=== PATIENT | female | born 1950 | race Caucasian/White ===

== ENCOUNTER 2017-07-30 08:00 | Outpatient (CLI) | payer MEDICARE, OTHER ==
[2017-07-30 19:24] LABS: BASOPHILS # (AUTO) 0.1 10^3/uL (0.0-0.1); BASOPHILS % (AUTO) 0.7 %; EOSINOPHILS # (AUTO) 0.6 10^3/uL (0.0-0.7); EOSINOPHILS % (AUTO) 7.5 %; HGB - HEMOGLOBIN 14.5 g/dL (12.0-16.0); LYMPHOCYTES # (AUTO) 0.9 10^3/uL (1.5-3.5); MEAN CORPUSCULAR HEMOGLOBIN 28.7 pg (27.0-31.0); MEAN CORPUSCULAR HGB CONC 32.4 g/dL (32.0-36.0); MEAN CORPUSCULAR VOLUME 88.8 fL (81.0-99.0); MEAN PLATELET VOLUME 10.4 fL (7.9-10.8); MONOCYTES # (AUTO) 0.6 10^3/uL (0.0-1.0); MONOCYTES % (AUTO) 7.8 %; NEUTROPHILS # (AUTO) 5.7 10^3/uL (1.5-6.6); PLT - PLATELET COUNT 275 10^3/uL (130-450); RED BLOOD COUNT 5.06 10^6/uL (4.20-5.40); RED CELL DISTRIBUTION WIDTH 12.8 % (12.0-15.0); WHITE BLOOD COUNT 7.9 x10^3/uL (4.8-10.8)
[2017-07-31 13:52] LABS: HEPATITIS C ANTIBODY NON-REACTIVE (NON-REACTIVE)
== END 2017-07-30 08:01 | disposition home or self-care (01) ==
LOC: LAB.WCP 08:00
PROVIDERS: ATTEND Family Medicine
DX: F43.21 Adjustment disorder with depressed mood (principal); F32.9 Major depressive disorder, single episode, unspecified; R53.82 Chronic fatigue, unspecified; Z11.59 Encounter for screening for other viral diseases
CPT/HCPCS: 36415; 84443; 85025; 86803

== ENCOUNTER 2017-08-20 08:00 | Outpatient (CLI) | payer MEDICARE, OTHER ==
[2017-08-20 18:57] LABS: BASOPHILS # (AUTO) 0.1 10^3/uL (0.0-0.1); BASOPHILS % (AUTO) 0.8 %; EOSINOPHILS # (AUTO) 0.8 10^3/uL (0.0-0.7); LYMPHOCYTES % (AUTO) 11.2 %; MEAN CORPUSCULAR HEMOGLOBIN 28.7 pg (27.0-31.0); MEAN CORPUSCULAR HGB CONC 32.8 g/dL (32.0-36.0); MEAN CORPUSCULAR VOLUME 87.3 fL (81.0-99.0); MEAN PLATELET VOLUME 10.7 fL (7.9-10.8); MONOCYTES # (AUTO) 0.7 10^3/uL (0.0-1.0); MONOCYTES % (AUTO) 7.9 %; NEUTROPHILS # (AUTO) 6.4 10^3/uL (1.5-6.6); NEUTROPHILS % (AUTO) 71.1 %; PLT - PLATELET COUNT 305 10^3/uL (130-450); RED BLOOD COUNT 5.25 10^6/uL (4.20-5.40); RED CELL DISTRIBUTION WIDTH 13.3 % (12.0-15.0)
[2017-08-20 19:49] LABS: CALCIUM 9.5 mg/dL (8.5-10.3); CREATININE 0.7 mg/dL (0.4-1.0)
== END 2017-08-20 08:01 | disposition home or self-care (01) ==
LOC: LAB.WCP 08:00
PROVIDERS: ATTEND Family Medicine
DX: E87.1 Hypo-osmolality and hyponatremia (principal); G56.00 Carpal tunnel syndrome, unspecified upper limb; R53.82 Chronic fatigue, unspecified
CPT/HCPCS: 36415; 80048; 85025

== ENCOUNTER 2017-11-08 17:24 | Outpatient (CLI) | payer MEDICARE, OTHER | END 2017-11-08 17:25 | disposition short-term general hospital (02) | LOC: EMS 17:24 | PROVIDERS: ATTEND Surgery | DX: R06.00 Dyspnea, unspecified (principal) | CPT/HCPCS: A0170; A0425; A0427; A0433 ==

== ENCOUNTER 2017-11-08 17:37 | Emergency (ER) | payer MEDICARE, OTHER ==
[2017-11-08] MEDS ORDERED: ALBUTEROL NEB 2.5 MG/3 ML INH STA ×2 (17:39→18:33)
[2017-11-08] MEDS ORDERED: DEXAMETHASONE 10 MG/ML VIAL IVP STA (17:39)
--- NOTE | 2017-11-08 17:42 | ED Physician Documentation ---
PD HPI DYSPNEA - Stated complaint Stated Complaint: RESP DISTRESS - History obtained from History obtained from: Patient, EMS - History of Present Illness Timing - onset: Other (67-year-old woman with history of COPD with home O2 and has been intubated before for exacerbations of COPD presents with a two-week illness with worsening productive cough and shortness of breath became much worse today despite using nebs at home. There is no fever. She denies any chest pain but does have some upper back pain. She received partial DuoNeb in route without much improvement.) Review of Systems Ten Systems: 10 systems reviewed and negative Constitutional: denies: Fever, Chills Throat: denies: Dental pain / toothache, Sore throat Cardiac: denies: Chest pain / pressure, Palpitations Respiratory: reports: Dyspnea, Cough. denies: Hemoptysis, Wheezing PD PAST MEDICAL HISTORY - Past Medical History Cardiovascular: None Respiratory: COPD, Other Neuro: None Endocrine/Autoimmune: HyPOthyroidism GI: None DIE ATTACHER: None : None HEENT: None Psych: Claustrophobia Musculoskeletal: Osteoarthritis Derm: None - Past Surgical History Past Surgical History: Yes General: Appendectomy Ortho: Shoulder arthroplasty /DIE ATTACHER: Hysterectomy HEENT: Cataracts, Tonsil/Adenoidectomy - Present Medications Home Medications: Ambulatory Orders Medication Instructions Recorded Confirmed Albuterol [Ventolin Hfa] 2 puffs INH Q4H PRN 03/10/13 08/21/15 Multivitamin [Multivitamins] 1 tab PO DAILY 03/10/13 08/22/15 [place]-3 Fatty Acids/Fish Oil 1 each PO DAILY 03/10/13 08/22/15 [[place] 3 Fish Oil Softgel] Aspirin Chewable [[place] 81 mg PO DAILY 04/29/13 08/21/15 Aspirin] Albuterol Sulfate 2.5 mg IH .BID-QID PRN 08/22/15 08/22/15 Budesonide [Pulmicort Flexhaler] 1 puffs IH BID 08/22/15 08/22/15 Olodaterol HCl [[place] Respimat] 2 puffs IH DAILY 08/22/15 08/22/15 Theophylline Anhydrous [Theochron] 200 mg PO Q12H 08/22/15 08/22/15 Tiotropium [place] [Spiriva 2 puffs IH DAILY 01/25/16 01/25/16 Respimat] Levalbuterol [Xopenex] 11/08/17 11/08/17 - Allergies Allergies/Adverse Reactions: Allergies Allergy/AdvReac Type Severity Reaction Status Date / Time barley AdvReac Respiratory Verified 08/26/15 07:17 corn AdvReac Respiratory Verified 08/26/15 07:19 oats AdvReac Respiratory Verified 08/26/15 07:19 rice AdvReac Respiratory Verified 08/26/15 07:19 wheat AdvReac Respiratory Verified 08/26/15 07:19 - Social History Does the pt smoke?: No Smoking Status: Former smoker Does the pt drink ETOH?: No Does the pt have substance abuse?: No - Immunizations Immunizations are current?: Yes - POLST Patient has POLST: No POLST Status: Full Code PD ED PE NORMAL - Vitals Vital signs reviewed: Yes - General General: Alert and oriented X 3, Other (She is in moderate respiratory distress , speaking in very short sentences) - HEENT HEENT: PERRL, EOMI, Ears normal - Neck Neck: Supple, no meningeal sign, No bony TTP - Cardiac Cardiac: RRR, No murmur - Respiratory Respiratory: Other (Speaking in short sentences and tachypneic, she is tight throughout with rhonchi throughout) - Abdomen Abdomen: Soft, Non tender - Back Back: No CVA TTP, No spinal TTP - Derm Derm: Normal color, Warm and dry - Extremities Extremities: No edema, No calf tenderness / cord - Neuro Neuro: Alert and oriented X 3, Normal speech - Psych Psych: Normal mood, Normal affect Results - Vitals Vitals: Vital Signs - 24 hr 11/08/17 11/08/17 11/08/17 17:39 17:50 18:48 Temperature 36.4 C L Heart Rate 123 H 120 H 122 H Respiratory 32 H 22 22 Rate Blood Pressure 151/81 H O2 Saturation 100 11/08/17 11/08/17 18:49 19:01 Temperature Heart Rate 123 H 128 H Respiratory 20 20 Rate Blood Pressure 168/83 H 114/74 O2 Saturation 97 96 Oxygen O2 Source Room air - EKG (time done) 1743 Rate: Rate (enter#) (114) Rhythm: Sinus tachycardia [place]: Normal Intervals: Normal MO QRS: Normal Ischemia: Normal ST segments Computer interpretation: Agree with computer - Labs Labs: Laboratory Tests 11/08/17 11/08/17 11/08/17 17:43 17:43 17:43 WBC 17.1 H RBC 5.37 Hgb 15.0 Hct 45.3 MCV 84.3 MCH 27.9 MCHC 33.1 RDW 14.0 Plt Count 341 MPV 8.0 Neut # 11.7 H Lymph # 1.5 [place] # 1.1 H Eos # 2.6 H Baso # 0.1 Absolute Nucleated RBC 0.01 Band Neuts % (Manual) Not Reportable Abnorm Lymph % (Manual) Not Reportable Nucleated RBC % 0.1 Neutrophils # (Manual) Not Reportable Lymphocytes # (Manual) Not Reportable Monocytes # (Manual) Not Reportable Eosinophils # (Manual) Not Reportable Basophils # (Manual) Not Reportable Differential Comment MANUAL=AUTO DIFF Platelet Estimate NORMAL (130-450,000) Platelet Morphology NORMAL APPEARANCE RBC Morph Micro Appear NORMAL APPEARANCE PT 12.4 INR 1.1 Bld Gas Analysis Time Sample Site ABG pH ABG pCO2 ABG pO2 ABG HCO3 ABG Total CO2 ABG O2 Saturation ABG Oximetry Spot Check ABG Base Excess Dae Test VBG pH VBG pCO2 VBG pO2 VBG HCO3 VBG Total CO2 VBG O2 Saturation VBG Base Excess Respiration Rate O2 Delivery Device Vent Mode FiO2 Tidal Volume PEEP Pressure Support Vent Sodium 135 Potassium 4.3 Chloride 97 L Carbon Dioxide 32 Anion Gap 6.0 BUN 17 Creatinine 0.6 Estimated GFR (MDRD) 100 Glucose 136 H Lactic Acid Calcium 9.4 Total Bilirubin 0.4 AST 21 ALT 18 Alkaline Phosphatase 62 Troponin I Total Protein 8.1 Albumin 3.8 Globulin 4.3 H Albumin/Globulin Ratio 0.9 L Lipase 10 L Influenza A (Rapid) Influenza B (Rapid) 11/08/17 11/08/17 11/08/17 17:43 17:43 17:43 WBC RBC Hgb Hct MCV MCH MCHC RDW Plt Count MPV Neut # Lymph # [place] # Eos # Baso # Absolute Nucleated RBC Band Neuts % (Manual) Abnorm Lymph % (Manual) Nucleated RBC % Neutrophils # (Manual) Lymphocytes # (Manual) Monocytes # (Manual) Eosinophils # (Manual) Basophils # (Manual) Differential Comment Platelet Estimate Platelet Morphology RBC Morph Micro Appear PT INR Bld Gas Analysis Time Sample Site ABG pH ABG pCO2 ABG pO2 ABG HCO3 ABG Total CO2 ABG O2 Saturation ABG Oximetry Spot Check ABG Base Excess Dae Test VBG pH 7.296 L VBG pCO2 62.4 H VBG pO2 35.2 VBG HCO3 29.7 H VBG Total CO2 31.7 H VBG O2 Saturation 68.9 VBG Base Excess 1.3 Respiration Rate O2 Delivery Device Vent Mode FiO2 Tidal Volume PEEP Pressure Support Vent Sodium Potassium Chloride Carbon Dioxide Anion Gap BUN Creatinine Estimated GFR (MDRD) Glucose Lactic Acid 1.6 Calcium Total Bilirubin AST ALT Alkaline Phosphatase Troponin I < 0.04 Total Protein Albumin Globulin Albumin/Globulin Ratio Lipase Influenza A (Rapid) Influenza B (Rapid) 11/08/17 11/08/17 18:55 19:20 WBC RBC Hgb Hct MCV MCH MCHC RDW Plt Count MPV Neut # Lymph # [place] # Eos # Baso # Absolute Nucleated RBC Band Neuts % (Manual) Abnorm Lymph % (Manual) Nucleated RBC % Neutrophils # (Manual) Lymphocytes # (Manual) Monocytes # (Manual) Eosinophils # (Manual) Basophils # (Manual) Differential Comment Platelet Estimate Platelet Morphology RBC Morph Micro Appear PT INR Bld Gas Analysis Time 192 Sample Site RIGHT RADIAL ABG pH 7.39 ABG pCO2 43 ABG pO2 128 H ABG HCO3 25.8 ABG Total CO2 27.1 ABG O2 Saturation 98 ABG Oximetry Spot Check 96 ABG Base Excess 0.7 Dae Test POSITIVE VBG pH VBG pCO2 VBG pO2 VBG HCO3 VBG Total CO2 VBG O2 Saturation VBG Base Excess Respiration Rate 20 O2 Delivery Device VENTILATOR Vent Mode SIMV FiO2 50.00 Tidal Volume 400 PEEP 5 Pressure Support Vent 10 Sodium Potassium Chloride Carbon Dioxide Anion Gap BUN Creatinine Estimated GFR (MDRD) Glucose Lactic Acid Calcium Total Bilirubin AST ALT Alkaline Phosphatase Troponin I Total Protein Albumin Globulin Albumin/Globulin Ratio Lipase Influenza A (Rapid) Negative Influenza B (Rapid) Negative Procedures - Intubation Provider: Emergency physician Medications: Etomidate (20mg IVP), Succinylcholine (200mg IVP) Blade: [place] (3) Tube: Size-enter number (7.5), Cuffed Route: Oral Confirmation: Direct visualization, Bilateral breath sounds, No abdominal breath sound, Pulse ox, Chest xray Complications: No compications PD MEDICAL DECISION MAKING - ED course ED course: 67-year-old woman with history of severe COPD and patient's for same presents with respiratory distress and evidence of pneumonia on x-ray. She was quickly tiring out after initial presentation here and felt like she needed intubation and I agreed. She confirmed that her daughter can make decisions for her and requested transfer to [facility] after intubation as opposed to staying here. She was put on a fentanyl drip and had a couple boluses of Ativan. She received Levaquin and vancomycin for the large left-sided pneumonia. I spoke with Dr. SAENZ, warehousing technician at [facility] who accepted her in transfer at 1920, cobras completed. Family in agreement. Of note because of wind airlift was unable to fly and she will need to be transferred by ground - Critical Care Time(min): 45 Time Includes: Direct patient care, Review records, Reassess patient, Document care, Coordinate care, Medical consult, Family consult for tx jun Data interpretation: Labs, Pulse ox Procedures included in critical care time: Peripheral IV Procedures excluded from critical care time: EKG Departure - Departure Disposition: 02 Transfer Acute Care Hosp Clinical Impression: Severe chronic obstructive pulmonary disease Respiratory failure Qualifiers: Chronicity: acute Respiratory failure complication: hypoxia and hypercapnia Qualified Code(s): J96.01 - Acute respiratory failure with hypoxia Pneumonia Qualifiers: Pneumonia type: due to unspecified organism Laterality: left Lung location: unspecified part of lung Qualified Code(s): J18.9 - Pneumonia, unspecified organism Condition: Critical
[2017-11-08 17:55] LABS: VBG BASE EXCESS 1.3 mmol/L (-2 - +2); VBG PCO2 62.4 mmHg (41-51); VBG PH 7.296 (7.31-7.41); VBG PO2 35.2 mmHg (25-47); VBG TOTAL CO2 31.7 mmol/L (24-29)
[2017-11-08 17:56] LABS: BASOPHILS # (AUTO) 0.1 10^3/uL (0.0-0.1); BASOPHILS % (AUTO) 0.6 %; EOSINOPHILS # (AUTO) 2.6 10^3/uL (0.0-0.7); EOSINOPHILS % (AUTO) 15.5 %; LYMPHOCYTES # (AUTO) 1.5 10^3/uL (1.5-3.5); LYMPHOCYTES % (AUTO) 8.7 %; MEAN CORPUSCULAR HEMOGLOBIN 27.9 pg (27.0-31.0); MEAN CORPUSCULAR HGB CONC 33.1 g/dL (32.0-36.0); MEAN CORPUSCULAR VOLUME 84.3 fL (81.0-99.0); MONOCYTES # (AUTO) 1.1 10^3/uL (0.0-1.0); MONOCYTES % (AUTO) 6.6 %; NEUTROPHILS # (AUTO) 11.7 10^3/uL (1.5-6.6); NEUTROPHILS % (AUTO) 68.6 %; PLT - PLATELET COUNT 341 10^3/uL (130-450); RED BLOOD COUNT 5.37 10^6/uL (4.20-5.40); WHITE BLOOD COUNT 17.1 x10^3/uL (4.8-10.8)
[2017-11-08 17:58] LABS: INR 1.1 (0.8-1.2); PT - PROTHROMBIN TIME 12.4 secs (9.9-12.6)
[2017-11-08 18:03] LABS: ALBUMIN 3.8 g/dL (3.2-5.5); ALBUMIN/GLOBULIN RATIO 0.9 (1.0-2.2); BILIRUBIN,TOTAL 0.4 mg/dL (0.2-1.0); CALCIUM 9.4 mg/dL (8.5-10.3); CREATININE 0.6 mg/dL (0.4-1.0); TOTAL PROTEIN 8.1 g/dL (6.7-8.2)
[2017-11-08] MEDS ORDERED: LORazepam 2 MG/ML VIAL IVP STA ×3 (18:07→20:36)
[2017-11-08] MEDS ORDERED: SUCCINYLCHOLINE 200 MG/10 ML VIAL IVP STA (18:07)
[2017-11-08] MEDS ORDERED: ETOMIDATE 40 MG/20 ML VIAL IVP STA (18:07)
[2017-11-08] MEDS ORDERED: VANCOMYCIN INJ 1.5 GM in SODIUM CHLORIDE 0.9% 500 ML IV STA (18:14)
[2017-11-08] MEDS ORDERED: levoFLOXacin 750 MG/150 ML 750 MG/150 ML BAG IV ONE (18:14)
--- NOTE | 2017-11-08 18:16 | XRAY Report ---
EXAM: CHEST RADIOGRAPHY EXAM DATE: 11/08/2017 05:58 PM. CLINICAL HISTORY: Dyspnea. COMPARISON: 08/01/2017. TECHNIQUE: 1 view. FINDINGS: Lungs/Pleura: Hyperexpanded with coarse lung markings. Increased hazy infiltration throughout the lef t lung, notably in the mid to lower lung zones. Small left effusion. No right effusion, consolidation , or pneumothorax. Mediastinum: Within exam limitations, the cardiomediastinal contour is normal. Upper lobe vessels not distended. Other: Osteopenia. IMPRESSION: Increased infiltrates predominantly in the left mid and lower lung zones. [facility] Referring Provider Line: [phone] SITE ID: [id number]
[2017-11-08] MEDS ORDERED: SODIUM CHLORIDE 0.9% 250 ML IV ONE (18:20)
[2017-11-08] MEDS ORDERED: fentaNYL 100 MCG/2 ML VIAL IVP STA (18:37)
[2017-11-08] MEDS ORDERED: fentaNYL 2,500 MCG in SODIUM CHLORIDE 0.9% 200 ML IV SCH (19:00)
[2017-11-08 19:14] LABS: DIFFERENTIAL COMMENT MANUAL=AUTO DIFF; PLATELET ESTIMATE, MANUAL NORMAL (130-450,000) (NORMAL); PLATELET MORPHOLOGY NORMAL APPEARANCE (NORMAL); RBC MORPHOLOGY (MULTIPLE) NORMAL APPEARANCE (NORMAL)
--- NOTE | 2017-11-08 19:24 | XRAY Preliminary Report ---
Exam: XR CHEST 1 VIEW X-RAY IMPRESSION: 1. Tip of endotracheal tube 5 cm above the shawn. 2. Decreasing acute on chronic lung disease involving the left lung. Right to left mediastinal shift indicates an atelectatic component as regards to the left lung findings. 3. Left hilar fullness raising the possibility of a left hilar mass. [facility] SITE ID: [id number]
[2017-11-08 19:26] LABS: ABG BASE EXCESS 0.7 mmol/L (-2.0-3.0); ABG HCO3 25.8 mmol/L (22.0-26.0); ABG OXYGEN SATURATION 98 % (94-98); ABG PCO2 43 mmHg (34-45); ABG PH 7.39 (7.35-7.45); ABG PO2 128 mmHg (80-100); ABG TCO2 27.1 MMOL/L (21.0-29.0); ALLEN TEST POSITIVE
--- NOTE | 2017-11-08 19:33 | XRAY Report ---
EXAM: CHEST RADIOGRAPHY EXAM DATE: 11/08/2017 06:37 PM. CLINICAL HISTORY: Intubated. Respiratory distress. COMPARISON: Earlier today at 1749. Chest CT 07/02/2014. TECHNIQUE: 1 view. FINDINGS: Lungs/Pleura: Overexpanded right lung, emphysematous changes. Relative volume lossin the left lung as compared to the right. Mild decrease in the patchy reticulonodular infiltrates seen involving the inferior half of the left lung. Persistent small left pleural effusion. No pneumothorax. Mediastinum: Heart is normal caliber. Stable mild [id number] mediastinal shift. Left hilar enlarge ment. Other: Interval intubation with the tip of the endotracheal tube 5 cm above the shawn. IMPRESSION: 1. Tip of the endotracheal tube 5 cm above the shawn. 2. Decreasing acute on chronic lung disease involving the left lung. [id number] mediastinal shift indicates an atelectatic component as regards to the left lung findings. 3. Left hilar fullness raising the possibility of a left hilar mass. [facility] Referring Provider Line: [phone] SITE ID: [id number]
[2017-11-08] MEDS ORDERED: VANCOMYCIN 1 GM VIAL ONE (20:26)
[2017-11-08] MEDS ORDERED: ONDANSETRON 4 MG/2 ML VIAL IVP STA (20:36)
[2017-11-08 20:59] VITALS: BP 89/69
== END 2017-11-08 21:01 | disposition short-term general hospital (02) ==
LOC: ED 17:37
DX: J96.01 Acute respiratory failure with hypoxia (principal); J18.9 Pneumonia, unspecified organism; J44.0 Chronic obstructive pulmonary disease with (acute) lower respiratory infection; Z79.51 Long term (current) use of inhaled steroids; Z79.82 Long term (current) use of aspirin; Z87.891 Personal history of nicotine dependence
CPT/HCPCS: 31500; 36415; 51702; 71045; 80053; 82803; 83605; 83690; 84484; 85025; 85610; 87040; 87275; 87276; 93005; 94640; 94770; 96365; 96367; 96375; 96376; 99291; J0330; J2060; J3010; J3370; 36600; 43752; 99285

== ENCOUNTER 2017-12-09 21:44 | Outpatient (CLI) | payer MEDICARE, OTHER | END 2017-12-09 21:45 | disposition critical access hospital (66) | LOC: EMS 21:44 | PROVIDERS: ATTEND Surgery | DX: R06.00 Dyspnea, unspecified (principal) | CPT/HCPCS: A0425; A0433 ==

== ENCOUNTER 2017-12-09 21:55 | Inpatient (IN) | payer MEDICARE, OTHER ==
[2017-12-09] MEDS ORDERED: ALBUTEROL NEB 2.5 MG/3 ML INH ONE ×2 (22:13→22:45)
[2017-12-09] MEDS ORDERED: CALCIUM GLUCONATE 1000 MG/10 ML VIAL ONE (22:14)
[2017-12-09 22:16] LABS: EOSINOPHILS % (AUTO) 19.7 %; HGB - HEMOGLOBIN 13.9 g/dL (12.0-16.0); LYMPHOCYTES % (AUTO) 14.8 %; MEAN CORPUSCULAR HEMOGLOBIN 26.9 pg (27.0-31.0); MEAN CORPUSCULAR HGB CONC 31.2 g/dL (32.0-36.0); MEAN CORPUSCULAR VOLUME 86.1 fL (81.0-99.0); MEAN PLATELET VOLUME 7.6 fL (7.9-10.8); MONOCYTES % (AUTO) 4.6 %; NEUTROPHILS % (AUTO) 59.9 %; PLT - PLATELET COUNT 387 10^3/uL (130-450); RED BLOOD COUNT 5.15 10^6/uL (4.20-5.40); RED CELL DISTRIBUTION WIDTH 15.2 % (12.0-15.0); WHITE BLOOD COUNT 13.4 x10^3/uL (4.8-10.8)
[2017-12-09] MEDS ORDERED: MORPHINE 2 MG/ML SYRINGE IVP PRN (22:20)
[2017-12-09] MEDS ORDERED: MIDAZOLAM 2 MG/2 ML VIAL IVP PRN (22:20)
[2017-12-09] MEDS ORDERED: PROCHLORPERAZINE 10 MG/2 ML VIAL IVP PRN (22:20)
[2017-12-09] MEDS ORDERED: TERBUTALINE 1 MG/ML VIAL SUBQ ONE (22:21)
--- NOTE | 2017-12-09 22:22 | ED Physician Documentation ---
PD HPI DYSPNEA - Stated complaint Stated Complaint: RESPITORY DISTRESS - Chief complaint Chief Complaint: Resp - History obtained from History obtained from: EMS - History of Present Illness Timing - onset: Today Timing - details: Gradual onset, Still present Improved by: O2, Inhaler/neb Associated symptoms: Cough, Wheezing Similar symptoms before: Work up / diagnostics, Treatment Recently seen: Not recently seen - Additional information Additional information: Patient is a 67 year old female with a history of copd and pulmonary htn who was brought in by ems for respiratory failure. According to ems the patient's daughter called because the patient was hypxoic and was getting progressively worse. When ems arrived patient was found to be hypooxic around 80%. Patient was treated with nebulizer treatments. As patient walked downstairs she became even more hypoxic and asked to be intubated. (patient has been intubated in the past). Patient was successfully intubated and brought to the emergency department. Review of Systems Unable to obtain: Intubated PD PAST MEDICAL HISTORY - Past Medical History Cardiovascular: None Respiratory: COPD, Other Endocrine/Autoimmune: HyPOthyroidism GI: None TRAINS DISPATCHER SUPERVISOR: None : None HEENT: None Psych: Claustrophobia Musculoskeletal: Osteoarthritis Derm: None - Past Surgical History Past Surgical History: Yes General: Appendectomy Ortho: Shoulder arthroplasty /TRAINS DISPATCHER SUPERVISOR: Hysterectomy HEENT: Cataracts, Tonsil/Adenoidectomy - Present Medications Home Medications: Ambulatory Orders Medication Instructions Recorded Confirmed Albuterol [Ventolin Hfa] 2 puffs INH Q4H PRN 03/10/13 08/21/15 Multivitamin [Multivitamins] 1 tab PO DAILY 03/10/13 08/22/15 [place]-3 Fatty Acids/Fish Oil 1 each PO DAILY 03/10/13 08/22/15 [[place] 3 Fish Oil Softgel] Aspirin Chewable [[place] 81 mg PO DAILY 04/29/13 08/21/15 Aspirin] Albuterol Sulfate 2.5 mg IH .BID-QID PRN 08/22/15 08/22/15 Budesonide [Pulmicort Flexhaler] 1 puffs IH BID 08/22/15 08/22/15 Olodaterol HCl [[place]di Respimat] 2 puffs IH DAILY 08/22/15 08/22/15 Theophylline Anhydrous [Theochron] 200 mg PO Q12H 08/22/15 08/22/15 Tiotropium [place] [Spiriva 2 puffs IH DAILY 08/22/15 08/22/15 Respimat] Levalbuterol [Xopenex] 11/08/17 11/08/17 - Allergies Allergies/Adverse Reactions: Allergies Allergy/AdvReac Type Severity Reaction Status Date / Time barley AdvReac Respiratory Verified 08/26/15 07:17 corn AdvReac Respiratory Verified 08/26/15 07:19 oats AdvReac Respiratory Verified 08/26/15 07:19 rice AdvReac Respiratory Verified 08/26/15 07:19 wheat AdvReac Respiratory Verified 08/26/15 07:19 - Social History Does the pt smoke?: No Smoking Status: Never smoker Does the pt drink ETOH?: No Does the pt have substance abuse?: No - Immunizations Immunizations are current?: Yes - POLST Patient has POLST: No POLST Status: Full Code PD ED PE NORMAL - Vitals Vital signs reviewed: Yes - HEENT HEENT: Atraumatic - Abdomen Abdomen: Non distended - Derm Derm: Normal color PD ED PE EXPANDED - General General: Unresponsive, Other (intubated) - HEENT HEENT: Other (intubated) - Neck Neck: JVD present - Cardiac Cardiac: Tachy - Respiratory Respiratory: Wheezing, Other (intubated, breath sounds bilaterally) - Extremities Extremities: No: Pedal edema bilateral - Neuro Neuro: Other (intubated but starting to wake up) Results - Vitals Vitals: Vital Signs - 24 hr 12/09/17 21:55 Temperature 36.7 C Heart Rate 144 H Respiratory 21 Rate O2 Saturation 96 Oxygen O2 Source Mechanical ventilator - EKG (time done) 2204 Rate: Rate (enter#) (121) Rhythm: Sinus tachycardia [place]: LAD QRS: LVH Ischemia: Q waves Compare to prior EKG: Unchanged from prior EKG - Labs Labs: Laboratory Tests 12/09/17 12/09/17 12/09/17 22:00 22:00 22:00 WBC 13.4 H RBC 5.15 Hgb 13.9 Hct 44.3 MCV 86.1 MCH 26.9 L MCHC 31.2 L RDW 15.2 H Plt Count 387 MPV 7.6 L Neut # Not Reportable Lymph # Not Reportable [place] # Not Reportable Eos # Not Reportable Baso # Not Reportable Absolute Nucleated RBC Not Reportable Total Counted 100 Band Neuts % (Manual) 0 Abnorm Lymph % (Manual) 0 Nucleated RBC % Not Reportable Neutrophils # (Manual) 9.0 H Lymphocytes # (Manual) 2.1 Monocytes # (Manual) 0.3 Eosinophils # (Manual) 2.0 H Basophils # (Manual) 0.0 Differential Comment MANUAL DIFFERENTIAL Manual Slide Review Indicated WBC Morphology NORMAL APPEARANCE Platelet Estimate NORMAL (130-450,000) Platelet Morphology NORMAL APPEARANCE RBC Morph Micro Appear NORMAL APPEARANCE Lactic Acid 1.9 Phosphorus Magnesium Troponin I < 0.04 B-Natriuretic Peptide 12/09/17 12/09/17 22:00 22:00 WBC RBC Hgb Hct MCV MCH MCHC RDW Plt Count MPV Neut # Lymph # [place] # Eos # Baso # Absolute Nucleated RBC Total Counted Band Neuts % (Manual) Abnorm Lymph % (Manual) Nucleated RBC % Neutrophils # (Manual) Lymphocytes # (Manual) Monocytes # (Manual) Eosinophils # (Manual) Basophils # (Manual) Differential Comment Manual Slide Review WBC Morphology Platelet Estimate Platelet Morphology RBC Morph Micro Appear Lactic Acid Phosphorus 4.8 H Magnesium 1.9 Troponin I B-Natriuretic Peptide 147 H - Rads (name of study) chest x-ray Radiology: Final report received (pulmonary congestion vs fibrosis and scarring ) PD MEDICAL DECISION MAKING - ED course Complexity details: reviewed old records, reviewed results, re-evaluated patient , considered differential, d/w family, d/w senior staff consultant ED course: Patient was seen and examined at bedside immediately. patient was already intubated sedation was ordered. ekg was performed which showed sinus tach and was relatively unchanged when compared to previous. Patient was treated with continuous albuterol nebs, solumedrol, terbutaline, and magnesium. chest x-ray was performed and previous imaging and notes were reviewed. High School Foreign Language Tutor was at bedside and agreed to admission. Patient was admitted to the critical care unit. - Critical Care Time(min): 30 Time Includes: Direct patient care, Review records, Reassess patient Data interpretation: Labs, Pulse ox, ABG, CXR, Prior EKG, Cardiac output Departure - Departure Disposition: [facility] DC/Xfer Clinical Impression: Severe chronic obstructive pulmonary disease, Respiratory failure Condition: Critical
[2017-12-09 22:23] LABS: ABNORMAL LYMPHS % (MANUAL) 0 %; BAND NEUTROPHILS % (MANUAL) 0 %
[2017-12-09] MEDS ORDERED: MAGNESIUM SULFATE 2 GRAM 2 GM/50 ML BAG IV ONE (22:26)
[2017-12-09] MEDS ORDERED: methylPREDNISolone SUCCINATE 125 MG/2 ML VIAL IVP STA (22:27)
[2017-12-09] MEDS ORDERED: CALCIUM GLUCONATE 1000 MG/10 ML VIAL IVP STA (22:27)
[2017-12-09] MEDS ORDERED: SODIUM CHLORIDE 0.9% 1,000 ML IV ONE ×3 (22:33→23:15)
[2017-12-09 22:37] LABS: LYMPHOCYTES # (MANUAL) 2.1 10^3/uL (1.5-3.5); LYMPHOCYTES % (MANUAL) 16 %; MONOCYTES # (MANUAL) 0.3 10^3/uL (0.0-1.0); NEUTROPHILS % (MANUAL) 67 %; PLATELET ESTIMATE, MANUAL NORMAL (130-450,000) (NORMAL); PLATELET MORPHOLOGY NORMAL APPEARANCE (NORMAL); RBC MORPHOLOGY (MULTIPLE) NORMAL APPEARANCE (NORMAL)
--- NOTE | 2017-12-09 22:37 | XRAY Report ---
EXAM: CHEST RADIOGRAPHY EXAM DATE: 12/09/2017 10:14 PM. CLINICAL HISTORY: Intubation. COMPARISON: 11/08/2017. TECHNIQUE: 1 view. FINDINGS: Lungs/Pleura: Hyperexpanded with coarse lung markings and extensive fibrotic changes, left more than right. No consolidation, definite effusion, or pneumothorax. Mediastinum: Overall heart size within normal limits and unchanged. Left hilar fullness. Upper lobe v essels not distended. Other: Endotracheal tube tip at level of aortic arch about 4.9 cm above shawn. IMPRESSION: 1. ETT tip 4.9 cm above shawn. 2. Severe chronic lung disease similar to previous exam. [facility] Referring Provider Line: [phone] SITE ID: [id number]
[2017-12-09 22:38] LABS: DIFFERENTIAL COMMENT MANUAL DIFFERENTIAL
[2017-12-09 22:42] LABS: ABG BASE EXCESS -1.4 mmol/L (-2.0-3.0); ABG HCO3 25.3 mmol/L (22.0-26.0); ABG OXYGEN SATURATION 98 % (94-98); ABG PCO2 51 mmHg (34-45); ABG PH 7.32 (7.35-7.45); ABG PO2 136 mmHg (80-100); ABG TCO2 26.9 MMOL/L (21.0-29.0)
[2017-12-09 22:43] LABS: ALLEN TEST POSITIVE
[2017-12-09 22:52] LABS: BILIRUBIN,URINE NEGATIVE (NEGATIVE); GLUCOSE, URINE (UA) NEGATIVE (NEGATIVE); KETONES,URINE (UA) NEGATIVE (NEGATIVE); LEUKOCYTE ESTERASE, URINE NEGATIVE (NEGATIVE); NITRITE,URINE NEGATIVE (NEGATIVE); OCCULT BLOOD,URINE NEGATIVE (NEGATIVE); PH,URINE 5.5 PH (5.0-7.5); PROTEIN,URINE 30 mg/dL (NEGATIVE); UROBILINOGEN,URINE 0.2 (NORMAL) E.U./dL (NORMAL)
--- NOTE | 2017-12-09 22:57 | HISTORY & PHYSICAL EXAMINATION ---
Chief Complaint - Chief Complaint Chief Complaint: Shortness of breath History of Present Illness - Admitted From Admitted From:: Emergency department - History Obtained From Records Reviewed: Yes History obtained from: Patient's daughter is the patient was intubated Exam Limitations: Patient is intubated and sedated - History of Present Illness HPI Comment/Other: Patient is a 67-year-old female with a past medical history significant for end- stage COPD on 4 L of home oxygen, pulmonary fibrosis, pulmonary hypertension, cor pulmonale, claustrophobia and anxiety who presented to the emergency department with chief complaint of shortness of breath. The patient was recently admitted to [facility] in [place] on on 11/08/2017 for acute respiratory failure with hypoxia and hypercapnia. At that time the patient was found to have pneumonia and a COPD exacerbation. The patient required intubation for 2-3 days and had a prolonged hospitalization over 1 week. According to the patient's daughter the patient returned home with steroids and was continued on her breathing treatments. The patient's daughter states the patient was initially improving and appeared to be getting better. She states the patient was still limited with her exertion. But she states that she was able to walk 5-10 feet without terrible difficulties. The patient however has declined significantly over the last week to 10 days. The patient' s daughter states that the patient had increasing shortness of air over the last 4-5 days. She states that over the last 4 days her mother has been basically bedbound. She states that just sitting up in bed makes her very short of breath and drops her oxygen saturation. She states that her oxygen saturation drops to the low 80s with just sitting up in bed. The patient has also been having a cough. The patient's daughter states that the patient's cough has been getting worse over the last couple of days and she has had increasing hemoptysis. The patient's daughter states that the hemoptysis is been there since her hospitalization at [place]. She states that while the patient was at [place] she self extubated and caused some trauma in her airways and has been having hemoptysis since. The patient has not had any fevers or chills, she denied any chest pain according to the patient's daughter. The patient's daughter states that the patient has not had any changes in her appetite, recent unintentional weight loss, abdominal pain, nausea, vomiting, diarrhea, constipation, or any focal neurologic deficits. The patient's oxygen saturations were as low as 71% today when she sat up in bed and that was on 4-1/2 L of oxygen. She had significant difficulties recovering and was having severe shortness of breath and that is the point at which the patient's daughter decided to call 911. According to the patient's daughter the patient has not been having any headaches, blurred vision, runny nose, sore throat, nasal congestion, orthopnea, PND, increased lower extremity swelling, joint aches, muscle aches, joint swelling, back pain, neck stiffness, night sweats or weight loss. When paramedics arrived at the patient's home the patient was found to be in respiratory distress. She was hypoxic and using accessory muscles of breathing. The paramedics attempted to take her down a flight of stairs and the patient was so severely short of breath that she asked to be intubated. The paramedics found that the patient was declining rapidly and decided to intubate her on scene. The patient was brought to the emergency department on a ventilator. On presentation to the emergency department the patient was afebrile she was tachycardic with a heart rate in the 140s and slightly tachypneic. She was otherwise saturating well on the ventilator at 100% FiO2. The patient underwent routine lab work which showed a leukocytosis of 13.4 and a potassium of 5.3 but was otherwise unremarkable. The patient's troponin was less than 0.04 and BNP was just 147. Patient's urine showed no signs of infection. The patient did undergo a blood gas after she had been on the ventilator for some time. The patient's blood gas did show slight acidosis with hypercapnia and hypoxia. The patient also underwent a chest x-ray which revealed severe chronic lung disease similar to her prior chest x-rays with no obvious new consolidation. However given the severity of the patient's presentation and her recent hospitalization with pneumonia and elevated white blood cell count it was decided that the patient would be treated for pneumonia. The patient was admitted to the intensive care unit for acute respiratory failure with hypoxia and hypercapnia. History - Past Medical History Cardiovascular: reports: Congestive heart failure (Right-sided heart failure with pulmonary hypertension) Respiratory: reports: COPD, Other (Pulmonary fibrosis, pulmonary hypertension) GI: reports: None SUPPLY SERVICE WORKER: reports: None : reports: None HEENT: reports: None Psych: reports: Claustrophobia Musculoskeletal: reports: Osteoarthritis Derm: reports: None MRSA Hx?: No - Past Surgical History General: reports: Appendectomy Ortho: reports: Shoulder arthroplasty /SUPPLY SERVICE WORKER: reports: Hysterectomy HEENT: reports: Cataracts, Tonsil/Adenoidectomy - Family & Social History Family History: Mother: (Mom at 78 with history of IL and was a smoker. Dad at 82 with chronic bronchitis), CAD, IL (Brother of an IL at the age of 60), Father: , COPD/Emphysema, Brother: , IL Living arrangement: At home Living Situation: With family Social History Notes: The patient lives in [place] with her family. She lives with her daughter, granddaughter and disabled . The home is the patient's home. Recently since her hospitalization the patient has been confined to a walker and the bed. She is very limited. Prior to that according to the daughter the patient was still fairly active and able to perform her activities of daily living independently. The patient has been twice and . She has 1 biological child but did raise 6 children through marriage. The patient does not drink alcohol or use any illicit drugs. She was previously a 1 pack per day smoker for 40 years but has quit more than 3 years ago now. - POLST Patient has POLST: No POLST Status: Full Code Meds/Allgy - Home Medications Home Medications: Ambulatory Orders Medication Instructions Recorded Confirmed Albuterol [Ventolin Hfa] 2 puffs INH Q4H PRN 03/10/13 08/21/15 Multivitamin [Multivitamins] 1 tab PO DAILY 03/10/13 08/22/15 [place]-3 Fatty Acids/Fish Oil 1 each PO DAILY 03/10/13 08/22/15 [[place]ard 3 Fish Oil Softgel] Aspirin Chewable [[place] 81 mg PO DAILY 04/29/13 08/21/15 Aspirin] Albuterol Sulfate 2.5 mg IH .BID-QID PRN 08/22/15 08/22/15 Budesonide [Pulmicort Flexhaler] 1 puffs IH BID 08/22/15 08/22/15 Olodaterol HCl [[place]riverdi Respimat] 2 puffs IH DAILY 08/22/15 08/22/15 Theophylline Anhydrous [Theochron] 200 mg PO Q12H 08/22/15 08/22/15 Tiotropium [place] [Spiriva 2 puffs IH DAILY 08/22/15 08/22/15 Respimat] Levalbuterol [Xopenex] 11/08/17 11/08/17 - Allergies Allergies/Adverse Reactions: Allergies Allergy/AdvReac Type Severity Reaction Status Date / Time barley AdvReac Respiratory Verified 08/26/15 07:17 corn AdvReac Respiratory Verified 08/26/15 07:19 oats AdvReac Respiratory Verified 08/26/15 07:19 propofol AdvReac Unknown Verified 12/10/17 00:12 rice AdvReac Respiratory Verified 08/26/15 07:19 wheat AdvReac Respiratory Verified 08/26/15 07:19 Review of Systems - Other Findings Other Findings: A comprehensive review of systems was performed the pertinent positives and negatives are stated above in the HPI and the remainder of the review of systems is negative. Exam - Vital Signs Reviewed Vital Signs: Yes Vital Signs: Vital Signs x48h Pulse Resp BP Pulse Ox 12/09/17 22:50 121 H 15 119/63 98 12/09/17 22:39 114 H 17 121/70 99 12/09/17 22:25 122 H 13 120/92 H 99 - Physical Exam General Appearance: positive: Moderate distress (Patient intubated and sedated) , Other (Patient on a ventilator) Eyes Bilateral: positive: Normal inspection, PERRL, EOMI, No lid inflammation, Conjunctivae nml, No scleral icterus ENT: positive: ENT inspection nml, Pharynx nml, No signs of dehydration. negative: Purulent nasal drainage, Pharyngeal erythema, Oral lesions Neck: positive: Nml inspection, Thyroid nml, No JVD, Trachea midline. negative : Lymphadenopathy (R), Lymphadenopathy (L), Stiff neck, Carotid bruit, Tracheal deviation Respiratory: positive: Wheezes (Patient has scattered wheezes with tight lungs) , Rales (Expiratory crackles), Rhonchi (Coarse lung sounds), Other (Patient has decreased breath sounds bilaterally) Cardiovascular: positive: No murmur, No gallop, Tachycardia Peripheral Pulses: positive: 2+ Abdomen: positive: Non-tender, No organomegaly, Nml bowel sounds, No distention. negative: Guarding, Rebound, Hepatomegaly Back: positive: Nml inspection. negative: CVA tenderness (R), CVA tenderness (L ) Skin: positive: Color nml, No rash, Warm. negative: Diaphoresis, Pallor, Skin rash Extremities: positive: Non-tender, Full ROM, Nml appearance, No pedal edema Neurologic/Psychiatric: positive: Motor nml (She appears to be moving both upper and lower extremities appropriately), Other (Patient is intubated and sedated.) Conclusion/Plan - Problem List (1) Acute on chronic respiratory failure with hypoxia and hypercapnia Conclusion/Plan: Patient was recently hospitalized at [facility] in [place] for 1 week requiring intubation for acute respiratory failure secondary to pneumonia and COPD exacerbation. The patient initially was recovering well but had a significant decline over the last week and a half. The patient became increasingly hypoxic, increasingly short of air, with worsening cough and increasing dyspnea with exertion. Today the patient was in severe respiratory distress and required intubation on arrival of EMS. 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 She has very minimal reserve and even any mild respiratory illness will put her into respiratory failure. Patient's respiratory failure is likely combination of COPD exacerbation and likely pneumonia. Although the patient's chest x-ray is not showing any obvious infiltrate she does have a leukocytosis, tachycardia on presentation and likely does have pneumonia. Plan: Patient will be continued on ventilator and we will wean down vent settings and do CPAP trial once patient is ready Once patient is extubated we will get a palliative care consult as the patient appears to have end-stage COPD and has told her daughter in the past that she has no desire to get a lung transplant. Patient will be treated for COPD exacerbation with IV steroids, duo nebs and ventilator Patient will also be treated for healthcare associated pneumonia with broad- spectrum antibiotics We will continue to monitor patient closely in the intensive care unit If patient is not improving or we are unable to get the patient off the ventilator the patient will be transferred to a larger center with pulmonology and an maintenance construction helper. The patient's request is that if we decide to transfer that she be transferred [facility]. (2) HCAP (healthcare-associated pneumonia) Conclusion/Plan: The patient presented with acute on chronic respiratory failure and required intubation. Although the patient's chest x-ray does not show obvious infiltrate. The patient does present with leukocytosis, tachycardia, hypoxia, hypercapnia and severe respiratory failure. The patient was also recently hospitalized with pneumonia. The patient will be treated for healthcare associated pneumonia and we will reassess with daily chest x-ray, sputum cultures and assessment of her respiratory status. Plan: Patient will be treated with IV vancomycin and Zosyn for healthcare associated pneumonia given her recent hospitalization If patient's repeat chest x-rays, sputum culture are negative and her respiratory status improves we will consider stopping antibiotics Wean off ventilator (3) COPD exacerbation Conclusion/Plan: The patient has end-stage COPD and is on 4 L of oxygen at home. The patient appears to have severe emphysema and pulmonary fibrosis on her chest x-ray. She was recently hospitalized and intubated for a COPD exacerbation in the setting of pneumonia. She appears to be presenting with similar presentation today. She has been intubated and does have very tight lungs on examination. Plan: Patient will be treated with IV Solu-Medrol, duo nebs initially around the clock and then as needed She will be given IV antibiotics for healthcare associated pneumonia Patient will be continued on the ventilator and we will wean down vent settings Patient will need a palliative care consult once she is extubated and stable. (4) Pulmonary hypertension Conclusion/Plan: Patient has pulmonary hypertension and right-sided heart failure according to her previous echocardiogram from 2013. The patient's PA pressure at that time was 48 mmHg I suspect that it is much worse at this time. The patient's pulmonary hypertension and right-sided heart failure is likely secondary to her severe COPD and emphysema Plan: We will get an echocardiogram Treat as above for COPD and pneumonia Palliative care consult (5) DVT prophylaxis Conclusion/Plan: Patient will be placed on Lovenox for DVT prophylaxis while she is hospitalized. - Lab Results Lab results reviewed: Yes Fish Bones: 12/09/17 22:00 12/09/17 22:46 Other Lab Results: Laboratory Results WBC 13.4 x10^3/uL (4.8-10.8) H 12/09/17 22:00 RBC 5.15 10^6/uL (4.20-5.40) 12/09/17 22:00 Hgb 13.9 g/dL (12.0-16.0) 12/09/17 22:00 Hct 44.3 % (37.0-47.0) 12/09/17 22:00 MCV 86.1 fL (81.0-99.0) 12/09/17 22:00 MCH 26.9 pg (27.0-31.0) L 12/09/17 22:00 MCHC 31.2 g/dL (32.0-36.0) L 12/09/17 22:00 RDW 15.2 % (12.0-15.0) H 12/09/17 22:00 Plt Count 387 10^3/uL (130-450) 12/09/17 22:00 MPV 7.6 fL (7.9-10.8) L 12/09/17 22:00 Neut # Not Reportable 12/09/17 22:00 Lymph # Not Reportable 12/09/17 22:00 [place] # Not Reportable 12/09/17 22:00 Eos # Not Reportable 12/09/17 22:00 Baso # Not Reportable 12/09/17 22:00 Absolute Nucleated RBC Not Reportable 12/09/17 22:00 Total Counted 100 12/09/17 22:00 Band Neuts % (Manual) 0 % (0-10) 12/09/17 22:00 Abnorm Lymph % (Manual) 0 % 12/09/17 22:00 Nucleated RBC % Not Reportable 12/09/17 22:00 Neutrophils # (Manual) 9.0 10^3/uL (1.5-6.6) H 12/09/17 22:00 Lymphocytes # (Manual) 2.1 10^3/uL (1.5-3.5) 12/09/17 22:00 Monocytes # (Manual) 0.3 10^3/uL (0.0-1.0) 12/09/17 22:00 Eosinophils # (Manual) 2.0 10^3/uL (0-0.7) H 12/09/17 22:00 Basophils # (Manual) 0.0 10^3/uL (0-0.1) 12/09/17 22:00 Differential Comment MANUAL DIFFERENTIAL 12/09/17 22:00 Manual Slide Review Indicated 12/09/17 22:00 WBC Morphology NORMAL APPEARANCE (NORMAL) 12/09/17 22:00 Platelet Estimate NORMAL (130-450,000) (NORMAL) 12/09/17 22:00 Platelet Morphology NORMAL APPEARANCE (NORMAL) 12/09/17 22:00 RBC Morph Micro Appear NORMAL APPEARANCE (NORMAL) 12/09/17 22:00 Bld Gas Analysis Time 2240 12/09/17 22:31 Sample Site LEFT RADIAL 12/09/17 22:31 ABG pH 7.32 (7.35-7.45) L 12/09/17 22:31 ABG pCO2 51 mmHg (34-45) H 12/09/17 22:31 ABG pO2 136 mmHg (80-100) H 12/09/17 22:31 ABG HCO3 25.3 mmol/L (22.0-26.0) 12/09/17 22:31 ABG Total CO2 26.9 MMOL/L (21.0-29.0) 12/09/17 22:31 ABG O2 Saturation 98 % (94-98) 12/09/17 22:31 ABG Oximetry Spot Check 100 % 12/09/17 22:31 ABG Base Excess -1.4 mmol/L (-2.0-3.0) 12/09/17 22:31 Dae Test POSITIVE 12/09/17 22:31 Respiration Rate 8 b/min 12/09/17 22:31 O2 Delivery Device VENTILATOR 12/09/17 22:31 Vent Mode SIMV 12/09/17 22:31 FiO2 100.00 12/09/17 22:31 Tidal Volume 400 mL 12/09/17 22:31 PEEP 18 cmH2O 12/09/17 22:31 Pressure Support Vent 10 cmH2O 12/09/17 22:31 Sodium 139 mmol/L (135-145) 12/09/17 22:46 Potassium 5.3 mmol/L (3.5-5.0) H 12/09/17 22:46 Chloride 100 mmol/L (101-111) L 12/09/17 22:46 Carbon Dioxide 29 mmol/L (21-32) 12/09/17 22:46 Anion Gap 10.0 (6-13) 12/09/17 22:46 BUN 21 mg/dL (6-20) H 12/09/17 22:46 Creatinine 0.7 mg/dL (0.4-1.0) 12/09/17 22:46 Estimated GFR (MDRD) 84 (>89) L 12/09/17 22:46 Glucose 151 mg/dL (70-100) H 12/09/17 22:46 Lactic Acid 1.9 mmol/L (0.5-2.2) 12/09/17 22:00 Calcium 8.7 mg/dL (8.5-10.3) 12/09/17 22:46 Phosphorus 4.8 mg/dL (2.5-4.6) H 12/09/17 22:00 Magnesium 1.9 mg/dL (1.7-2.8) 12/09/17 22:00 Total Bilirubin 1.0 mg/dL (0.2-1.0) 12/09/17 22:46 AST 25 IU/L (10-42) 12/09/17 22:46 ALT 15 IU/L (10-60) 12/09/17 22:46 Alkaline Phosphatase 57 IU/L (42-121) 12/09/17 22:46 Troponin I < 0.04 ng/mL (<0.49) 12/09/17 22:00 B-Natriuretic Peptide 147 pg/mL (5-100) H 12/09/17 22:00 Total Protein 5.6 g/dL (6.7-8.2) L 12/09/17 22:46 Albumin 2.8 g/dL (3.2-5.5) L 12/09/17 22:46 Globulin 2.8 g/dL (2.1-4.2) 12/09/17 22:46 Albumin/Globulin Ratio 1.0 (1.0-2.2) 12/09/17 22:46 Lipase 15 U/L (22-51) L 12/09/17 22:46 Urine Color YELLOW 12/09/17 22:24 Urine Clarity CLEAR (CLEAR) 12/09/17 22:24 Urine pH 5.5 PH (5.0-7.5) 12/09/17 22:24 Ur Specific [place] >=1.030 (1.002-1.030) H 12/09/17 22:24 Urine Protein 30 mg/dL (NEGATIVE) H 12/09/17 22:24 Urine Glucose (UA) NEGATIVE mg/dL (NEGATIVE) 12/09/17 22:24 Urine Ketones NEGATIVE mg/dL (NEGATIVE) 12/09/17 22:24 Urine Occult Blood NEGATIVE (NEGATIVE) 12/09/17 22:24 Urine Nitrite NEGATIVE (NEGATIVE) 12/09/17 22:24 Urine Bilirubin NEGATIVE (NEGATIVE) 12/09/17 22:24 Urine Urobilinogen 0.2 (NORMAL) E.U./dL (NORMAL) 12/09/17 22:24 Ur Leukocyte Esterase NEGATIVE (NEGATIVE) 12/09/17 22:24 Urine RBC None Seen /HPF (0-5) 12/09/17 22:24 Urine WBC 0-3 /HPF (0-5) 12/09/17 22:24 Ur Squamous Epith Cells RARE Squamous (<= Few) 12/09/17 22:24 Amorphous Sediment Moderate /LPF 12/09/17 22:24 Urine Bacteria Rare /HPF (None Seen) 12/09/17 22:24 Urine Casts 11-25 Hyaline Casts /LPF 12/09/17 22:24 Urine Mucus Moderate Strands 12/09/17 22:24 Urine Culture Comments NOT INDICATED 12/09/17 22:24 - Diagnostic Imaging Results Diagnostic Imaging Results: positive: Final report reviewed Diagnostic Imaging Results Comments: Chest x-ray Impression: 1. ETT tip 4.9 cm above shawn 2. Severe chronic lung disease similar to previous exam. - EKG Results EKG Interpreted Independently: Yes EKG Findings: Peak T waves unchanged from previous. Sinus tachycardia with no ST elevations. - Other Other Results/Comments: Patient will be placed on IV PPI for GI prophylaxis. Core Measures - Anticipated LOS I expect patient to be DC'd or transferred within 96 hours.: Yes - DVT/VTE - Prophylaxis VTE/DVT Prophylaxis med ordered at admit?: Yes
[2017-12-09] MEDS ORDERED: VANCOMYCIN PER PHARMACY 0.1 GM in SODIUM CHLORIDE 0.9% 250 ML IV SCH (23:00)
[2017-12-09] MEDS ORDERED: fentaNYL 2,500 MCG in SODIUM CHLORIDE 0.9% 200 ML IV SCH (23:00)
[2017-12-09 23:08] LABS: AMORPHOUS SEDIMENT,UR Moderate /LPF; BACTERIA,URINE Rare /HPF (None Seen); CLARITY,URINE CLEAR (CLEAR); RBC,URINE None Seen /HPF (0-5); SQUAMOUS EPITHELIAL CELL,UR RARE Squamous (<= Few)
[2017-12-09 23:09] LABS: CASTS, URINE 11-25 Hyaline Casts /LPF; MUCUS,URINE Moderate Strands
[2017-12-09 23:24] LABS: ALBUMIN 2.8 g/dL (3.2-5.5); CALCIUM 8.7 mg/dL (8.5-10.3); CREATININE 0.7 mg/dL (0.4-1.0); TOTAL PROTEIN 5.6 g/dL (6.7-8.2)
[2017-12-09 23:24] LABS: PHOSPHORUS 4.8 mg/dL (2.5-4.6)
[2017-12-09 23:29] LABS: MAGNESIUM 1.9 mg/dL (1.7-2.8)
[2017-12-09] MEDS ORDERED: fentaNYL 100 MCG/2 ML VIAL IVP SCH (23:45)
[2017-12-09] MEDS ORDERED: PROPOFOL 1000 MG/100 ML 100 ML IV SCH (23:45)
[2017-12-10] MEDS ORDERED: PIPERACILLIN/TAZOBACTAM 4.5 GM in SODIUM CHLORIDE 0.9% MINIBAG 100 ML IV SCH ×3 (00:30)
[2017-12-10] MEDS: SODIUM CHLORIDE FLUSH 0.9% 10 ML SYRINGE IVP SCH ×3 (00:57→16:47)
[2017-12-10] MEDS: SODIUM CHLORIDE FLUSH 0.9% 10 ML SYRINGE IVP PRN ×8 (00:57→21:04)
[2017-12-10] MEDS ORDERED: VANCOMYCIN INJ 0.75 GM in SODIUM CHLORIDE 0.9% 250 ML IV SCH (01:00)
[2017-12-10] MEDS: fentaNYL 2,500 MCG in SODIUM CHLORIDE 0.9% 200 ML IV SCH ×3 (01:10→17:18)
[2017-12-10] MEDS ORDERED: SODIUM CHLORIDE 0.9% 1,000 ML IV ONE (02:05)
[2017-12-10] MEDS: PIPERACILLIN/TAZOBACTAM 4.5 GM in SODIUM CHLORIDE 0.9% MINIBAG 100 ML IV SCH ×3 (03:54→20:12)
[2017-12-10] MEDS: IPRATROPIUM/ALBUTEROL 3 ML NEB INH SCH ×4 (04:04→17:53)
[2017-12-10 05:17] LABS: ABG BASE EXCESS -6.5 mmol/L (-2.0-3.0); ABG HCO3 21.9 mmol/L (22.0-26.0); ABG OXYGEN SATURATION 99 % (94-98); ABG PCO2 56 mmHg (34-45); ABG PH 7.21 (7.35-7.45); ABG TCO2 23.6 MMOL/L (21.0-29.0); ALLEN TEST POSITIVE
[2017-12-10 05:22] LABS: ABG PO2 218 mmHg (80-100)
[2017-12-10 05:28] LABS: BASOPHILS % (AUTO) 0.1 %; EOSINOPHILS % (AUTO) 0.3 %; HGB - HEMOGLOBIN 12.9 g/dL (12.0-16.0); LYMPHOCYTES # (AUTO) 0.3 10^3/uL (1.5-3.5); LYMPHOCYTES % (AUTO) 2.9 %; MEAN CORPUSCULAR HGB CONC 31.6 g/dL (32.0-36.0); MEAN CORPUSCULAR VOLUME 85.5 fL (81.0-99.0); MEAN PLATELET VOLUME 7.3 fL (7.9-10.8); MONOCYTES # (AUTO) 0.2 10^3/uL (0.0-1.0); MONOCYTES % (AUTO) 1.6 %; NEUTROPHILS # (AUTO) 11.5 10^3/uL (1.5-6.6); NEUTROPHILS % (AUTO) 95.1 %; PLT - PLATELET COUNT 305 10^3/uL (130-450); RED BLOOD COUNT 4.76 10^6/uL (4.20-5.40); RED CELL DISTRIBUTION WIDTH 14.7 % (12.0-15.0); WHITE BLOOD COUNT 12.1 x10^3/uL (4.8-10.8)
[2017-12-10 05:40] LABS: ALBUMIN 2.9 g/dL (3.2-5.5); BILIRUBIN,TOTAL 0.4 mg/dL (0.2-1.0); CALCIUM 8.1 mg/dL (8.5-10.3); CREATININE 0.6 mg/dL (0.4-1.0); MAGNESIUM 2.3 mg/dL (1.7-2.8); PHOSPHORUS 4.1 mg/dL (2.5-4.6); TOTAL PROTEIN 5.9 g/dL (6.7-8.2)
[2017-12-10 06:00] LABS: DIFFERENTIAL COMMENT MANUAL=AUTO DIFF; PLATELET ESTIMATE, MANUAL NORMAL (130-450,000) (NORMAL); PLATELET MORPHOLOGY 1+ LARGE PLATELETS (NORMAL); RBC MORPHOLOGY (MULTIPLE) NORMAL APPEARANCE (NORMAL)
[2017-12-10] MEDS: methylPREDNISolone SUCCINATE 40 MG/ML VIAL IVP SCH ×3 (06:10→18:32)
[2017-12-10] MEDS: PANTOPRAZOLE 40 MG VIAL IVP SCH (06:10)
[2017-12-10] MEDS ORDERED: VANCOMYCIN INJ 1 GM in SODIUM CHLORIDE 0.9% 250 ML IV SCH (07:39)
[2017-12-10] MEDS: SACCHAROMYCES BOULARDII 250 MG CAPSULE PO SCH ×2 (08:57→16:44)
[2017-12-10] MEDS: ASPIRIN CHEW 81 MG TABLET PO SCH (08:57)
[2017-12-10] MEDS: CHLORHEXIDINE GLUCONATE 15 ML UDC PO SCH ×2 (09:03→21:04)
[2017-12-10] MEDS: ONDANSETRON 4 MG/2 ML VIAL IVP PRN (09:20)
[2017-12-10] MEDS ORDERED: SODIUM CHLORIDE 0.9% 500 ML IV PRN (09:36)
[2017-12-10 10:01] LABS: ABG PCO2 53 mmHg (34-45)
[2017-12-10 10:02] LABS: ABG BASE EXCESS -8.5 mmol/L (-2.0-3.0); ABG HCO3 19.9 mmol/L (22.0-26.0); ABG OXYGEN SATURATION 96 % (94-98); ABG PO2 90 mmHg (80-100); ABG TCO2 21.6 MMOL/L (21.0-29.0); ALLEN TEST NEGATIVE
[2017-12-10 10:05] LABS: ABG PH 7.19 (7.35-7.45)
[2017-12-10] MEDS: ENOXAPARIN 40 MG/0.4 ML SYRINGE SUBQ SCH (10:56)
[2017-12-10] MEDS ORDERED: SODIUM CHLORIDE 0.9% 500 ML IV ONE (11:54)
[2017-12-10] MEDS ORDERED: SODIUM CHLORIDE 0.9% 1,000 ML IV SCH (12:00)
--- NOTE | 2017-12-10 12:00 | PROVIDER PROGRESS NOTE ---
Subjective - Prog Note Date Prog Note Date: 12/10/17 Prog Note Time: 11:58 - Subjective Subjective: Emesis this morning with nausea. Lettuce leaf in the emesis. this made her anxious but once she was able to write on piece of paper and ask RN questions she is calmer. Daughter does not want propofol drip. She also believes albuterol made mom have muscle wasting as well. She is awake at times. Only on fentanyl for sedation. Current Medications - Current Medications Current Medications: Active Medications Albuterol/Ipratropium (Duoneb) 3 ml INH RTQ4H PRN PRN Reason: Wheezing Albuterol/Ipratropium (Duoneb) 3 ml INH RTQ6H [facility] Stop: 12/11/17 07:01 Last Admin: 12/10/17 10:15 Dose: 3 ml Aspirin ([place] Aspirin) 81 mg PO DAILY [facility] Last Admin: 12/10/17 08:57 Dose: Not Given Chlorhexidine Gluconate (Peridex) 15 ml PO BID [facility] Last Admin: 12/10/17 09:03 Dose: 15 ml Enoxaparin Sodium (Lovenox) 40 mg SUBQ DAILY [facility] Last Admin: 12/10/17 10:56 Dose: 40 mg Fentanyl 2,500 mcg/ Sodium (Chloride) 250 mls @ 33.66 mls/hr IV .Q7H26M PETROS; 4.5 MCG/KG/HR PRN Reason: Protocol Last Admin: 12/10/17 09:34 Dose: 4.5 mcg/kg/hr, 33.66 mls/hr Piperacillin Sod/Tazobactam (Sod 4.5 gm/ Sodium Chloride) 100 mls @ 25 mls/hr IV Q8H [facility] Last Admin: 12/10/17 11:57 Dose: 25 mls/hr Vancomycin HCl 1 gm/ Sodium (Chloride) 250 mls @ 166.667 mls/hr IV Q12H [facility] Sodium Chloride (Normal Saline 0.9%) 500 mls @ 10 mls/hr IV .Q48H PRN PRN Reason: Peripheral Line Protocol Last Admin: 12/10/17 10:27 Dose: 10 mls/hr Sodium Chloride (Normal Saline 0.9%) 500 mls @ 999 mls/hr IV ONCE ONE Stop: 12/10/17 12:24 Sodium Bicarbonate 100 meq/ (Dextrose) 1,100 mls @ 100 mls/hr IV .Q11H [facility] Sodium Chloride (Normal Saline 0.9%) 1,000 mls @ 100 mls/hr IV .Q10H [facility] Methylprednisolone (Solu-Medrol (40mg Vial)) 40 mg IVP Q6HR [facility] Last Admin: 12/10/17 11:57 Dose: 40 mg Morphine Sulfate (Morphine) 2 mg IVP Q2H PRN PRN Reason: Pain 8 to 10 Morphine Sulfate (Morphine) 2 mg IVP Q1H PRN PRN Reason: Discomfort Ondansetron HCl (Zofran Inj) 4 mg IVP Q6HR PRN PRN Reason: Nausea / Vomiting Last Admin: 12/10/17 09:20 Dose: 4 mg Pantoprazole Sodium (Protonix) 40 mg IVP QDAC [facility] Last Admin: 12/10/17 06:10 Dose: 40 mg Prochlorperazine Edisylate (Compazine Inj) 10 mg IVP Q6HR PRN PRN Reason: Nausea / Vomiting Saccharomyces Boulardii (Florastor) 250 mg PO BIDWM [facility] Last Admin: 12/10/17 08:57 Dose: Not Given Sodium Chloride (Normal Saline Flush 0.9%) 10 ml IVP 0100,0900,1700 [facility] Last Admin: 12/10/17 09:15 Dose: 20 ml Sodium Chloride (Normal Saline Flush 0.9%) 10 ml IVP PRN PRN PRN Reason: NEEDED PER PROVIDER ORDERS Last Admin: 12/10/17 09:29 Dose: 10 ml Albuterol [Ventolin Hfa] 2 puffs INH Q4H PRN 03/10/13 Multivitamin [Multivitamins] 1 tab PO DAILY 03/10/13 [place]-3 Fatty Acids/Fish Oil [[place] 3 Fish Oil Softgel] 1 each PO DAILY Aspirin Chewable [[place] Aspirin] 81 mg PO DAILY 04/29/13 Albuterol Sulfate 2.5 mg IH .BID-QID PRN 08/22/15 Budesonide [Pulmicort Flexhaler] 2 puffs IH BID 08/22/15 Olodaterol HCl [Striverdi Respimat] 2 puffs IH DAILY 08/22/15 Tiotropium [place] [Spiriva Respimat] 2 puffs IH DAILY 08/22/15 Levalbuterol [Xopenex] 1.25 mg INH QID PRN 11/08/17 Theophylline Anhydrous [Rm-24] 400 mg PO QPM 12/10/17 Zolpidem [Ambien] 10 mg PO HS PRN 12/10/17 Objective - Vital Signs/Intake & Output Reviewed Vital Signs: Yes Vital Signs: Vital Signs Temp Pulse Pulse Resp BP BP Pulse Ox 12/10/17 11:40 104 H 12/10/17 11:00 90 20 86/59 L 95 12/10/17 10:18 92 12/10/17 10:00 90 16 90/60 93 12/10/17 09:00 98 11 L 110/55 L 94 12/10/17 08:17 95 12/10/17 08:00 36.6 C 95 12 105/59 L 97 Intake & Output: Intake & Output 12/07/17 12/08/17 12/09/17 12/10/17 23:59 23:59 23:59 23:59 Intake Total 2071.767 2801.767 Output Total 498 Balance 2071.767 2303.767 - Objective General Appearance: positive: No acute distress, Other (intubated white female looks older than stated age.) Eyes Bilateral: positive: PERRL Neck: positive: No JVD. negative: Stiff neck, Carotid bruit Respiratory: positive: Chest non-tender. negative: Wheezes, Rales, Rhonchi Cardiovascular: positive: Regular rate & rhythm, Systolic murmur. negative: Gallop/S4, Friction rub Abdomen: positive: Non-tender, No organomegaly, Nml bowel sounds, No distention Skin: positive: Warm, Dry Extremities: positive: Full ROM, No pedal edema Neurologic/Psychiatric: positive: CN's nml (2-12), Motor nml Comments/Other: Her ABG's show worsening metabolic acidosis, but oxygen requirement less. - Lab Results Fish Bones: 12/10/17 05:18 12/10/17 05:18 Other Labs: Lab Results x24hrs 12/10/17 12/10/17 12/10/17 Range/Units 11:28 09:53 05:18 WBC (4.8-10.8) x10^3/uL RBC (4.20-5.40) 10^6/uL Hgb (12.0-16.0) g/dL Hct (37.0-47.0) % MCV (81.0-99.0) fL MCH (27.0-31.0) pg MCHC (32.0-36.0) g/dL RDW (12.0-15.0) % Plt Count (130-450) 10^3/uL MPV (7.9-10.8) fL Neut # (1.5-6.6) 10^3/uL Lymph # (1.5-3.5) 10^3/uL [place] # (0.0-1.0) 10^3/uL Eos # (0.0-0.7) 10^3/uL Baso # (0.0-0.1) 10^3/uL Absolute Nucleated RBC x10^3/uL Band Neuts % (Manual) Abnorm Lymph % (Manual) Nucleated RBC % /100WBC Neutrophils # (Manual) Lymphocytes # (Manual) Monocytes # (Manual) Eosinophils # (Manual) Basophils # (Manual) Differential Comment Platelet Estimate (NORMAL) Platelet Morphology (NORMAL) RBC Morph Micro Appear (NORMAL) Bld Gas Analysis Time 0958 Sample Site RIGHT RADIAL ABG pH 7.19 L* (7.35-7.45) ABG pCO2 53 H (34-45) mmHg ABG pO2 90 (80-100) mmHg ABG HCO3 19.9 L (22.0-26.0) mmol/L ABG Total CO2 21.6 (21.0-29.0) MMOL/L ABG O2 Saturation 96 (94-98) % ABG Oximetry Spot Check % ABG Base Excess -8.5 L (-2.0-3.0) mmol/L Dae Test NEGATIVE Respiration Rate 16 b/min O2 Delivery Device VENTILATOR Vent Mode SIMV FiO2 50.00 Tidal Volume 400 mL PEEP 5 cmH2O Pressure Support Vent 10 cmH2O Sodium 141 (135-145) mmol/L Potassium 5.0 (3.5-5.0) mmol/L Chloride 108 (101-111) mmol/L Carbon Dioxide 26 (21-32) mmol/L Anion Gap 7.0 (6-13) BUN 20 (6-20) mg/dL Creatinine 0.6 (0.4-1.0) mg/dL Estimated GFR (MDRD) 100 (>89) Glucose 172 H (70-100) mg/dL Lactic Acid 2.8 H (0.5-2.2) mmol/L Calcium 8.1 L (8.5-10.3) mg/dL Phosphorus 4.1 (2.5-4.6) mg/dL Magnesium 2.3 (1.7-2.8) mg/dL Total Bilirubin 0.4 (0.2-1.0) mg/dL AST 24 (10-42) IU/L ALT 19 (10-60) IU/L Alkaline Phosphatase 53 (42-121) IU/L Troponin I (<0.49) ng/mL Total Protein 5.9 L (6.7-8.2) g/dL Albumin 2.9 L (3.2-5.5) g/dL Globulin 3.0 (2.1-4.2) g/dL Albumin/Globulin Ratio 1.0 (1.0-2.2) Lipase (22-51) U/L Urine Color Urine Clarity (CLEAR) Urine pH (5.0-7.5) PH Ur Specific [place] (1.002-1.030) Urine Protein (NEGATIVE) mg/dL Urine Glucose (UA) (NEGATIVE) mg/dL Urine Ketones (NEGATIVE) mg/dL Urine Occult Blood (NEGATIVE) Urine Nitrite (NEGATIVE) Urine Bilirubin (NEGATIVE) Urine Urobilinogen (NORMAL) E.U./dL Ur Leukocyte Esterase (NEGATIVE) Urine RBC (0-5) /HPF Urine WBC (0-5) /HPF Ur Squamous Epith Cells (<= Few) Amorphous Sediment /LPF Urine Bacteria (None Seen) /HPF Urine Casts /LPF Urine Mucus Urine Culture Comments 12/10/17 12/10/17 12/10/17 Range/Units 05:18 05:18 05:10 WBC 12.1 H (4.8-10.8) x10^3/uL RBC 4.76 (4.20-5.40) 10^6/uL Hgb 12.9 (12.0-16.0) g/dL Hct 40.7 (37.0-47.0) % MCV 85.5 (81.0-99.0) fL MCH 27.0 (27.0-31.0) pg MCHC 31.6 L (32.0-36.0) g/dL RDW 14.7 (12.0-15.0) % Plt Count 305 (130-450) 10^3/uL MPV 7.3 L (7.9-10.8) fL Neut # 11.5 H (1.5-6.6) 10^3/uL Lymph # 0.3 L (1.5-3.5) 10^3/uL [place] # 0.2 (0.0-1.0) 10^3/uL Eos # 0.0 (0.0-0.7) 10^3/uL Baso # 0.0 (0.0-0.1) 10^3/uL Absolute Nucleated RBC 0.00 x10^3/uL Band Neuts % (Manual) Not Reportable Abnorm Lymph % (Manual) Not Reportable Nucleated RBC % 0.0 /100WBC Neutrophils # (Manual) Not Reportable Lymphocytes # (Manual) Not Reportable Monocytes # (Manual) Not Reportable Eosinophils # (Manual) Not Reportable Basophils # (Manual) Not Reportable Differential Comment MANUAL=AUTO DIFF Platelet Estimate NORMAL (130-450,000) (NORMAL) Platelet Morphology 1+ LARGE PLATELETS (NORMAL) RBC Morph Micro Appear NORMAL APPEARANCE (NORMAL) Bld Gas Analysis Time 0515 Sample Site RIGHT RADIAL ABG pH 7.21 L (7.35-7.45) ABG pCO2 56 H (34-45) mmHg ABG pO2 218 H* (80-100) mmHg ABG HCO3 21.9 L (22.0-26.0) mmol/L ABG Total CO2 23.6 (21.0-29.0) MMOL/L ABG O2 Saturation 99 H (94-98) % ABG Oximetry Spot Check 99 % ABG Base Excess -6.5 L (-2.0-3.0) mmol/L Dae Test POSITIVE Respiration Rate 12 b/min O2 Delivery Device VENTILATOR Vent Mode SIMV FiO2 80.00 Tidal Volume 400 mL PEEP 5 cmH2O Pressure Support Vent 10 cmH2O Sodium (135-145) mmol/L Potassium (3.5-5.0) mmol/L Chloride (101-111) mmol/L Carbon Dioxide (21-32) mmol/L Anion Gap (6-13) BUN (6-20) mg/dL Creatinine (0.4-1.0) mg/dL Estimated GFR (MDRD) (>89) Glucose (70-100) mg/dL Lactic Acid (0.5-2.2) mmol/L Calcium (8.5-10.3) mg/dL Phosphorus (2.5-4.6) mg/dL Magnesium (1.7-2.8) mg/dL Total Bilirubin (0.2-1.0) mg/dL AST (10-42) IU/L ALT (10-60) IU/L Alkaline Phosphatase (42-121) IU/L Troponin I 0.11 (<0.49) ng/mL Total Protein (6.7-8.2) g/dL Albumin (3.2-5.5) g/dL Globulin (2.1-4.2) g/dL Albumin/Globulin Ratio (1.0-2.2) Lipase (22-51) U/L Urine Color Urine Clarity (CLEAR) Urine pH (5.0-7.5) PH Ur Specific [place] (1.002-1.030) Urine Protein (NEGATIVE) mg/dL Urine Glucose (UA) (NEGATIVE) mg/dL Urine Ketones (NEGATIVE) mg/dL Urine Occult Blood (NEGATIVE) Urine Nitrite (NEGATIVE) Urine Bilirubin (NEGATIVE) Urine Urobilinogen (NORMAL) E.U./dL Ur Leukocyte Esterase (NEGATIVE) Urine RBC (0-5) /HPF Urine WBC (0-5) /HPF Ur Squamous Epith Cells (<= Few) Amorphous Sediment /LPF Urine Bacteria (None Seen) /HPF Urine Casts /LPF Urine Mucus Urine Culture Comments 12/09/17 12/09/17 12/09/17 Range/Units 22:46 22:31 22:24 WBC (4.8-10.8) x10^3/uL RBC (4.20-5.40) 10^6/uL Hgb (12.0-16.0) g/dL Hct (37.0-47.0) % MCV (81.0-99.0) fL MCH (27.0-31.0) pg MCHC (32.0-36.0) g/dL RDW (12.0-15.0) % Plt Count (130-450) 10^3/uL MPV (7.9-10.8) fL Neut # (1.5-6.6) 10^3/uL Lymph # (1.5-3.5) 10^3/uL [place] # (0.0-1.0) 10^3/uL Eos # (0.0-0.7) 10^3/uL Baso # (0.0-0.1) 10^3/uL Absolute Nucleated RBC x10^3/uL Band Neuts % (Manual) Abnorm Lymph % (Manual) Nucleated RBC % /100WBC Neutrophils # (Manual) Lymphocytes # (Manual) Monocytes # (Manual) Eosinophils # (Manual) Basophils # (Manual) Differential Comment Platelet Estimate (NORMAL) Platelet Morphology (NORMAL) RBC Morph Micro Appear (NORMAL) Bld Gas Analysis Time 2240 Sample Site LEFT RADIAL ABG pH 7.32 L (7.35-7.45) ABG pCO2 51 H (34-45) mmHg ABG pO2 136 H (80-100) mmHg ABG HCO3 25.3 (22.0-26.0) mmol/L ABG Total CO2 26.9 (21.0-29.0) MMOL/L ABG O2 Saturation 98 (94-98) % ABG Oximetry Spot Check 100 % ABG Base Excess -1.4 (-2.0-3.0) mmol/L Dae Test POSITIVE Respiration Rate 8 b/min O2 Delivery Device VENTILATOR Vent Mode SIMV FiO2 100.00 Tidal Volume 400 mL PEEP 18 cmH2O Pressure Support Vent 10 cmH2O Sodium 139 (135-145) mmol/L Potassium 5.3 H (3.5-5.0) mmol/L Chloride 100 L (101-111) mmol/L Carbon Dioxide 29 (21-32) mmol/L Anion Gap 10.0 (6-13) BUN 21 H (6-20) mg/dL Creatinine 0.7 (0.4-1.0) mg/dL Estimated GFR (MDRD) 84 L (>89) Glucose 151 H (70-100) mg/dL Lactic Acid (0.5-2.2) mmol/L Calcium 8.7 (8.5-10.3) mg/dL Phosphorus (2.5-4.6) mg/dL Magnesium (1.7-2.8) mg/dL Total Bilirubin 1.0 (0.2-1.0) mg/dL AST 25 (10-42) IU/L ALT 15 (10-60) IU/L Alkaline Phosphatase 57 (42-121) IU/L Troponin I (<0.49) ng/mL Total Protein 5.6 L (6.7-8.2) g/dL Albumin 2.8 L (3.2-5.5) g/dL Globulin 2.8 (2.1-4.2) g/dL Albumin/Globulin Ratio 1.0 (1.0-2.2) Lipase 15 L (22-51) U/L Urine Color YELLOW Urine Clarity CLEAR (CLEAR) Urine pH 5.5 (5.0-7.5) PH Ur Specific [place] >=1.030 H (1.002-1.030) Urine Protein 30 H (NEGATIVE) mg/dL Urine Glucose (UA) NEGATIVE (NEGATIVE) mg/dL Urine Ketones NEGATIVE (NEGATIVE) mg/dL Urine Occult Blood NEGATIVE (NEGATIVE) Urine Nitrite NEGATIVE (NEGATIVE) Urine Bilirubin NEGATIVE (NEGATIVE) Urine Urobilinogen 0.2 (NORMAL) (NORMAL) E.U./dL Ur Leukocyte Esterase NEGATIVE (NEGATIVE) Urine RBC None Seen (0-5) /HPF Urine WBC 0-3 (0-5) /HPF Ur Squamous Epith Cells RARE Squamous (<= Few) Amorphous Sediment Moderate /LPF Urine Bacteria Rare (None Seen) /HPF Urine Casts 11-25 Hyaline Casts /LPF Urine Mucus Moderate Strands Urine Culture Comments NOT INDICATED Assessment/Plan - Problem List (1) Lactic acid acidosis Impression: she has a metabolic acidosis and her BP is low. On empiric abx for pneumonia. On vent to stabilze her hypoxia and hypercapnea. And worse lactic acid. Will give IVF bolus of NS, start more aggressive IV resuscitaiton with NS and bicarb drip of D5, Check troponin. If no response, add pressor in form of levophed. (2) Acute on chronic respiratory failure with hypoxia and hypercapnia Impression: Patient was recently hospitalized at [facility] in [place] for 1 week requiring intubation for acute respiratory failure secondary to pneumonia and COPD exacerbation. The patient initially was recovering well but had a significant decline over the last week and a half. The patient became increasingly hypoxic, increasingly short of air, with worsening cough and increasing dyspnea with exertion. the patient was in severe respiratory distress 5/14 and required intubation on arrival of EMS. 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 She has very minimal reserve and even any mild respiratory illness will put her into respiratory failure. Patient's respiratory failure is likely combination of COPD exacerbation and likely pneumonia. Although the patient's chest x-ray is not showing any obvious infiltrate she does have a leukocytosis, tachycardia on presentation and likely does have pneumonia. Plan: Continued on ventilator, today is Day #2, and we will wean down vent settings and do CPAP trial once patient is ready. I have increased rate and tidal volume is stable at 400, increased pressure support to 12. Once patient is extubated we will get a palliative care consult as the patient appears to have end-stage COPD and has told her daughter in the past that she has no desire to get a lung transplant. Palliative Care is out of town right now and will be seen when she gets back. Patient will be treated for COPD exacerbation with IV steroids, duo nebs and ventilator Patient will also be treated for healthcare associated pneumonia with broad- spectrum antibiotics, Day #2 We will continue to monitor patient closely in the intensive care unit If patient is not improving or we are unable to get the patient off the ventilator the patient will be transferred to a larger center with pulmonology and an biofuels plant superintendent. While oxygen is better, lactic acid is not. The patient's request is that if we decide to [place] [facility] [place]3) HCAP (healthcare-associated pneumonia) Conclusion/Plan: The patient presented with acute on chronic respiratory failure and required intubation. Although the patient's chest x-ray does not show obvious infiltrate. The patient does present with leukocytosis, tachycardia, hypoxia, hypercapnia and severe respiratory failure. The patient was also recently hospitalized with pneumonia. The patient will be treated for healthcare associated pneumonia and we will reassess with daily chest x-ray, sputum cultures and assessment of her respiratory status. Plan: Patient will be treated with IV vancomycin and Zosyn, today is Day #2, for healthcare associated pneumonia given her recent hospitalization. She has not had sputum collected for culture. Blood cultures not ordered in ER or admission. will order blood cultures now since lactic acid is rising and BP low. If patient's repeat chest x-rays, sputum culture are negative and her respiratory status improves we will consider stopping antibiotics Wean off ventilator (4) COPD exacerbation Conclusion/Plan: The patient has end-stage COPD and is on 4 L of oxygen at home. The patient appears to have severe emphysema and pulmonary fibrosis on her chest x-ray. She was recently hospitalized and intubated for a COPD exacerbation in the setting of pneumonia. She appears to be presenting with similar presentation today. She has been intubated and does have very tight lungs on examination. Plan: Continue to treat with IV Solu-Medrol, duo nebs initially around the clock and then as needed She will be given IV antibiotics for healthcare associated pneumonia,, Day #2. Patient will be continued on the ventilator and we will wean down vent settings Patient will need a palliative care consult once she is extubated and stable. (5) Pulmonary hypertension Conclusion/Plan: Patient has pulmonary hypertension and right-sided heart failure according to her previous echocardiogram from 2013. The patient's PA pressure at that time was 48 mmHg I suspect that it is much worse at this time. The patient's pulmonary hypertension and right-sided heart failure is likely secondary to her severe COPD and emphysema Plan: Echocardiogram today shows less pulm hypertension and preserved LVEF but this is preliminary. Not final report yet. Treat as above for COPD and pneumonia Palliative care consult (6) DVT prophylaxis Conclusion/Plan: Patient will be placed on Lovenox for DVT prophylaxis while she is hospitalized.
[2017-12-10] MEDS: SODIUM BICARBONATE 100 MEQ in DEXTROSE 5% 1,000 ML IV SCH (12:37)
[2017-12-10] MEDS: VANCOMYCIN INJ 1 GM in SODIUM CHLORIDE 0.9% 250 ML IV SCH (13:00)
[2017-12-10] MEDS: SODIUM CHLORIDE 0.9% 1,000 ML IV SCH ×2 (13:06→22:45)
[2017-12-10] MEDS ORDERED: SODIUM CHLORIDE INHALATION 3 ML NEB ONE (13:29)
[2017-12-10 17:06] LABS: ABG BASE EXCESS -0.9 mmol/L (-2.0-3.0); ABG OXYGEN SATURATION 96 % (94-98); ABG PCO2 59 mmHg (34-45); ABG PH 7.28 (7.35-7.45); ABG PO2 84 mmHg (80-100); ABG TCO2 28.8 MMOL/L (21.0-29.0)
[2017-12-10 17:07] LABS: ALLEN TEST POSITIVE
[2017-12-11] MEDS: SODIUM BICARBONATE 100 MEQ in DEXTROSE 5% 1,000 ML IV SCH (00:22)
[2017-12-11] MEDS: methylPREDNISolone SUCCINATE 40 MG/ML VIAL IVP SCH ×5 (00:23→23:17)
[2017-12-11] MEDS: VANCOMYCIN INJ 1 GM in SODIUM CHLORIDE 0.9% 250 ML IV SCH ×2 (00:41→13:16)
[2017-12-11] MEDS: SODIUM CHLORIDE FLUSH 0.9% 10 ML SYRINGE IVP SCH ×6 (00:41→23:19)
[2017-12-11] MEDS: fentaNYL 2,500 MCG in SODIUM CHLORIDE 0.9% 200 ML IV SCH (00:51)
[2017-12-11] MEDS: IPRATROPIUM/ALBUTEROL 3 ML NEB INH SCH ×2 (01:08→09:51)
--- NOTE | 2017-12-11 03:37 | PROVIDER PROGRESS NOTE ---
Refrigerator Repair Technician Note - Refrigerator Repair Technician Note Refrigerator Repair Technician Note: I was called to the patient's bedside at around 2:30 AM on 12/11/2017. The patient had pulled out her IV and was pulling at her ET tube. The patient had to be put in restraints and we verbally talked the patient down. The patient however continued to bite down on her ET tube and was insistent that we take it out. It appeared that the tube had already come out above her vocal cords as she was able to make vocal sounds. Despite this the patient's saturations appear to be stable and she seemed to be breathing okay on her own. At this point we decided to extubate the patient. The patient was extubated onto 4-1/2 L of oxygen. The patient's oxygen was increased to 7 L as she became slightly hypoxic. After increasing the oxygen the patient appeared to be stable. The patient's fentanyl drip was stopped. Also her bicarb drip was stopped. She will be continued on normal saline and we restarted her oral medications. She underwent a bedside swallow and passed. She appears comfortable.
[2017-12-11] MEDS: ZOLPIDEM 5 MG TABLET PO PRN ×2 (03:51→23:17)
[2017-12-11] MEDS: PIPERACILLIN/TAZOBACTAM 4.5 GM in SODIUM CHLORIDE 0.9% MINIBAG 100 ML IV SCH ×3 (04:24→19:54)
[2017-12-11 05:18] LABS: HGB - HEMOGLOBIN 11.6 g/dL (12.0-16.0); RED CELL DISTRIBUTION WIDTH 14.5 % (12.0-15.0)
[2017-12-11 05:25] LABS: ALBUMIN 2.8 g/dL (3.2-5.5); BILIRUBIN,TOTAL 0.4 mg/dL (0.2-1.0); CALCIUM 7.9 mg/dL (8.5-10.3); CREATININE 0.5 mg/dL (0.4-1.0); MAGNESIUM 2.2 mg/dL (1.7-2.8); PHOSPHORUS 2.1 mg/dL (2.5-4.6); TOTAL PROTEIN 5.8 g/dL (6.7-8.2)
[2017-12-11 05:26] LABS: BASOPHILS % (AUTO) 0.3 %; LYMPHOCYTES # (AUTO) 0.6 10^3/uL (1.5-3.5); LYMPHOCYTES % (AUTO) 4.5 %; MEAN CORPUSCULAR HEMOGLOBIN 27.2 pg (27.0-31.0); MEAN CORPUSCULAR HGB CONC 31.8 g/dL (32.0-36.0); MEAN CORPUSCULAR VOLUME 85.6 fL (81.0-99.0); MEAN PLATELET VOLUME 8.1 fL (7.9-10.8); MONOCYTES # (AUTO) 0.8 10^3/uL (0.0-1.0); MONOCYTES % (AUTO) 6.5 %; NEUTROPHILS # (AUTO) 11.2 10^3/uL (1.5-6.6); NEUTROPHILS % (AUTO) 88.7 %; PLT - PLATELET COUNT 333 10^3/uL (130-450); RED BLOOD COUNT 4.27 10^6/uL (4.20-5.40); WHITE BLOOD COUNT 12.6 x10^3/uL (4.8-10.8)
[2017-12-11 05:26] LABS: ALBUMIN/GLOBULIN RATIO 0.9 (1.0-2.2)
[2017-12-11] MEDS ORDERED: TERBUTALINE 1 MG/ML VIAL SUBQ ONE (06:06)
[2017-12-11] MEDS: PANTOPRAZOLE 40 MG VIAL IVP SCH (06:44)
[2017-12-11] MEDS: SODIUM CHLORIDE FLUSH 0.9% 10 ML SYRINGE IVP PRN ×2 (06:45→13:51)
[2017-12-11] MEDS ORDERED: SODIUM CHLORIDE INHALATION 3 ML NEB ONE (07:34)
[2017-12-11] MEDS: NEUTRA-PHOS 250 MG TABLET PO SCH ×2 (07:53→10:07)
[2017-12-11] MEDS: SACCHAROMYCES BOULARDII 250 MG CAPSULE PO SCH ×2 (07:53→18:13)
[2017-12-11] MEDS: ASPIRIN CHEW 81 MG TABLET PO SCH (07:54)
[2017-12-11] MEDS: SODIUM CHLORIDE 0.9% 1,000 ML IV SCH ×2 (08:45→22:17)
[2017-12-11] MEDS: ENOXAPARIN 40 MG/0.4 ML SYRINGE SUBQ SCH (09:05)
[2017-12-11 11:30] LABS: ABG BASE EXCESS -0.3 mmol/L (-2.0-3.0); ABG HCO3 27.3 mmol/L (22.0-26.0); ABG OXYGEN SATURATION 95 % (94-98); ABG PCO2 58 mmHg (34-45); ABG PH 7.29 (7.35-7.45); ABG PO2 75 mmHg (80-100); ALLEN TEST NEGATIVE
[2017-12-11] MEDS: LORazepam 2 MG/ML VIAL IVP PRN ×3 (11:57→19:55)
--- NOTE | 2017-12-11 12:44 | PROVIDER PROGRESS NOTE ---
Subjective - Prog Note Date Prog Note Date: 12/11/17 Prog Note Time: 12:29 - Subjective Subjective: she extubated herself last night. we struggled with agitation yesterday and daughter refused to let us use propofol or precedex. we had several episodes of escalating gesticulation on patients part, anger at daytime RN, and pulling at ET tube. She would then use facial expressions to demonstate anger with wide eyes, use of hands to push us away. she tried to use board to write with but became more and more frustrated. Then last night pulled out ET tube and used her teeth to bite down on it. She also became angry at Respiratory therapist and wanted them out of the room. She demanded another RT and this am states she has the right to refuse a treatment or a person in her room. She called the therapist a "bitch". I tried to carefully explain that she has every right to refuse treatment but in a small facility such as ours, there may be only one person who is working that particular position, and she can't expect to have only those people she wants in the room. For instance, if her current RN was the only one in ICU, she can't throw out this RN and expect a "new" RN when there are no ICU nurses elsewhere. She then demanded I leave the room because this was making her angry and she didn't want to deal with speaking to me. During this morning and into the early afternoon, she is increasing her rate of respiration. Repeat ABG's show a slowly rising pCO2 and slight drop in pH. I fear having to intubate her. She requested ativan and we have given it to her. The SALES DEVELOPMENT MANAGER has spent a great deal fo time with her at the bedside. Being supportive and slowly teasing out what the patient wants. I myself spent 15 minutes just standing there listening to one of the talks. The patient has relinquished power of decision making to her daughter. "it's what she wants" . But the RN reminded her that she is still in command. That she can still make decisions and she can tell us and her daughter what she wants. All morning long she has vacillated between wanting to to be intubated and to receive CPR or wanting to be comfortable and just give her morphine. She readily admits she is tired of all of this. This is her 4th time of intubation and being in an ICU with this end stage disease. At this moment in time, she wants us NOT to intubate. Just ativan, morphine, nebs. She refuses BiPAP because of claustrophia. Continues to refuse sedation in case of reintubation. Current Medications - Current Medications Current Medications: Active Medications Albuterol/Ipratropium (Duoneb) 3 ml INH RTQ4H PRN PRN Reason: Wheezing Aspirin ([place] Aspirin) 81 mg PO DAILY [facility] Last Admin: 12/11/17 07:54 Dose: 81 mg Enoxaparin Sodium (Lovenox) 40 mg SUBQ DAILY [facility] Last Admin: 12/11/17 09:05 Dose: 40 mg Piperacillin Sod/Tazobactam (Sod 4.5 gm/ Sodium Chloride) 100 mls @ 25 mls/hr IV Q8H [facility] Last Admin: 12/11/17 11:57 Dose: 25 mls/hr Vancomycin HCl 1 gm/ Sodium (Chloride) 250 mls @ 166.667 mls/hr IV Q12H [facility] Last Infusion: 12/11/17 02:46 Dose: Infused Sodium Chloride (Normal Saline 0.9%) 500 mls @ 10 mls/hr IV .Q48H PRN PRN Reason: Peripheral Line Protocol Last Infusion: 12/10/17 12:23 Dose: Infused Sodium Chloride (Normal Saline 0.9%) 1,000 mls @ 100 mls/hr IV .Q10H [facility] Last Admin: 12/11/17 08:45 Dose: 100 mls/hr Lorazepam (Ativan Inj (Vial)) 0.5 mg IVP Q2H PRN PRN Reason: Anxiety Last Admin: 12/11/17 11:57 Dose: 0.5 mg Methylprednisolone (Solu-Medrol (40mg Vial)) 40 mg IVP Q6HR [facility] Last Admin: 12/11/17 11:56 Dose: 40 mg Morphine Sulfate (Morphine) 2 mg IVP Q2H PRN PRN Reason: Pain 8 to 10 Ondansetron HCl (Zofran Inj) 4 mg IVP Q6HR PRN PRN Reason: Nausea / Vomiting Last Admin: 12/10/17 09:20 Dose: 4 mg Pantoprazole Sodium (Protonix) 40 mg IVP QDAC [facility] Last Admin: 12/11/17 06:44 Dose: 40 mg Theophylline 400mg (Cap) 1 each PO QPM [facility] Prochlorperazine Edisylate (Compazine Inj) 10 mg IVP Q6HR PRN PRN Reason: Nausea / Vomiting Saccharomyces Boulardii (Florastor) 250 mg PO BIDWM [facility] Last Admin: 12/11/17 07:53 Dose: 250 mg Sodium Chloride (Normal Saline Flush 0.9%) 10 ml IVP 0100,0900,1700 [facility] Last Admin: 12/11/17 12:03 Dose: 10 ml Sodium Chloride (Normal Saline Flush 0.9%) 10 ml IVP PRN PRN PRN Reason: NEEDED PER PROVIDER ORDERS Last Admin: 12/11/17 06:45 Dose: 10 ml Zolpidem Tartrate (Ambien) 10 mg PO HS PRN PRN Reason: Insomnia Last Admin: 12/11/17 03:51 Dose: 10 mg Albuterol [Ventolin Hfa] 2 puffs INH Q4H PRN 03/10/13 Multivitamin [Multivitamins] 1 tab PO DAILY 03/10/13 [place]-3 Fatty Acids/Fish Oil [[place] 3 Fish Oil Softgel] 1 each PO DAILY Aspirin Chewable [[place] Luisito Aspirin] 81 mg PO DAILY 04/29/13 Albuterol Sulfate 2.5 mg IH .BID-QID PRN 08/22/15 Budesonide [Pulmicort Flexhaler] 2 puffs IH BID 08/22/15 Olodaterol HCl [Striverdi Respimat] 2 puffs IH DAILY 08/22/15 Tiotropium [place] [Spiriva Respimat] 2 puffs IH DAILY 08/22/15 Levalbuterol [Xopenex] 1.25 mg INH QID PRN 11/08/17 Theophylline Anhydrous [Rm-24] 400 mg PO QPM 12/10/17 Zolpidem [Ambien] 10 mg PO HS PRN 12/10/17 Objective - Vital Signs/Intake & Output Reviewed Vital Signs: Yes Vital Signs: Vital Signs Temp Pulse Pulse Resp BP Pulse Ox 12/11/17 11:00 111 H 19 109/70 93 12/11/17 10:00 106 H 20 110/72 93 12/11/17 09:53 110 H 19 12/11/17 09:00 37.3 C 103 H 19 114/75 Intake & Output: Intake & Output 12/08/17 12/09/17 12/10/17 12/11/17 23:59 23:59 23:59 23:59 Intake Total 2071.767 6061.989 3054.445 Output Total 797 445 Balance 2071.767 5264.989 2609.445 - Objective General Appearance: positive: Moderate distress, Other (sleepy, breathing fast shallow breaths with high flow O2 on board.) Eyes Bilateral: positive: PERRL ENT: positive: Dry mucous membranes Neck: positive: No JVD. negative: Stiff neck, Carotid bruit Respiratory: positive: Chest non-tender, Wheezes, Rhonchi, Other (very quiet lungs and wheezing is low and prolonged with each breath. also has stridor in mid lungs not at neck or throat). negative: Rales Cardiovascular: positive: Regular rate & rhythm, Tachycardia, Systolic murmur, Other (right ventricular lift evident). negative: Gallop/S4, Friction rub Abdomen: positive: Non-tender, No organomegaly, Nml bowel sounds, No distention Extremities: positive: Full ROM, Pedal edema (developing not only in legs but in arms and sacrum from fluid resuscitation) Neurologic/Psychiatric: positive: Oriented x3, CN's nml (2-12), Motor nml - Lab Results Fish Bones: 12/11/17 04:39 12/11/17 04:40 Other Labs: Lab Results x24hrs 12/11/17 12/11/17 12/11/17 Range/Units 11:17 04:40 04:39 WBC 12.6 H (4.8-10.8) x10^3/uL RBC 4.27 (4.20-5.40) 10^6/uL Hgb 11.6 L (12.0-16.0) g/dL Hct 36.5 L (37.0-47.0) % MCV 85.6 (81.0-99.0) fL MCH 27.2 (27.0-31.0) pg MCHC 31.8 L (32.0-36.0) g/dL RDW 14.5 (12.0-15.0) % Plt Count 333 (130-450) 10^3/uL MPV 8.1 (7.9-10.8) fL Neut # 11.2 H (1.5-6.6) 10^3/uL Lymph # 0.6 L (1.5-3.5) 10^3/uL [place] # 0.8 (0.0-1.0) 10^3/uL Eos # 0.0 (0.0-0.7) 10^3/uL Baso # 0.0 (0.0-0.1) 10^3/uL Absolute Nucleated RBC 0.00 x10^3/uL Nucleated RBC % 0.0 /100WBC Bld Gas Analysis Time 1128 Sample Site LEFT RADIAL ABG pH 7.29 L (7.35-7.45) ABG pCO2 58 H (34-45) mmHg ABG pO2 75 L (80-100) mmHg ABG HCO3 27.3 H (22.0-26.0) mmol/L ABG Total CO2 29.0 (21.0-29.0) MMOL/L ABG O2 Saturation 95 (94-98) % ABG Base Excess -0.3 (-2.0-3.0) mmol/L Dae Test NEGATIVE Respiration Rate b/min O2 Delivery Device OXYMASK O2 Liters/Min 5.00 LPM Vent Mode FiO2 Tidal Volume mL PEEP cmH2O Pressure Support Vent cmH2O Sodium 140 (135-145) mmol/L Potassium 4.1 (3.5-5.0) mmol/L Chloride 105 (101-111) mmol/L Carbon Dioxide 26 (21-32) mmol/L Anion Gap 9.0 (6-13) BUN 18 (6-20) mg/dL Creatinine 0.5 (0.4-1.0) mg/dL Estimated GFR (MDRD) 123 (>89) Glucose 146 H (70-100) mg/dL Lactic Acid (0.5-2.2) mmol/L Calcium 7.9 L (8.5-10.3) mg/dL Phosphorus 2.1 L (2.5-4.6) mg/dL Magnesium 2.2 (1.7-2.8) mg/dL Total Bilirubin 0.4 (0.2-1.0) mg/dL AST 21 (10-42) IU/L ALT 16 (10-60) IU/L Alkaline Phosphatase 46 (42-121) IU/L Troponin I (<0.49) ng/mL Total Protein 5.8 L (6.7-8.2) g/dL Albumin 2.8 L (3.2-5.5) g/dL Globulin 3.0 (2.1-4.2) g/dL Albumin/Globulin Ratio 0.9 L (1.0-2.2) 12/10/17 12/10/17 12/10/17 Range/Units 17:12 17:12 16:58 WBC (4.8-10.8) x10^3/uL RBC (4.20-5.40) 10^6/uL Hgb (12.0-16.0) g/dL Hct (37.0-47.0) % MCV (81.0-99.0) fL MCH (27.0-31.0) pg MCHC (32.0-36.0) g/dL RDW (12.0-15.0) % Plt Count (130-450) 10^3/uL MPV (7.9-10.8) fL Neut # (1.5-6.6) 10^3/uL Lymph # (1.5-3.5) 10^3/uL [place] # (0.0-1.0) 10^3/uL Eos # (0.0-0.7) 10^3/uL Baso # (0.0-0.1) 10^3/uL Absolute Nucleated RBC x10^3/uL Nucleated RBC % /100WBC Bld Gas Analysis Time 1702 Sample Site RIGHT RADIAL ABG pH 7.28 L (7.35-7.45) ABG pCO2 59 H (34-45) mmHg ABG pO2 84 (80-100) mmHg ABG HCO3 27.0 H (22.0-26.0) mmol/L ABG Total CO2 28.8 (21.0-29.0) MMOL/L ABG O2 Saturation 96 (94-98) % ABG Base Excess -0.9 (-2.0-3.0) mmol/L Dae Test POSITIVE Respiration Rate 20 b/min O2 Delivery Device VENTILATOR O2 Liters/Min LPM Vent Mode SIMV FiO2 50.00 Tidal Volume 400 mL PEEP 5 cmH2O Pressure Support Vent 12 cmH2O Sodium (135-145) mmol/L Potassium (3.5-5.0) mmol/L Chloride (101-111) mmol/L Carbon Dioxide (21-32) mmol/L Anion Gap (6-13) BUN (6-20) mg/dL Creatinine (0.4-1.0) mg/dL Estimated GFR (MDRD) (>89) Glucose (70-100) mg/dL Lactic Acid 1.8 (0.5-2.2) mmol/L Calcium (8.5-10.3) mg/dL Phosphorus (2.5-4.6) mg/dL Magnesium (1.7-2.8) mg/dL Total Bilirubin (0.2-1.0) mg/dL AST (10-42) IU/L ALT (10-60) IU/L Alkaline Phosphatase (42-121) IU/L Troponin I 0.10 (<0.49) ng/mL Total Protein (6.7-8.2) g/dL Albumin (3.2-5.5) g/dL Globulin (2.1-4.2) g/dL Albumin/Globulin Ratio (1.0-2.2) / Range/Units 10:53 WBC (4.8-10.8) x10^3/uL RBC (4.20-5.40) 10^6/uL Hgb (12.0-16.0) g/dL Hct (37.0-47.0) % MCV (81.0-99.0) fL MCH (27.0-31.0) pg MCHC (32.0-36.0) g/dL RDW (12.0-15.0) % Plt Count (130-450) 10^3/uL MPV (7.9-10.8) fL Neut # (1.5-6.6) 10^3/uL Lymph # (1.5-3.5) 10^3/uL [place] # (0.0-1.0) 10^3/uL Eos # (0.0-0.7) 10^3/uL Baso # (0.0-0.1) 10^3/uL Absolute Nucleated RBC x10^3/uL Nucleated RBC % /100WBC Bld Gas Analysis Time Sample Site ABG pH (7.35-7.45) ABG pCO2 (34-45) mmHg ABG pO2 (80-100) mmHg ABG HCO3 (22.0-26.0) mmol/L ABG Total CO2 (21.0-29.0) MMOL/L ABG O2 Saturation (94-98) % ABG Base Excess (-2.0-3.0) mmol/L Dae Test Respiration Rate b/min O2 Delivery Device O2 Liters/Min LPM Vent Mode FiO2 Tidal Volume mL PEEP cmH2O Pressure Support Vent cmH2O Sodium (135-145) mmol/L Potassium (3.5-5.0) mmol/L Chloride (101-111) mmol/L Carbon Dioxide (21-32) mmol/L Anion Gap (6-13) BUN (6-20) mg/dL Creatinine (0.4-1.0) mg/dL Estimated GFR (MDRD) (>89) Glucose (70-100) mg/dL Lactic Acid (0.5-2.2) mmol/L Calcium (8.5-10.3) mg/dL Phosphorus (2.5-4.6) mg/dL Magnesium (1.7-2.8) mg/dL Total Bilirubin (0.2-1.0) mg/dL AST (10-42) IU/L ALT (10-60) IU/L Alkaline Phosphatase (42-121) IU/L Troponin I 0.10 (<0.49) ng/mL Total Protein (6.7-8.2) g/dL Albumin (3.2-5.5) g/dL Globulin (2.1-4.2) g/dL Albumin/Globulin Ratio (1.0-2.2) Assessment/Plan - Problem List (1) Lactic acid acidosis Impression: yesterday, she has rising lactic acid level in spite of adequate ventilation, abx. I aggressively gave fluids but did not put her on levophed. She responded with a lower lactic acid. already on abx. This am lactic acid not ordered. I will order for the afternoon. (2) Acute on chronic respiratory failure with hypoxia and hypercapnia Impression: (2) Acute on chronic respiratory failure with hypoxia and hypercapnia Impression: Patient was recently hospitalized at [facility] in [place] for 1 week requiring intubation for acute respiratory failure secondary to pneumonia and COPD exacerbation. The patient initially was recovering well but had a significant decline over the last week and a half. The patient became increasingly hypoxic, increasingly short of air, with worsening cough and increasing dyspnea with exertion. the patient was in severe respiratory distress 12/09 and required intubation on arrival of EMS. 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 She has very minimal reserve and even any mild respiratory illness will put her into respiratory failure. Patient's respiratory failure is likely combination of COPD exacerbation and likely pneumonia. Although the patient's chest x-ray is not showing any obvious infiltrate she does have a leukocytosis, tachycardia on presentation and likely does have pneumonia. was on ventilator on admit and into next day, Day #2, and she improved. But she then extubated herself and now is deteriorating again. While we have ordered palliative care consult, the IV THERAPY NURSE is on vacation. Continues to be treated for COPD exacerbation with IV steroids, duo nebs and high flow O2 but she refuses BiPAP. Patient will also be treated for healthcare associated pneumonia with broad- spectrum antibiotics, Day #3 We will continue to monitor patient closely in the intensive care unit and I will continue to listen to her conversations with the RN so as to identify what her wishes are. She is not sure if she wants transfer. She is not sure she wants re-intubation. We are waiting for her daughter to arrive again so we can have this conversation with her as well. (3) HCAP (healthcare-associated pneumonia) Conclusion/Plan: The patient presented with acute on chronic respiratory failure and required intubation. Although the patient's chest x-ray does not show obvious infiltrate. The patient does present with leukocytosis, tachycardia, hypoxia, hypercapnia and severe respiratory failure. The patient was also recently hospitalized with pneumonia. The patient will be treated for healthcare associated pneumonia and we will reassess with daily chest x-ray, sputum cultures and assessment of her respiratory status. Plan: Patient will be treated with IV vancomycin and Zosyn, today is Day #3, for healthcare associated pneumonia given her recent hospitalization. She has not had sputum collected for culture. Blood cultures not ordered in ER or admission. will order blood cultures now since lactic acid is rising and BP low. If patient's repeat chest x-rays, sputum culture are negative and her respiratory status improves we will consider stopping antibiotics (4) COPD exacerbation Conclusion/Plan: The patient has end-stage COPD and is on 4 L of oxygen at home. The patient appears to have severe emphysema and pulmonary fibrosis on her chest x-ray. She was recently hospitalized and intubated for a COPD exacerbation in the setting of pneumonia. She appears to be presenting with similar presentation today. She has been intubated and does have very tight lungs on examination. Plan: Continue to treat with IV Solu-Medrol, duo nebs initially around the clock and then as needed She will be given IV antibiotics for healthcare associated pneumonia,, Day #3. Patient will need a palliative care consult once she is extubated and stable. (5) Pulmonary hypertension Conclusion/Plan: Patient has pulmonary hypertension and right-sided heart failure according to her previous echocardiogram from 2013. The patient's PA pressure at that time was 48 mmHg I suspect that it is much worse at this time. The patient's pulmonary hypertension and right-sided heart failure is likely secondary to her severe COPD and emphysema. today's exam shows that her right sided failure is worse with the fluids we gave her for hypotension yesterday. We will have to balance need for BP support vs. diuresis. Plan: Echocardiogram final report from yesterday reviewed. Not able to assess RVSP. LVEF preserved. No significant valvular heart disease.
[2017-12-11] MEDS: MORPHINE 2 MG/ML SYRINGE IVP PRN ×3 (13:49→23:17)
[2017-12-11] MEDS: IPRATROPIUM/ALBUTEROL 3 ML NEB INH PRN (15:19)
--- NOTE | 2017-12-11 18:00 | ADVANCE CARE PLANNING NOTE ---
Advance Care Planning - Date/Time Date: 12/11/17 Time: 17:56 - Purpose of encounter Text: establish goals of our care when patient has end stage COPD and refuses standard care for intubation. - Parties in attendance Parties in attendance: RESIDENTIAL DIRECTOR, hospitalist and patient. - Decisional capacity Decisional capacity of: patient is at times limited by fatigue and sob. but she is oriented. very aware of what's happening to her - Subjective/Patient's story Subjective/Patient's story: She started developing COPD symptoms approximately 10 years ago. Between then and now it has been a continual downhill slide. She has been an independent lady who has raised children. 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 She regards herself as the matriarch of the family. It is been very hard for her to deteriorate and rely on her children. Right now she lives with a daughter, granddaughters and one house. She tells me that she has been intubated 4 times for COPD. Each time it gets worse and worse. She was just intubated again this admission for us and extubated herself last night. Initially she wanted to be a full code. As the day has gone on she has expressed her fatigue. That she is "tired of being tired". That her decision to want to be full resuscitation has been on the basis of what her daughter wanted. At this time she really feels like she has no quality of life. She is basically housebound. After her last discharge for her third intubation from [facility], she never really recovered. She is on 4-1/2 L of oxygen at home. Can barely make it out of the bed and any given time to do simple things such as going to the bathroom or getting dressed. - Objective/Medical story Objective/Medical Story: Patient is a 67-year-old female with a past medical history significant for end- stage COPD on 4 L of home oxygen, pulmonary fibrosis, pulmonary hypertension, cor pulmonale, claustrophobia and anxiety who presented to the emergency department with chief complaint of shortness of breath. The patient was recently admitted to [facility] in [facility] on 11/08/2017 for acute respiratory failure with hypoxia and hypercapnia. At that time the patient was found to have pneumonia and a COPD exacerbation. The patient required intubation for 2-3 days and had a prolonged hospitalization over 1 week. According to the patient's daughter the patient returned home with steroids and was continued on her breathing treatments. The patient's daughter states the patient was initially improving and appeared to be getting better. She states the patient was still limited with her exertion. But she states that she was able to walk 5-10 feet without terrible difficulties. The patient however has declined significantly over the last week to 10 days. The patient' s daughter states that the patient had increasing shortness of air over the last 4-5 days. She states that over the last 4 days her mother has been basically bedbound. She states that just sitting up in bed makes her very short of breath and drops her oxygen saturation. She states that her oxygen saturation drops to the low 80s with just sitting up in bed. The patient has also been having a cough. The patient's daughter states that the patient's cough has been getting worse over the last couple of days and she has had increasing hemoptysis. The patient's daughter states that the hemoptysis is been there since her hospitalization at [facility]. She states that while the patient was at [facility] she self extubated and caused some trauma in her airways and has been having hemoptysis since. The patient has not had any fevers or chills, she denied any chest pain according to the patient's daughter. The patient's daughter states that the patient has not had any changes in her appetite, recent unintentional weight loss, abdominal pain, nausea, vomiting, diarrhea, constipation, or any focal neurologic deficits. The patient's oxygen saturations were as low as 71% today when she sat up in bed and that was on 4-1/2 L of oxygen. She had significant difficulties recovering and was having severe shortness of breath and that is the point at which the patient's daughter decided to call 911. According to the patient's daughter the patient has not been having any headaches, blurred vision, runny nose, sore throat, nasal congestion, orthopnea, PND, increased lower extremity swelling, joint aches, muscle aches, joint swelling, back pain, neck stiffness, night sweats or weight loss. When paramedics arrived at the patient's home the patient was found to be in respiratory distress. She was hypoxic and using accessory muscles of breathing. The paramedics attempted to take her down a flight of stairs and the patient was so severely short of breath that she asked to be intubated. The paramedics found that the patient was declining rapidly and decided to intubate her on scene. The patient was brought to the emergency department on a ventilator. On presentation to the emergency department the patient was afebrile she was tachycardic with a heart rate in the 140s and slightly tachypneic. She was otherwise saturating well on the ventilator at 100% FiO2. The patient underwent routine lab work which showed a leukocytosis of 13.4 and a potassium of 5.3 but was otherwise unremarkable. The patient's troponin was less than 0.04 and BNP was just 147. Patient's urine showed no signs of infection. The patient did undergo a blood gas after she had been on the ventilator for some time. The patient's blood gas did show slight acidosis with hypercapnia and hypoxia. The patient also underwent a chest x-ray which revealed severe chronic lung disease similar to her prior chest x-rays with no obvious new consolidation. However given the severity of the patient's presentation and her recent hospitalization with pneumonia and elevated white blood cell count it was decided that the patient would be treated for pneumonia. The patient was admitted to the intensive care unit for acute respiratory failure with hypoxia and hypercapnia. She has since extubated herself. She has been very angry nursing staff, respiratory therapy. Although she refused sedation, and her daughter refused sedation for her while she was intubated, the entire experience was quite traumatizing for her. She is refusing BiPAP. She only wants high flow oxygen at this time. As the day has progressed she is gotten increasingly wet lung sounds. Fast shallow respiration with increasing rhonchi. Subtle increase in PCO2 and subtle decrease in pH. - Goals of Care Goals of care determinations: After numerous conversations between me, nurse, and the patient (without family at bedside) the patient has decided that she really does not want to be intubated again. Family is at the bedside. They are in agreement in supporting her decision. - Plan Plan: Continue nebulizer treatments, IV steroids, IV antibiotics, oxygen. Patient declines BiPAP. No intubation. The possibility that she may pass away has been presented to her. She says that she is okay with that. - Code Status Code Status: Do Not Attempt Resuscitation - Time Spent on Advance Care Planning Time spent on advance care plannin minutes
[2017-12-11] MEDS ORDERED: THEOPHYLLINE ANHYDROUS 400 MG PO SCH (21:00)
[2017-12-11] MEDS ORDERED: THEOPHYLLINE ER 200 MG TABLET PO SCH (21:00)
[2017-12-11] MEDS: THEOPHYLLINE 400 MG PO SCH (22:17)
[2017-12-12] MEDS: VANCOMYCIN INJ 1 GM in SODIUM CHLORIDE 0.9% 250 ML IV SCH ×2 (00:35→12:55)
[2017-12-12 00:51] LABS: VANCOMYCIN,TROUGH 12.7 ug/mL (5.0-15.0)
[2017-12-12] MEDS: MORPHINE 2 MG/ML SYRINGE IVP PRN ×7 (03:55→21:47)
[2017-12-12] MEDS: IPRATROPIUM/ALBUTEROL 3 ML NEB INH PRN ×2 (04:07→08:27)
[2017-12-12] MEDS: PIPERACILLIN/TAZOBACTAM 4.5 GM in SODIUM CHLORIDE 0.9% MINIBAG 100 ML IV SCH ×3 (04:14→20:36)
[2017-12-12] MEDS: LORazepam 2 MG/ML VIAL IVP PRN ×4 (04:14→21:48)
[2017-12-12] MEDS ORDERED: FUROSEMIDE 40 MG/4 ML VIAL IVP STA (04:15)
[2017-12-12] MEDS ORDERED: FUROSEMIDE 40 MG/4 ML VIAL ONE (04:25)
[2017-12-12 04:53] LABS: EOSINOPHILS % (AUTO) 0.1 %; MEAN CORPUSCULAR HEMOGLOBIN 27.5 pg (27.0-31.0); MEAN CORPUSCULAR HGB CONC 32.6 g/dL (32.0-36.0); MEAN CORPUSCULAR VOLUME 84.4 fL (81.0-99.0); PLT - PLATELET COUNT 357 10^3/uL (130-450)
[2017-12-12 05:00] LABS: BASOPHILS % (AUTO) 0.7 %; HGB - HEMOGLOBIN 11.5 g/dL (12.0-16.0); LYMPHOCYTES % (AUTO) 7.4 %; MEAN PLATELET VOLUME 7.8 fL (7.9-10.8); MONOCYTES % (AUTO) 4.1 %; NEUTROPHILS % (AUTO) 87.7 %; RED BLOOD COUNT 4.19 10^6/uL (4.20-5.40); RED CELL DISTRIBUTION WIDTH 14.5 % (12.0-15.0); WHITE BLOOD COUNT 9.5 x10^3/uL (4.8-10.8)
[2017-12-12 05:05] LABS: ALBUMIN 2.9 g/dL (3.2-5.5); ALBUMIN/GLOBULIN RATIO 0.9 (1.0-2.2); BILIRUBIN,TOTAL 0.5 mg/dL (0.2-1.0); CALCIUM 8.2 mg/dL (8.5-10.3); CREATININE 0.4 mg/dL (0.4-1.0); MAGNESIUM 2.3 mg/dL (1.7-2.8); PHOSPHORUS 2.6 mg/dL (2.5-4.6)
[2017-12-12 05:10] LABS: ABNORMAL LYMPHS % (MANUAL) 0 %
--- NOTE | 2017-12-12 05:22 | XRAY Preliminary Report ---
Exam: XR CHEST 1 VIEW X-RAY IMPRESSION: 1. Increased opacification at the left base. Elsewhere bilateral pulmonary opacities are unchanged. 2. Small left pleural effusion. [facility] SITE ID: [id number]
--- NOTE | 2017-12-12 05:22 | XRAY Report ---
EXAM: CHEST RADIOGRAPHY EXAM DATE: 12/12/2017 04:38 AM. CLINICAL HISTORY: Worsening dyspnea. COMPARISON: 12/09/2017. TECHNIQUE: 1 view. FINDINGS: Lungs/Pleura: Mildly increased opacity at the left base. Elsewhere, bilateral pulmonary opacities are similar compared with the prior exam. Small left pleural effusion. No pneumothorax. Mediastinum: Heart size normal to upper normal. Aortic atherosclerosis. Other: Endotracheal tube removed. IMPRESSION: 1. Increased opacification at the left base. Elsewhere bilateral pulmonary opacities are unchanged. 2. Small left pleural effusion. [facility] Referring Provider Line: [phone] SITE ID: [id number]
[2017-12-12 05:36] LABS: BAND NEUTROPHILS % (MANUAL) 7 %; DIFFERENTIAL COMMENT MANUAL DIFFERENTIAL; LYMPHOCYTES # (MANUAL) 0.6 10^3/uL (1.5-3.5); LYMPHOCYTES % (MANUAL) 6 %; MONOCYTES # (MANUAL) 0.2 10^3/uL (0.0-1.0); NEUTROPHILS # (MANUAL) 8.7 10^3/uL (1.5-6.6); NEUTROPHILS % (MANUAL) 85 %; PLATELET ESTIMATE, MANUAL NORMAL (130-450,000) (NORMAL); RBC MORPHOLOGY (MULTIPLE) NORMAL APPEARANCE (NORMAL)
[2017-12-12] MEDS: methylPREDNISolone SUCCINATE 40 MG/ML VIAL IVP SCH ×3 (06:13→17:53)
[2017-12-12] MEDS: SODIUM CHLORIDE FLUSH 0.9% 10 ML SYRINGE IVP SCH (06:14)
[2017-12-12] MEDS: PANTOPRAZOLE 40 MG VIAL IVP SCH (06:14)
--- NOTE | 2017-12-12 07:50 | PROVIDER PROGRESS NOTE ---
Subjective - Prog Note Date Prog Note Date: 12/12/17 Prog Note Time: 07:48 - Subjective Pt reports feeling: Worse Subjective: she had started to develop edema and gurgling respirations yesterday afternoon and I felt she was going into worse acute right sided failure. I stopped her IVF. The sanitation superintendent gave her lasix. She is on 7 liters nonrebreather. She feels comfortable but we see a continued deterioration. Current Medications - Current Medications Current Medications: Active Medications Albuterol/Ipratropium (Duoneb) 3 ml INH RTQ4H PRN PRN Reason: Wheezing Last Admin: 12/12/17 04:07 Dose: 3 ml Aspirin ([place] Aspirin) 81 mg PO DAILY PETROS Last Admin: 12/11/17 07:54 Dose: 81 mg Enoxaparin Sodium (Lovenox) 40 mg SUBQ DAILY PETROS Last Admin: 12/11/17 09:05 Dose: 40 mg Piperacillin Sod/Tazobactam (Sod 4.5 gm/ Sodium Chloride) 100 mls @ 25 mls/hr IV Q8H PETROS Last Admin: 12/12/17 04:14 Dose: 25 mls/hr Vancomycin HCl 1 gm/ Sodium (Chloride) 250 mls @ 166.667 mls/hr IV Q12H PETROS Last Infusion: 12/12/17 02:20 Dose: Infused Sodium Chloride (Normal Saline 0.9%) 500 mls @ 10 mls/hr IV .Q48H PRN PRN Reason: Peripheral Line Protocol Last Infusion: 12/10/17 12:23 Dose: Infused Sodium Chloride (Normal Saline 0.9%) 1,000 mls @ 20 mls/hr IV .Q48H PETROS PRN Reason: TKO Last Admin: 12/11/17 22:17 Dose: 20 mls/hr Lorazepam (Ativan Inj (Vial)) 0.5 mg IVP Q2H PRN PRN Reason: Anxiety Last Admin: 12/12/17 04:14 Dose: 0.5 mg Methylprednisolone (Solu-Medrol (40mg Vial)) 40 mg IVP Q6HR PETROS Last Admin: 12/12/17 06:13 Dose: 40 mg Morphine Sulfate (Morphine) 2 mg IVP Q2H PRN PRN Reason: Pain 8 to 10 Last Admin: 12/12/17 06:14 Dose: 2 mg Ondansetron HCl (Zofran Inj) 4 mg IVP Q6HR PRN PRN Reason: Nausea / Vomiting Last Admin: 12/10/17 09:20 Dose: 4 mg Pantoprazole Sodium (Protonix) 40 mg IVP QDAC [facility] Last Admin: 12/12/17 06:14 Dose: 40 mg Theophylline 400mg (Cap) 1 each PO QPM [facility] Last Admin: 12/11/17 22:17 Dose: Not Given Prochlorperazine Edisylate (Compazine Inj) 10 mg IVP Q6HR PRN PRN Reason: Nausea / Vomiting Saccharomyces Boulardii (Florastor) 250 mg PO BIDWM [facility] Last Admin: 12/11/17 18:13 Dose: Not Given Sodium Chloride (Normal Saline Flush 0.9%) 10 ml IVP 0100,0900,1700 [facility] Last Admin: 12/12/17 06:14 Dose: 10 ml Sodium Chloride (Normal Saline Flush 0.9%) 10 ml IVP PRN PRN PRN Reason: NEEDED PER PROVIDER ORDERS Last Admin: 12/11/17 13:51 Dose: 10 ml Sodium Phosphate (K-Phos Neutral) 250 mg PO Q2H [facility] PRN Reason: Protocol Stop: 12/12/17 10:01 Zolpidem Tartrate (Ambien) 10 mg PO HS PRN PRN Reason: Insomnia Last Admin: 12/11/17 23:17 Dose: 10 mg Albuterol [Ventolin Hfa] 2 puffs INH Q4H PRN 03/10/13 Multivitamin [Multivitamins] 1 tab PO DAILY 03/10/13 [place]-3 Fatty Acids/Fish Oil [[place] 3 Fish Oil Softgel] 1 each PO DAILY Aspirin Chewable [[place] Aspirin] 81 mg PO DAILY 04/29/13 Albuterol Sulfate 2.5 mg IH .BID-QID PRN 08/22/15 Budesonide [Pulmicort Flexhaler] 2 puffs IH BID 08/22/15 Olodaterol HCl [Striverdi Respimat] 2 puffs IH DAILY 08/22/15 Tiotropium [place] [Spiriva Respimat] 2 puffs IH DAILY 08/22/15 Levalbuterol [Xopenex] 1.25 mg INH QID PRN 11/08/17 Theophylline Anhydrous [Rm-24] 400 mg PO QPM 12/10/17 Zolpidem [Ambien] 10 mg PO HS PRN 12/10/17 Objective - Vital Signs/Intake & Output Reviewed Vital Signs: Yes Vital Signs: Vital Signs Temp Pulse Pulse Resp BP Pulse Ox 12/12/17 07:00 93 22 131/69 H 100 12/12/17 06:00 108 H 22 136/66 H 100 12/12/17 05:00 98 23 126/76 997 H 12/12/17 04:02 105 H 22 12/12/17 04:00 36.5 C 118 H 23 154/90 H 98 Intake & Output: Intake & Output 12/09/17 12/10/17 12/11/17 12/12/17 23:59 23:59 23:59 23:59 Intake Total 2071.767 6061.989 4928.644 740 Output Total 119 423 6642 Balance 2071.767 5264.989 4048.644 -1020 - Objective General Appearance: positive: Mild distress, Lethargic Eyes Bilateral: positive: PERRL ENT: positive: Pharynx nml Neck: negative: Stiff neck, Carotid bruit Respiratory: positive: Wheezes, Rales, Rhonchi, Other (gurgling is audible and atropine drops started) Cardiovascular: positive: Regular rate & rhythm, Tachycardia (up to 120's when really struggling with breathing), Systolic murmur. negative: Gallop/S4, Friction rub Abdomen: positive: Non-tender, No organomegaly, Nml bowel sounds, No distention Skin: positive: Warm, Dry Extremities: positive: Full ROM, Pedal edema Neurologic/Psychiatric: positive: Motor nml, Disoriented to time, Other (less and less alert and more anxious, needing more morphine and ativan even though good diuresis with lasix.) - Lab Results Fish Bones: 12/12/17 04:15 12/12/17 04:15 Other Labs: Lab Results x24hrs 12/12/17 12/12/17 12/12/17 Range/Units 04:15 04:15 04:15 WBC 9.5 (4.8-10.8) x10^3/uL RBC 4.19 L (4.20-5.40) 10^6/uL Hgb 11.5 L (12.0-16.0) g/dL Hct 35.4 L (37.0-47.0) % MCV 84.4 (81.0-99.0) fL MCH 27.5 (27.0-31.0) pg MCHC 32.6 (32.0-36.0) g/dL RDW 14.5 (12.0-15.0) % Plt Count 357 (130-450) 10^3/uL MPV 7.8 L (7.9-10.8) fL Neut # Not Reportable Lymph # Not Reportable [place] # Not Reportable Eos # Not Reportable Baso # Not Reportable Absolute Nucleated RBC Not Reportable Total Counted 100 Band Neuts % (Manual) 7 (0 - 10) % Abnorm Lymph % (Manual) 0 % Nucleated RBC % Not Reportable Neutrophils # (Manual) 8.7 H (1.5-6.6) 10^3/uL Lymphocytes # (Manual) 0.6 L (1.5-3.5) 10^3/uL Monocytes # (Manual) 0.2 (0.0-1.0) 10^3/uL Eosinophils # (Manual) 0.0 (0-0.7) 10^3/uL Basophils # (Manual) 0.0 (0-0.1) 10^3/uL Differential Comment MANUAL DIFFERENTIAL Platelet Estimate NORMAL (130-450,000) (NORMAL) RBC Morph Micro Appear NORMAL APPEARANCE (NORMAL) Bld Gas Analysis Time Sample Site ABG pH (7.35-7.45) ABG pCO2 (34-45) mmHg ABG pO2 (80-100) mmHg ABG HCO3 (22.0-26.0) mmol/L ABG Total CO2 (21.0-29.0) MMOL/L ABG O2 Saturation (94-98) % ABG Base Excess (-2.0-3.0) mmol/L Dae Test O2 Delivery Device O2 Liters/Min LPM Sodium 140 (135-145) mmol/L Potassium 4.2 (3.5-5.0) mmol/L Chloride 102 (101-111) mmol/L Carbon Dioxide 29 (21-32) mmol/L Anion Gap 9.0 (6-13) BUN 15 (6-20) mg/dL Creatinine 0.4 (0.4-1.0) mg/dL Estimated GFR (MDRD) 160 (>89) Glucose 131 H (70-100) mg/dL Calcium 8.2 L (8.5-10.3) mg/dL Phosphorus 2.6 (2.5-4.6) mg/dL Magnesium 2.3 (1.7-2.8) mg/dL Total Bilirubin 0.5 (0.2-1.0) mg/dL AST 15 (10-42) IU/L ALT 18 (10-60) IU/L Alkaline Phosphatase 47 (42-121) IU/L B-Natriuretic Peptide 585 H (5-100) pg/mL Total Protein 6.0 L (6.7-8.2) g/dL Albumin 2.9 L (3.2-5.5) g/dL Globulin 3.1 (2.1-4.2) g/dL Albumin/Globulin Ratio 0.9 L (1.0-2.2) Last Dose Date Last Dose Time Vancomycin Trough (5.0-15.0) ug/mL 12/12/17 12/11/17 Range/Units 00:25 11:17 WBC (4.8-10.8) x10^3/uL RBC (4.20-5.40) 10^6/uL Hgb (12.0-16.0) g/dL Hct (37.0-47.0) % MCV (81.0-99.0) fL MCH (27.0-31.0) pg MCHC (32.0-36.0) g/dL RDW (12.0-15.0) % Plt Count (130-450) 10^3/uL MPV (7.9-10.8) fL Neut # Lymph # [place] # Eos # Baso # Absolute Nucleated RBC Total Counted Band Neuts % (Manual) (0 - 10) % Abnorm Lymph % (Manual) % Nucleated RBC % Neutrophils # (Manual) (1.5-6.6) 10^3/uL Lymphocytes # (Manual) (1.5-3.5) 10^3/uL Monocytes # (Manual) (0.0-1.0) 10^3/uL Eosinophils # (Manual) (0-0.7) 10^3/uL Basophils # (Manual) (0-0.1) 10^3/uL Differential Comment Platelet Estimate (NORMAL) RBC Morph Micro Appear (NORMAL) Bld Gas Analysis Time 1128 Sample Site LEFT RADIAL ABG pH 7.29 L (7.35-7.45) ABG pCO2 58 H (34-45) mmHg ABG pO2 75 L (80-100) mmHg ABG HCO3 27.3 H (22.0-26.0) mmol/L ABG Total CO2 29.0 (21.0-29.0) MMOL/L ABG O2 Saturation 95 (94-98) % ABG Base Excess -0.3 (-2.0-3.0) mmol/L Dae Test NEGATIVE O2 Delivery Device OXYMASK O2 Liters/Min 5.00 LPM Sodium (135-145) mmol/L Potassium (3.5-5.0) mmol/L Chloride (101-111) mmol/L Carbon Dioxide (21-32) mmol/L Anion Gap (6-13) BUN (6-20) mg/dL Creatinine (0.4-1.0) mg/dL Estimated GFR (MDRD) (>89) Glucose (70-100) mg/dL Calcium (8.5-10.3) mg/dL Phosphorus (2.5-4.6) mg/dL Magnesium (1.7-2.8) mg/dL Total Bilirubin (0.2-1.0) mg/dL AST (10-42) IU/L ALT (10-60) IU/L Alkaline Phosphatase (42-121) IU/L B-Natriuretic Peptide (5-100) pg/mL Total Protein (6.7-8.2) g/dL Albumin (3.2-5.5) g/dL Globulin (2.1-4.2) g/dL Albumin/Globulin Ratio (1.0-2.2) Last Dose Date UNK Last Dose Time UNK Vancomycin Trough 12.7 (5.0-15.0) ug/mL Assessment/Plan - Problem List (1) Acute on chronic respiratory failure with hypoxia and hypercapnia Impression: Patient was recently hospitalized at [facility] in [place] for 1 week requiring intubation for acute respiratory failure secondary to pneumonia and COPD exacerbation. The patient initially was recovering well but had a significant decline over the last week and a half. The patient became increasingly hypoxic, increasingly short of air, with worsening cough and increasing dyspnea with exertion. the patient was in severe respiratory distress 12/09 and required intubation on arrival of EMS. 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 She has very minimal reserve and even any mild respiratory illness will put her into respiratory failure. Patient's respiratory failure is likely combination of COPD exacerbation and likely pneumonia. Although the patient's chest x-ray is not showing any obvious infiltrate she does have a leukocytosis, tachycardia on presentation and likely does have pneumonia. was on ventilator on admit 12/09 and into next day, Day #2, and she improved. But she then extubated herself early 12/10 and has been slowly deteriorating again. While we have ordered palliative care consult, the MARKETING STRATEGIST is on vacation. Continues to be treated for COPD exacerbation with IV steroids, duo nebs and high flow O2 but she refuses BiPAP because of claustrophobia even with sedatives. She continues to refuse in spite of worse respiratory status. Patient will also be treated for healthcare associated pneumonia with broad- spectrum antibiotics, Day #4 We will continue to monitor patient closely in the intensive care unit . Increase Ativan frequency and continue same morphine dose. She is not requesting transfer to another facility when I ask here. She does not re-intubation. Daughter was at the bedside after work yesterday and listened to her mom's new statements and is not protesting the change to DNR/ DNI. She is not doing well. (2) HCAP (healthcare-associated pneumonia) Conclusion/Plan: The patient presented with acute on chronic respiratory failure and required intubation. Although the patient's chest x-ray does not show obvious infiltrate. The patient does present with leukocytosis, tachycardia, hypoxia, hypercapnia and severe respiratory failure. The patient was also recently hospitalized with pneumonia. The patient will be treated for healthcare associated pneumonia. Repeat chest xray last night shows worsening left lower lung opacity with the same chronic fibrotic opacifications bilaterally. Sputum culture was ordered on admission and so far there has been none submitted to allow narrowing of antibiotic coverage. Plan: Patient will be treated with IV vancomycin and Zosyn, today is Day #4, for healthcare associated pneumonia given her recent hospitalization. She has not had sputum collected for culture. Blood cultures not ordered in ER or admission. Lactic acid responded to IVF resuscitation and no blood cultures ordered then. WBC is down today but still with left shift. Since her respiratory status is not improving, will continue abx. (3) COPD exacerbation Conclusion/Plan: The patient has end-stage COPD and is on 4 L of oxygen at home. The patient appears to have severe emphysema and pulmonary fibrosis on her chest x-ray. She was recently hospitalized and intubated for a COPD exacerbation in the setting of pneumonia. She appears to be presenting with similar presentation today. She has been intubated and does have very tight lungs on examination. Plan: Continue to treat with IV Solu-Medrol, duo nebs initially around the clock and then as needed She will be given IV antibiotics for healthcare associated pneumonia,, Day #4. Patient will need a palliative care consult once she is extubated and stable. (4) Pulmonary hypertension Conclusion/Plan: Patient has pulmonary hypertension and right-sided heart failure according to her previous echocardiogram from 2013. The patient's PA pressure at that time was 48 mmHg I suspect that it is much worse at this time. The patient's pulmonary hypertension and right-sided heart failure is likely secondary to her severe COPD and emphysema. Yesterday's exam showed that her right sided failure is worse with the fluids we gave her for hypotension on admisson and the next day. She was 11,385 cc positive by morning of 12/11. With the lasix she was 1020 negative from yesterday to this am. We will have to balance need for BP support vs. diuresis. IVF were stopped and she received lasix in the deck lid fitter ours of today. BNP is 585 this am. Plan: Echocardiogram final report from yesterday reviewed. Not able to assess RVSP. LVEF preserved. No significant valvular heart disease. Continue prn lasix. already had a dose at ~4 am, will do one at 13:00.
[2017-12-12] MEDS: NEUTRA-PHOS 250 MG TABLET PO SCH ×2 (09:48→11:36)
[2017-12-12] MEDS: ASPIRIN CHEW 81 MG TABLET PO SCH (09:48)
[2017-12-12] MEDS: SACCHAROMYCES BOULARDII 250 MG CAPSULE PO SCH ×2 (09:49→19:35)
[2017-12-12] MEDS: ENOXAPARIN 40 MG/0.4 ML SYRINGE SUBQ SCH (10:13)
[2017-12-12] MEDS ORDERED: FUROSEMIDE 40 MG/4 ML VIAL IVP SCH (14:32)
[2017-12-12] MEDS: THEOPHYLLINE 400 MG PO SCH (21:24)
[2017-12-13] MEDS: methylPREDNISolone SUCCINATE 40 MG/ML VIAL IVP SCH ×2 (00:23→06:12)
[2017-12-13] MEDS: MORPHINE 2 MG/ML SYRINGE IVP PRN ×9 (01:06→23:09)
[2017-12-13] MEDS: VANCOMYCIN INJ 1 GM in SODIUM CHLORIDE 0.9% 250 ML IV SCH (01:08)
[2017-12-13] MEDS: SCOPOLAMINE PATCH TOP SCH (01:09)
[2017-12-13] MEDS: LORazepam 2 MG/ML VIAL IVP PRN ×6 (01:41→20:50)
[2017-12-13] MEDS: IPRATROPIUM/ALBUTEROL 3 ML NEB INH PRN ×2 (01:43→11:15)
[2017-12-13] MEDS: SODIUM CHLORIDE FLUSH 0.9% 10 ML SYRINGE IVP SCH ×3 (01:58→17:21)
[2017-12-13 05:03] LABS: BASOPHILS % (AUTO) 0.9 %; EOSINOPHILS % (AUTO) 0.1 %; LYMPHOCYTES % (AUTO) 5.5 %; MEAN CORPUSCULAR HEMOGLOBIN 27.8 pg (27.0-31.0); MEAN CORPUSCULAR HGB CONC 33.4 g/dL (32.0-36.0); MEAN CORPUSCULAR VOLUME 83.2 fL (81.0-99.0); MEAN PLATELET VOLUME 7.9 fL (7.9-10.8); MONOCYTES % (AUTO) 5.2 %; NEUTROPHILS % (AUTO) 88.3 %; PLT - PLATELET COUNT 347 10^3/uL (130-450); RED BLOOD COUNT 4.34 10^6/uL (4.20-5.40); RED CELL DISTRIBUTION WIDTH 14.5 % (12.0-15.0); WHITE BLOOD COUNT 10.8 x10^3/uL (4.8-10.8)
[2017-12-13 05:07] LABS: ABNORMAL LYMPHS % (MANUAL) 0 %
[2017-12-13 05:14] LABS: ALBUMIN 3.1 g/dL (3.2-5.5); ALBUMIN/GLOBULIN RATIO 1.1 (1.0-2.2); BILIRUBIN,TOTAL 0.9 mg/dL (0.2-1.0); CALCIUM 8.6 mg/dL (8.5-10.3); CREATININE 0.5 mg/dL (0.4-1.0); MAGNESIUM 2.2 mg/dL (1.7-2.8); PHOSPHORUS 2.7 mg/dL (2.5-4.6); TOTAL PROTEIN 5.9 g/dL (6.7-8.2)
[2017-12-13 05:31] LABS: BAND NEUTROPHILS % (MANUAL) 5 %; DIFFERENTIAL COMMENT MANUAL DIFFERENTIAL; LYMPHOCYTES # (MANUAL) 0.6 10^3/uL (1.5-3.5); LYMPHOCYTES % (MANUAL) 6 %; MONOCYTES # (MANUAL) 0.4 10^3/uL (0.0-1.0); NEUTROPHILS # (MANUAL) 9.7 10^3/uL (1.5-6.6); NEUTROPHILS % (MANUAL) 85 %; PLATELET ESTIMATE, MANUAL NORMAL (130-450,000) (NORMAL); RBC MORPHOLOGY (MULTIPLE) NORMAL APPEARANCE (NORMAL)
[2017-12-13] MEDS: PANTOPRAZOLE 40 MG VIAL IVP SCH (06:40)
--- NOTE | 2017-12-13 07:56 | PROVIDER PROGRESS NOTE ---
Subjective - Prog Note Date Prog Note Date: 12/13/17 Prog Note Time: 07:52 - Subjective Subjective: her gurgling respirations have not improved with lasix or atropine drops. Scopalamine patch added by neonatal critical care nurse. Daughter and I spoke yesterday evening and she is resigned to mom not making it. Acknowledges mom's fatigue, tired of being tired. Long road of chronic illness ending here. Current Medications - Current Medications Current Medications: Active Medications Albuterol/Ipratropium (Duoneb) 3 ml INH RTQ4H PRN PRN Reason: Wheezing Last Admin: 12/13/17 01:43 Dose: 3 ml Aspirin ([place] Aspirin) 81 mg PO DAILY PETROS Last Admin: 12/12/17 09:48 Dose: 81 mg Atropine Sulfate (Isopto Atropine 1% Ophth Drops) 2 drops SL Q2H PRN PRN Reason: Excessive Secretions Enoxaparin Sodium (Lovenox) 40 mg SUBQ DAILY PETROS Last Admin: 12/12/17 10:13 Dose: 40 mg Piperacillin Sod/Tazobactam (Sod 4.5 gm/ Sodium Chloride) 100 mls @ 25 mls/hr IV Q8H PETROS Last Infusion: 12/13/17 00:36 Dose: Infused Vancomycin HCl 1 gm/ Sodium (Chloride) 250 mls @ 166.667 mls/hr IV Q12H PETROS Last Infusion: 12/13/17 02:40 Dose: Infused Sodium Chloride (Normal Saline 0.9%) 500 mls @ 10 mls/hr IV .Q48H PRN PRN Reason: Peripheral Line Protocol Last Infusion: 12/10/17 12:23 Dose: Infused Sodium Chloride (Normal Saline 0.9%) 1,000 mls @ 20 mls/hr IV .Q48H PETROS PRN Reason: TKO Last Infusion: 12/13/17 06:57 Dose: 25 mls/hr Lorazepam (Ativan Inj (Vial)) 0.5 mg IVP Q1H PRN PRN Reason: Anxiety Last Admin: 12/13/17 07:29 Dose: 0.5 mg Methylprednisolone (Solu-Medrol (40mg Vial)) 40 mg IVP Q6HR PETROS Last Admin: 12/13/17 06:12 Dose: 40 mg Morphine Sulfate (Morphine) 2 mg IVP Q2H PRN PRN Reason: Pain 8 to 10 Last Admin: 12/13/17 06:55 Dose: 2 mg Ondansetron HCl (Zofran Inj) 4 mg IVP Q6HR PRN PRN Reason: Nausea / Vomiting Last Admin: 12/10/17 09:20 Dose: 4 mg Pantoprazole Sodium (Protonix) 40 mg IVP QDAC [facility] Last Admin: 12/13/17 06:40 Dose: 40 mg Theophylline 400mg (Cap) 1 each PO QPM [facility] Last Admin: 12/12/17 21:24 Dose: Not Given Prochlorperazine Edisylate (Compazine Inj) 10 mg IVP Q6HR PRN PRN Reason: Nausea / Vomiting Saccharomyces Boulardii (Florastor) 250 mg PO BIDWM [facility] Last Admin: 12/12/17 19:35 Dose: Not Given Scopolamine HBr (Transderm-Scop) 1 patch TOP Q3D [facility] Last Admin: 12/13/17 01:09 Dose: 1 patch Sodium Chloride (Normal Saline Flush 0.9%) 10 ml IVP 0100,0900,1700 [facility] Last Admin: 12/13/17 01:58 Dose: Not Given Sodium Chloride (Normal Saline Flush 0.9%) 10 ml IVP PRN PRN PRN Reason: NEEDED PER PROVIDER ORDERS Last Admin: 12/11/17 13:51 Dose: 10 ml Zolpidem Tartrate (Ambien) 10 mg PO HS PRN PRN Reason: Insomnia Last Admin: 12/11/17 23:17 Dose: 10 mg Albuterol [Ventolin Hfa] 2 puffs INH Q4H PRN 03/10/13 Multivitamin [Multivitamins] 1 tab PO DAILY 03/10/13 [place]-3 Fatty Acids/Fish Oil [[place] 3 Fish Oil Softgel] 1 each PO DAILY Aspirin Chewable [[place] Aspirin] 81 mg PO DAILY 04/29/13 Albuterol Sulfate 2.5 mg IH .BID-QID PRN 08/22/15 Budesonide [Pulmicort Flexhaler] 2 puffs IH BID 08/22/15 Olodaterol HCl [Striverdi Respimat] 2 puffs IH DAILY 08/22/15 Tiotropium [place] [Spiriva Respimat] 2 puffs IH DAILY 08/22/15 Levalbuterol [Xopenex] 1.25 mg INH QID PRN 11/08/17 Theophylline Anhydrous [Rm-24] 400 mg PO QPM 12/10/17 Zolpidem [Ambien] 10 mg PO HS PRN 12/10/17 Objective - Vital Signs/Intake & Output Reviewed Vital Signs: Yes Vital Signs: Vital Signs Pulse Resp BP Pulse Ox 12/13/17 07:00 104 H 23 128/72 93 12/13/17 06:00 101 H 22 148/98 H 97 12/13/17 05:00 103 H 21 136/75 H 97 12/13/17 04:00 105 H 20 138/86 H 93 Intake & Output: Intake & Output 12/10/17 12/11/17 12/12/17 12/13/17 23:59 23:59 23:59 23:59 Intake Total 6061.989 4928.644 2105.083 330 Output Total 952 144 8260 400 Balance 5264.989 4048.644 -2999.917 -70 - Objective General Appearance: positive: Moderate distress (respiratory), Other (still gurgling, responds to voice but not spontaneous conversation. one word answers.) Eyes Bilateral: positive: PERRL ENT: positive: Dry mucous membranes Neck: negative: Stiff neck, Carotid bruit Respiratory: positive: Rales, Rhonchi Cardiovascular: positive: Regular rate & rhythm, Tachycardia. negative: Gallop/ S4, Friction rub Abdomen: positive: Non-tender, No organomegaly, Nml bowel sounds, No distention Skin: positive: Pallor Extremities: positive: Pedal edema Neurologic/Psychiatric: positive: Other (less and less alert over the last 2 days, stuggling to stay conscious and sleeping most of the time.) - Lab Results Fish Bones: 12/13/17 04:30 12/13/17 04:30 Other Labs: Lab Results x24hrs 12/13/17 12/13/17 Range/Units 04:30 04:30 WBC 10.8 (4.8-10.8) x10^3/uL RBC 4.34 (4.20-5.40) 10^6/uL Hgb 12.0 (12.0-16.0) g/dL Hct 36.1 L (37.0-47.0) % MCV 83.2 (81.0-99.0) fL MCH 27.8 (27.0-31.0) pg MCHC 33.4 (32.0-36.0) g/dL RDW 14.5 (12.0-15.0) % Plt Count 347 (130-450) 10^3/uL MPV 7.9 (7.9-10.8) fL Neut # Not Reportable Lymph # Not Reportable [place] # Not Reportable Eos # Not Reportable Baso # Not Reportable Absolute Nucleated RBC Not Reportable Total Counted 100 Band Neuts % (Manual) 5 (0 - 10) % Abnorm Lymph % (Manual) 0 % Nucleated RBC % Not Reportable Neutrophils # (Manual) 9.7 H (1.5-6.6) 10^3/uL Lymphocytes # (Manual) 0.6 L (1.5-3.5) 10^3/uL Monocytes # (Manual) 0.4 (0.0-1.0) 10^3/uL Eosinophils # (Manual) 0.0 (0-0.7) 10^3/uL Basophils # (Manual) 0.0 (0-0.1) 10^3/uL Differential Comment MANUAL DIFFERENTIAL Platelet Estimate NORMAL (130-450,000) (NORMAL) RBC Morph Micro Appear NORMAL APPEARANCE (NORMAL) Sodium 141 (135-145) mmol/L Potassium 3.7 (3.5-5.0) mmol/L Chloride 93 L (101-111) mmol/L Carbon Dioxide 37 H (21-32) mmol/L Anion Gap 11.0 (6-13) BUN 20 (6-20) mg/dL Creatinine 0.5 (0.4-1.0) mg/dL Estimated GFR (MDRD) 123 (>89) Glucose 129 H (70-100) mg/dL Calcium 8.6 (8.5-10.3) mg/dL Phosphorus 2.7 (2.5-4.6) mg/dL Magnesium 2.2 (1.7-2.8) mg/dL Total Bilirubin 0.9 (0.2-1.0) mg/dL AST 18 (10-42) IU/L ALT 21 (10-60) IU/L Alkaline Phosphatase 49 (42-121) IU/L Total Protein 5.9 L (6.7-8.2) g/dL Albumin 3.1 L (3.2-5.5) g/dL Globulin 2.8 (2.1-4.2) g/dL Albumin/Globulin Ratio 1.1 (1.0-2.2) Assessment/Plan - Problem List (1) Acute on chronic respiratory failure with hypoxia and hypercapnia Impression: Patient was recently hospitalized at [facility] in [place] for 1 week requiring intubation for acute respiratory failure secondary to pneumonia and COPD exacerbation. The patient initially was recovering well but had a significant decline over the last week and a half. The patient became increasingly hypoxic, increasingly short of air, with worsening cough and increasing dyspnea with exertion. the patient was in severe respiratory distress 12/09 and required intubation on arrival of EMS. 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 She has very minimal reserve and even any mild respiratory illness will put her into respiratory failure. Patient's respiratory failure is likely combination of COPD exacerbation and likely pneumonia. Although the patient's chest x-ray is not showing any obvious infiltrate she does have a leukocytosis, tachycardia on presentation and likely does have pneumonia. was on ventilator on admit 5/ and into next day, Day #2, and she improved. But she then extubated herself early 515 and has been slowly deteriorating again. While we have ordered palliative care consult, the SUPERVISOR [employer] is on vacation. Continues to be treated for COPD exacerbation with IV steroids, duo nebs and high flow O2 but she refuses BiPAP because of claustrophobia even with sedatives. Her prognosis is poor. We anticipate . She is continuing to deteriorate since extubation. Patient will also be treated for healthcare associated pneumonia with broad- spectrum antibiotics, Day #5 We will continue to monitor patient closely in the intensive care unit but consider transferring to floor with comfort measures only if she decideds to stop treatment. Our current treatment is not working. I have increased Ativan frequency and continued same morphine dose yesterday. Atropine drops not enough and scopalamine patch added last night. She and daughter both state that they do not want re-intubation. I have transitioned her to comfort measures only since she is not reponding and she did not want further agressive treatment. Daughter is accepting of this. (2) HCAP (healthcare-associated pneumonia) Conclusion/Plan: The patient presented with acute on chronic respiratory failure and required intubation. Although the patient's chest x-ray does not show obvious infiltrate. The patient does present with leukocytosis, tachycardia, hypoxia, hypercapnia and severe respiratory failure. The patient was also recently hospitalized with pneumonia. The patient will be treated for healthcare associated pneumonia. Repeat chest xray last night shows worsening left lower lung opacity with the same chronic fibrotic opacifications bilaterally. Sputum culture was ordered on admission and so far there has been none submitted to allow narrowing of antibiotic coverage. Plan: Patient is being treated with IV vancomycin and Zosyn, today is Day #5, for healthcare associated pneumonia given her recent hospitalization. She has not had sputum collected for culture. Blood cultures not ordered in ER or admission. Lactic acid responded to IVF resuscitation and no blood cultures ordered then. WBC has been down since yesterday but still with left shift. Since her respiratory status is not improving, will transition to comfort measures only.Stop abx. (3) COPD exacerbation Conclusion/Plan: The patient has end-stage COPD and is on 4 L of oxygen at home. The patient appears to have severe emphysema and pulmonary fibrosis on her chest x-ray. She was recently hospitalized and intubated for a COPD exacerbation in the setting of pneumonia. She appears to be presenting with similar presentation today. She had been intubated and does have very tight lungs on examination. No improvement with abx, steroids, BiPAP, diuresis. Plan: we Continued to treat with IV Solu-Medrol, duo nebs initially around the clock and then as needed She was given IV antibiotics for healthcare associated pneumonia, Day #5. Stop meds for COPD and transition to comfort only. (4) Pulmonary hypertension Conclusion/Plan: Patient has pulmonary hypertension and right-sided heart failure according to her previous echocardiogram from 2013. The patient's PA pressure at that time was 48 mmHg I suspect that it is much worse at this time. The patient's pulmonary hypertension and right-sided heart failure is likely secondary to her severe COPD and emphysema. By 12/11 her right sided failure was worse with the fluids we gave her for hypotension on admisson and the next day. She was 11,385 cc positive by morning of 12/11. With the lasix she was 1020 negative from 12/11 to 12/12. We will have to balance need for BP support vs. diuresis. IVF were stopped and she received lasix in the bale coverer hours of 12/12 and then again around 13:30 BNP was 585 this yesterday. I won't check today. Echocardiogram final report has been reviewed. Not able to assess RVSP. LVEF preserved. No significant valvular heart disease. Continue prn lasix.
[2017-12-13] MEDS: SACCHAROMYCES BOULARDII 250 MG CAPSULE PO SCH (08:26)
[2017-12-13] MEDS: SODIUM CHLORIDE 0.9% 1,000 ML IV SCH (08:33)
[2017-12-13] MEDS: ENOXAPARIN 40 MG/0.4 ML SYRINGE SUBQ SCH (08:40)
[2017-12-13] MEDS ORDERED: PIPERACILLIN/TAZOBACTAM 4.5 GM in SODIUM CHLORIDE 0.9% MINIBAG 100 ML IV SCH (09:00)
[2017-12-13] MEDS: ASPIRIN CHEW 81 MG TABLET PO SCH (09:06)
[2017-12-13] MEDS ORDERED: HALOPERIDOL 5 MG/ML VIAL IVP PRN (11:56)
[2017-12-13] MEDS ORDERED: HALOPERIDOL 1 MG TABLET PO PRN (11:56)
[2017-12-13] MEDS ORDERED: CARBOXYMETHYLCELLULOSE OPHTH DROPS EACHEYE PRN (11:56)
[2017-12-13] MEDS ORDERED: ACETAMINOPHEN 650 MG SUPP PR PRN (11:56)
[2017-12-13] MEDS: SODIUM CHLORIDE FLUSH 0.9% 10 ML SYRINGE IVP PRN (17:21)
[2017-12-13] MEDS: THEOPHYLLINE 400 MG PO SCH (22:23)
[2017-12-14] MEDS: SODIUM CHLORIDE FLUSH 0.9% 10 ML SYRINGE IVP SCH ×4 (02:41→23:51)
[2017-12-14] MEDS: MORPHINE 2 MG/ML SYRINGE IVP PRN ×9 (02:41→23:51)
[2017-12-14] MEDS: LORazepam 2 MG/ML VIAL IVP PRN ×3 (03:00→18:56)
[2017-12-14] MEDS: SODIUM CHLORIDE FLUSH 0.9% 10 ML SYRINGE IVP PRN ×7 (04:34→21:21)
[2017-12-14 05:50] LABS: BILIRUBIN,TOTAL 0.9 mg/dL (0.2-1.0); CALCIUM 8.4 mg/dL (8.5-10.3); CREATININE 0.5 mg/dL (0.4-1.0); MAGNESIUM 2.2 mg/dL (1.7-2.8); PHOSPHORUS 2.2 mg/dL (2.5-4.6)
[2017-12-14 05:52] LABS: BASOPHILS # (AUTO) 0.1 10^3/uL (0.0-0.1); BASOPHILS % (AUTO) 0.6 %; EOSINOPHILS # (AUTO) 0.1 10^3/uL (0.0-0.7); EOSINOPHILS % (AUTO) 0.8 %; HGB - HEMOGLOBIN 12.6 g/dL (12.0-16.0); LYMPHOCYTES # (AUTO) 1.4 10^3/uL (1.5-3.5); LYMPHOCYTES % (AUTO) 9.6 %; MEAN CORPUSCULAR HEMOGLOBIN 26.9 pg (27.0-31.0); MEAN CORPUSCULAR HGB CONC 31.9 g/dL (32.0-36.0); MEAN CORPUSCULAR VOLUME 84.3 fL (81.0-99.0); MEAN PLATELET VOLUME 8.2 fL (7.9-10.8); MONOCYTES # (AUTO) 1.3 10^3/uL (0.0-1.0); MONOCYTES % (AUTO) 9.1 %; NEUTROPHILS # (AUTO) 11.9 10^3/uL (1.5-6.6); NEUTROPHILS % (AUTO) 79.9 %; PLT - PLATELET COUNT 416 10^3/uL (130-450); RED BLOOD COUNT 4.68 10^6/uL (4.20-5.40); RED CELL DISTRIBUTION WIDTH 14.5 % (12.0-15.0); WHITE BLOOD COUNT 14.9 x10^3/uL (4.8-10.8)
[2017-12-14 06:53] LABS: DIFFERENTIAL COMMENT MANUAL=AUTO DIFF; PLATELET ESTIMATE, MANUAL NORMAL (130-450,000) (NORMAL); PLATELET MORPHOLOGY NORMAL APPEARANCE (NORMAL); RBC MORPHOLOGY (MULTIPLE) NORMAL APPEARANCE (NORMAL)
[2017-12-14] MEDS: ASPIRIN CHEW 81 MG TABLET PO SCH (10:59)
--- NOTE | 2017-12-14 15:12 | PROVIDER PROGRESS NOTE ---
Subjective - Prog Note Date Prog Note Date: 12/14/17 Prog Note Time: 15:10 - Subjective Subjective: she is still awake enough at times to be frustrated and throw a glass of water at the RN but most of the time asleep, struggling to breath, and is now Med Surg status. comfort measures only. waiting to Current Medications - Current Medications Current Medications: Active Medications Acetaminophen (Tylenol) 650 mg [place] Q4H PRN PRN Reason: Fever >101 Albuterol/Ipratropium (Duoneb) 3 ml INH RTQ4H PRN PRN Reason: Wheezing Last Admin: 12/13/17 11:15 Dose: 3 ml Aspirin ([place] Aspirin) 81 mg PO DAILY PETROS Last Admin: 12/14/17 10:59 Dose: Not Given Atropine Sulfate (Isopto Atropine 1% Ophth Drops) 2 drops SL Q2H PRN PRN Reason: Excessive Secretions Carboxymethylcellulose (Refresh 1% Ophth Drops) 1 drops EACHEYE QID PRN PRN Reason: Dry Eye Haloperidol (Haldol) 1 mg PO Q6H PRN PRN Reason: Nausea / Vomiting Haloperidol (Haldol Inj) 0.5 mg IVP Q6H PRN PRN Reason: Nausea / Vomiting Sodium Chloride (Normal Saline 0.9%) 500 mls @ 10 mls/hr IV .Q48H PRN PRN Reason: Peripheral Line Protocol Last Infusion: 12/10/17 12:23 Dose: Infused Sodium Chloride (Normal Saline 0.9%) 1,000 mls @ 20 mls/hr IV .Q48H PETROS PRN Reason: TKO Last Infusion: 12/13/17 14:00 Dose: Infused Lorazepam (Ativan Inj (Vial)) 0.5 mg IVP Q1H PRN PRN Reason: Anxiety Last Admin: 12/14/17 08:23 Dose: 0.5 mg Lorazepam (Ativan) 1 mg PO Q6H PRN PRN Reason: Anxiety/Agitation Lorazepam (Ativan Inj (Vial)) 1 mg IVP Q6H PRN PRN Reason: Anxiety/Agitation Last Admin: 12/14/17 03:00 Dose: 1 mg Morphine Sulfate (Morphine) 2 mg IVP Q2H PRN PRN Reason: Pain 8 to 10 Last Admin: 12/14/17 13:39 Dose: 2 mg Morphine Sulfate (Roxanol) 10 mg SL Q2HR PRN PRN Reason: PAIN Ondansetron HCl (Zofran Inj) 4 mg IVP Q6HR PRN PRN Reason: Nausea / Vomiting Last Admin: 12/10/17 09:20 Dose: 4 mg Theophylline 400mg (Cap) 1 each PO QPM [facility] Last Admin: 12/13/17 22:23 Dose: Not Given Prochlorperazine Edisylate (Compazine Inj) 10 mg IVP Q6HR PRN PRN Reason: Nausea / Vomiting Scopolamine HBr (Transderm-Scop) 1 patch TOP Q3D [facility] Last Admin: 12/13/17 01:09 Dose: 1 patch Sodium Chloride (Normal Saline Flush 0.9%) 10 ml IVP 0100,0900,1700 [facility] Last Admin: 12/14/17 10:58 Dose: 10 ml Sodium Chloride (Normal Saline Flush 0.9%) 10 ml IVP PRN PRN PRN Reason: NEEDED PER PROVIDER ORDERS Last Admin: 12/14/17 13:39 Dose: 10 ml Albuterol [Ventolin Hfa] 2 puffs INH Q4H PRN 03/10/13 Multivitamin [Multivitamins] 1 tab PO DAILY 03/10/13 [place]-3 Fatty Acids/Fish Oil [[place] 3 Fish Oil Softgel] 1 each PO DAILY Aspirin Chewable [[place] Aspirin] 81 mg PO DAILY 04/29/13 Albuterol Sulfate 2.5 mg IH .BID-QID PRN 08/22/15 Budesonide [Pulmicort Flexhaler] 2 puffs IH BID 08/22/15 Olodaterol HCl [Striverdi Respimat] 2 puffs IH DAILY 08/22/15 Tiotropium [place] [Spiriva Respimat] 2 puffs IH DAILY 08/22/15 Levalbuterol [Xopenex] 1.25 mg INH QID PRN 11/08/17 Theophylline Anhydrous [Rm-24] 400 mg PO QPM 12/10/17 Zolpidem [Ambien] 10 mg PO HS PRN 12/10/17 Objective - Vital Signs/Intake & Output Reviewed Vital Signs: Yes Vital Signs: Vital Signs x48h Pulse Resp Pulse Ox 12/14/17 13:44 103 H 28 H 97 12/14/17 10:30 28 H Intake & Output: Intake & Output 12/11/17 12/12/17 12/13/17 12/14/17 23:59 23:59 23:59 23:59 Intake Total 4928.644 2105.083 876.25 0 Output Total 880 5105 752 1325 Balance 4048.644 -2999.917 124.25 -1325 - Objective General Appearance: positive: Moderate distress, Lethargic (short statured moderately overweight elderly female laying on back, asleep, gurgling respirations with phlegm at back of throat) Eyes Bilateral: positive: PERRL Neck: negative: Stiff neck Respiratory: positive: Chest non-tender, Wheezes, Rhonchi, Other (increased effort to breath, getting tachy) Cardiovascular: positive: Tachycardia (right now but not all the time, rate low 100's) Abdomen: positive: Non-tender, No organomegaly, Nml bowel sounds, No distention Extremities: positive: Full ROM, Pedal edema Neurologic/Psychiatric: positive: CN's nml (2-12), Motor nml, Disoriented to time, Slurred/abnml speech - Lab Results Fish Bones: 12/14/17 05:00 12/14/17 05:00 Other Labs: Lab Results x24hrs 12/14/17 12/14/17 Range/Units 05:00 05:00 WBC 14.9 H (4.8-10.8) x10^3/uL RBC 4.68 (4.20-5.40) 10^6/uL Hgb 12.6 (12.0-16.0) g/dL Hct 39.5 (37.0-47.0) % MCV 84.3 (81.0-99.0) fL MCH 26.9 L (27.0-31.0) pg MCHC 31.9 L (32.0-36.0) g/dL RDW 14.5 (12.0-15.0) % Plt Count 416 (130-450) 10^3/uL MPV 8.2 (7.9-10.8) fL Neut # 11.9 H (1.5-6.6) 10^3/uL Lymph # 1.4 L (1.5-3.5) 10^3/uL [place] # 1.3 H (0.0-1.0) 10^3/uL Eos # 0.1 (0.0-0.7) 10^3/uL Baso # 0.1 (0.0-0.1) 10^3/uL Absolute Nucleated RBC 0.02 x10^3/uL Band Neuts % (Manual) Not Reportable Abnorm Lymph % (Manual) Not Reportable Nucleated RBC % 0.1 /100WBC Neutrophils # (Manual) Not Reportable Lymphocytes # (Manual) Not Reportable Monocytes # (Manual) Not Reportable Eosinophils # (Manual) Not Reportable Basophils # (Manual) Not Reportable Differential Comment MANUAL=AUTO DIFF Platelet Estimate NORMAL (130-450,000) (NORMAL) Platelet Morphology NORMAL APPEARANCE (NORMAL) RBC Morph Micro Appear NORMAL APPEARANCE (NORMAL) Sodium 139 (135-145) mmol/L Potassium 3.5 (3.5-5.0) mmol/L Chloride 92 L (101-111) mmol/L Carbon Dioxide 37 H (21-32) mmol/L Anion Gap 10.0 (6-13) BUN 22 H (6-20) mg/dL Creatinine 0.5 (0.4-1.0) mg/dL Estimated GFR (MDRD) 123 (>89) Glucose 92 (70-100) mg/dL Calcium 8.4 L (8.5-10.3) mg/dL Phosphorus 2.2 L (2.5-4.6) mg/dL Magnesium 2.2 (1.7-2.8) mg/dL Total Bilirubin 0.9 (0.2-1.0) mg/dL AST 40 (10-42) IU/L ALT 44 (10-60) IU/L Alkaline Phosphatase 58 (42-121) IU/L Total Protein 6.0 L (6.7-8.2) g/dL Albumin 3.0 L (3.2-5.5) g/dL Globulin 3.0 (2.1-4.2) g/dL Albumin/Globulin Ratio 1.0 (1.0-2.2) Assessment/Plan - Problem List (1) Acute on chronic respiratory failure with hypoxia and hypercapnia Impression: Patient was recently hospitalized at [facility] for 1 week requiring intubation for acute respiratory failure secondary to pneumonia and COPD exacerbation. The patient initially was recovering well but had a significant decline over the last week and a half. The patient became increasingly hypoxic, increasingly short of air, with worsening cough and increasing dyspnea with exertion. the patient was in severe respiratory distress 12/09 and required intubation on arrival of EMS. 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 She has very minimal reserve and even any mild respiratory illness will put her into respiratory failure. Patient's respiratory failure is likely combination of COPD exacerbation and likely pneumonia. Although the patient's chest x-ray is not showing any obvious infiltrate she does have a leukocytosis, tachycardia on presentation and likely does have pneumonia. was on ventilator on admit 12/09 and into next day, Day #2, and she improved. But she then extubated herself early 12/10 and has been slowly deteriorating again. While we have ordered palliative care consult, the TAILER OUT is on vacation. Continues to be treated for COPD exacerbation with IV steroids, duo nebs and high flow O2 but she refuses BiPAP because of claustrophobia even with sedatives. Her prognosis is poor. We anticipate . She is continuing to deteriorate since extubation in spite of diuretics, steroids, abx, nebs and High flow nasal O2. She asked to be transitioned to comfort measures and daughter was supportive of that. She is no atropine drops, scopalamine, morphine and ativan. At times she is awake enough to be frustrated and angry and fearful of all of this. She acknowledges that this is what she wants but it's a struggle for her. Will increase meds to help with anxiety. (2) HCAP (healthcare-associated pneumonia) Conclusion/Plan: The patient presented with acute on chronic respiratory failure and required intubation. Although the patient's chest x-ray does not show obvious infiltrate. The patient does present with leukocytosis, tachycardia, hypoxia, hypercapnia and severe respiratory failure. The patient was also recently hospitalized with pneumonia. The patient will be treated for healthcare associated pneumonia. Repeat chest xray last night shows worsening left lower lung opacity with the same chronic fibrotic opacifications bilaterally. Sputum culture was ordered on admission and so far there has been none submitted to allow narrowing of antibiotic coverage. Plan: Patient was being treated with IV vancomycin and Zosyn, and yesterday was Day # 5 for healthcare associated pneumonia given her recent hospitalization. She has not had sputum collected for culture. Blood cultures not ordered in ER or admission. Lactic acid responded to IVF resuscitation and no blood cultures ordered then. WBC did come down but still had left shift. Since her respiratory status was and is not improving, transitioned to comfort measures only.Stopped abx 12/13 (3) COPD exacerbation Conclusion/Plan: The patient has end-stage COPD and was on 4 L of oxygen at home. The patient appears to have severe emphysema and pulmonary fibrosis on her chest x-ray. She was recently hospitalized and intubated for a COPD exacerbation in the setting of pneumonia. This was her fourth time for extubation in face of respiratory failure. No improvement with abx, steroids, intubation then BiPAP, diuresis. Plan: Stop meds for COPD and transition to comfort only. (4) Pulmonary hypertension Conclusion/Plan: Patient has pulmonary hypertension and right-sided heart failure according to her previous echocardiogram from 2013. The patient's PA pressure at that time was 48 mmHg I suspect that it is much worse at this time. The patient's pulmonary hypertension and right-sided heart failure is likely secondary to her severe COPD and emphysema. By 12/11 her right sided failure was worse with the fluids we gave her for hypotension on admisson and the next day. She was 11,385 cc positive by morning of 12/11. With the lasix she was 1020 negative from 12/11 to 12/12. We will have to balance need for BP support vs. diuresis. IVF were stopped and she received lasix in the kier boiler hours of 12/12 and then again around 13:30 BNP was 585 this yesterday. I won't check today. Echocardiogram final report has been reviewed. Not able to assess RVSP. LVEF preserved. No significant valvular heart disease. lasix stopped.
[2017-12-14] MEDS: THEOPHYLLINE 400 MG PO SCH (19:53)
[2017-12-14] MEDS: SODIUM CHLORIDE 0.9% 1,000 ML IV SCH (23:51)
[2017-12-15] MEDS: MORPHINE 2 MG/ML SYRINGE IVP PRN ×6 (01:29→18:46)
[2017-12-15] MEDS: LORazepam 2 MG/ML VIAL IVP PRN ×2 (01:30→08:12)
[2017-12-15] MEDS: ASPIRIN CHEW 81 MG TABLET PO SCH (08:15)
[2017-12-15] MEDS: ATROPINE 1% OPHTH DROPS 2 ML SL PRN (12:47)
[2017-12-15] MEDS: MORPHINE SOL 10 MG/0.5 ML SYRINGE SL PRN ×3 (12:48→17:44)
[2017-12-15] MEDS: SODIUM CHLORIDE FLUSH 0.9% 10 ML SYRINGE IVP SCH ×3 (15:30→23:46)
--- NOTE | 2017-12-15 17:24 | PROVIDER PROGRESS NOTE ---
Subjective - Prog Note Date Prog Note Date: 12/15/17 Prog Note Time: 17:22 - Subjective Subjective: she is struggling to breath and is upset that she isn't yet. "Why?" she asks. "Why can't you give me a big dose of something to make me go?" she is so tired Current Medications - Current Medications Current Medications: Active Medications Acetaminophen (Tylenol) 650 mg [place] Q4H PRN PRN Reason: Fever >101 Albuterol/Ipratropium (Duoneb) 3 ml INH RTQ4H PRN PRN Reason: Wheezing Last Admin: 12/13/17 11:15 Dose: 3 ml Aspirin ([place] Aspirin) 81 mg PO DAILY PETROS Last Admin: 12/15/17 08:15 Dose: Not Given Atropine Sulfate (Isopto Atropine 1% Ophth Drops) 2 drops SL Q2H PRN PRN Reason: Excessive Secretions Last Admin: 12/15/17 12:47 Dose: 2 drops Carboxymethylcellulose (Refresh 1% Ophth Drops) 1 drops EACHEYE QID PRN PRN Reason: Dry Eye Last Admin: 12/15/17 16:03 Dose: 1 drops Haloperidol (Haldol) 1 mg PO Q6H PRN PRN Reason: Nausea / Vomiting Haloperidol (Haldol Inj) 0.5 mg IVP Q6H PRN PRN Reason: Nausea / Vomiting Sodium Chloride (Normal Saline 0.9%) 500 mls @ 10 mls/hr IV .Q48H PRN PRN Reason: Peripheral Line Protocol Last Infusion: 12/10/17 12:23 Dose: Infused Sodium Chloride (Normal Saline 0.9%) 1,000 mls @ 20 mls/hr IV .Q48H PETROS PRN Reason: TKO Last Admin: 12/14/17 23:51 Dose: 20 mls/hr Lorazepam (Ativan Inj (Vial)) 0.5 mg IVP Q1H PRN PRN Reason: Anxiety Last Admin: 12/14/17 08:23 Dose: 0.5 mg Lorazepam (Ativan) 1 mg PO Q6H PRN PRN Reason: Anxiety/Agitation Lorazepam (Ativan Inj (Vial)) 1 mg IVP Q6H PRN PRN Reason: Anxiety/Agitation Last Admin: 12/15/17 08:12 Dose: 1 mg Morphine Sulfate (Morphine) 2 mg IVP Q2H PRN PRN Reason: Pain 8 to 10 Last Admin: 12/15/17 11:57 Dose: 2 mg Morphine Sulfate (Roxanol) 10 mg SL Q2HR PRN PRN Reason: PAIN Last Admin: 12/15/17 16:01 Dose: 10 mg Ondansetron HCl (Zofran Inj) 4 mg IVP Q6HR PRN PRN Reason: Nausea / Vomiting Last Admin: 12/10/17 09:20 Dose: 4 mg Theophylline 400mg (Cap) 1 each PO QPM [facility] Last Admin: 12/14/17 19:53 Dose: Not Given Prochlorperazine Edisylate (Compazine Inj) 10 mg IVP Q6HR PRN PRN Reason: Nausea / Vomiting Scopolamine HBr (Transderm-Scop) 1 patch TOP Q3D [facility] Last Admin: 12/13/17 01:09 Dose: 1 patch Sodium Chloride (Normal Saline Flush 0.9%) 10 ml IVP 0100,0900,1700 [facility] Last Admin: 12/15/17 15:30 Dose: Not Given Sodium Chloride (Normal Saline Flush 0.9%) 10 ml IVP PRN PRN PRN Reason: NEEDED PER PROVIDER ORDERS Last Admin: 12/14/17 21:21 Dose: 10 ml Albuterol [Ventolin Hfa] 2 puffs INH Q4H PRN 03/10/13 Multivitamin [Multivitamins] 1 tab PO DAILY 03/10/13 [place]-3 Fatty Acids/Fish Oil [[place] 3 Fish Oil Softgel] 1 each PO DAILY Aspirin Chewable [[place] Aspirin] 81 mg PO DAILY 04/29/13 Albuterol Sulfate 2.5 mg IH .BID-QID PRN 08/22/15 Budesonide [Pulmicort Flexhaler] 2 puffs IH BID 08/22/15 Olodaterol HCl [Striverdi Respimat] 2 puffs IH DAILY 08/22/15 Tiotropium [place] [Spiriva Respimat] 2 puffs IH DAILY 08/22/15 Levalbuterol [Xopenex] 1.25 mg INH QID PRN 11/08/17 Theophylline Anhydrous [Rm-24] 400 mg PO QPM 12/10/17 Zolpidem [Ambien] 10 mg PO HS PRN 12/10/17 Objective - Vital Signs/Intake & Output Reviewed Vital Signs: Yes Intake & Output: Intake & Output 12/12/17 12/13/17 12/14/17 12/15/17 23:59 23:59 23:59 23:59 Intake Total 2105.083 876.25 200 300 Output Total 5105 752 2475 1100 Balance -2999.917 124.25 -2275 -800 - Objective General Appearance: positive: Alert, Severe distress (gasping for air, gurgling respirations) Eyes Bilateral: positive: PERRL ENT: positive: Dry mucous membranes Respiratory: positive: Wheezes, Rales, Other (respiratory distress) Cardiovascular: positive: Tachycardia. negative: Gallop/S4, Friction rub Abdomen: positive: Non-tender, No organomegaly, No distention Skin: positive: Diaphoresis, Pallor Extremities: positive: Pedal edema Neurologic/Psychiatric: positive: Oriented x3, CN's nml (2-12) - Lab Results Fish Bones: 12/14/17 05:00 12/14/17 05:00 Assessment/Plan - Problem List (1) Acute on chronic respiratory failure with hypoxia and hypercapnia Impression: Patient was recently hospitalized at [facility] in [place] for 1 week requiring intubation for acute respiratory failure secondary to pneumonia and COPD exacerbation. The patient initially was recovering well but had a significant decline over the last week and a half. The patient became increasingly hypoxic, increasingly short of air, with worsening cough and increasing dyspnea with exertion. the patient was in severe respiratory distress 12/09 and required intubation on arrival of EMS. 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 She has very minimal reserve and even any mild respiratory illness will put her into respiratory failure. Patient's respiratory failure is likely combination of COPD exacerbation and likely pneumonia. Although the patient's chest x-ray is not showing any obvious infiltrate she does have a leukocytosis, tachycardia on presentation and likely does have pneumonia. was on ventilator on admit 12/09 and into next day, Day #2, and she improved. But she then extubated herself early 12/10 and has been slowly deteriorating again. While we have ordered palliative care consult, the [employer] is on vacation. We treated for COPD exacerbation with IV steroids, duo nebs and high flow O2 after she extubated herself, but she refuses BiPAP because of claustrophobia even with sedatives. Her prognosis is poor. We anticipate . She is continuing to deteriorate since extubation in spite of diuretics, steroids, abx , nebs and High flow nasal O2. She asked to be transitioned to comfort measures and daughter was supportive of that. She is on atropine drops, scopalamine, morphine and ativan. She continues to be awake enough to be frustrated and angry and fearful of all of this. She acknowledges that this is what she wants but it's a struggle for her. Will increase meds to help with anxiety again. We did it yesterday and will do it today. (2) HCAP (healthcare-associated pneumonia) Conclusion/Plan: The patient presented with acute on chronic respiratory failure and required intubation. Although the patient's chest x-ray does not show obvious infiltrate. The patient does present with leukocytosis, tachycardia, hypoxia, hypercapnia and severe respiratory failure. The patient was also recently hospitalized with pneumonia. The patient will be treated for healthcare associated pneumonia. Repeat chest xray last night shows worsening left lower lung opacity with the same chronic fibrotic opacifications bilaterally. Sputum culture was ordered on admission and so far there has been none submitted to allow narrowing of antibiotic coverage. Plan: Patient was being treated with IV vancomycin and Zosyn, and 12/13 was Day #5 for healthcare associated pneumonia given her recent hospitalization. She has not had sputum collected for culture. Blood cultures not ordered in ER or admission. Lactic acid responded to IVF resuscitation and no blood cultures ordered then. WBC did come down but still had left shift. Since her respiratory status was and is not improving, transitioned to comfort measures only.Stopped abx 12/13 (3) COPD exacerbation Conclusion/Plan: The patient has end-stage COPD and was on 4 L of oxygen at home. The patient appears to have severe emphysema and pulmonary fibrosis on her chest x-ray. She was recently hospitalized and intubated for a COPD exacerbation in the setting of pneumonia. This was her fourth time for extubation in face of respiratory failure. No improvement with abx, steroids, intubation then BiPAP, diuresis. Plan: Stopped meds for COPD and transitioned to comfort only on evening of 12/13. (4) Pulmonary hypertension Conclusion/Plan: Patient has pulmonary hypertension and right-sided heart failure according to her previous echocardiogram from 2013. The patient's PA pressure at that time was 48 mmHg I suspect that it is much worse at this time. The patient's pulmonary hypertension and right-sided heart failure is likely secondary to her severe COPD and emphysema. By 12/11 her right sided failure was worse with the fluids we gave her for hypotension on admisson and the next day. She was 11,385 cc positive by morning of 12/11. With the lasix she was 1020 negative from 12/11 to 12/12. We will have to balance need for BP support vs. diuresis. IVF were stopped and she received lasix in the top knitter hours of 12/12 and then again around 13:30 BNP was 585 this yesterday. I won't check today. Echocardiogram final report has been reviewed. Not able to assess RVSP. LVEF preserved. No significant valvular heart disease. lasix stopped.
[2017-12-15] MEDS ORDERED: LORazepam 2 MG/ML VIAL IVP PRN (17:43)
[2017-12-15] MEDS: LORazepam 0.5 MG TABLET PO PRN ×2 (17:47→18:38)
[2017-12-15] MEDS: THEOPHYLLINE 400 MG PO SCH (20:56)
[2017-12-16] MEDS: SCOPOLAMINE PATCH TOP SCH (00:40)
[2017-12-16] MEDS: SODIUM CHLORIDE FLUSH 0.9% 10 ML SYRINGE IVP PRN ×5 (00:47→23:23)
[2017-12-16] MEDS: MORPHINE 2 MG/ML SYRINGE IVP PRN ×7 (00:47→23:22)
[2017-12-16] MEDS: ATROPINE 1% OPHTH DROPS 2 ML SL PRN (09:11)
[2017-12-16] MEDS: ASPIRIN CHEW 81 MG TABLET PO SCH (09:12)
[2017-12-16] MEDS: SODIUM CHLORIDE FLUSH 0.9% 10 ML SYRINGE IVP SCH ×4 (09:13→23:56)
[2017-12-16] MEDS ORDERED: SCOPOLAMINE PATCH TOP SCH (10:00)
[2017-12-16] MEDS ORDERED: IPRATROPIUM/ALBUTEROL 3 ML NEB INH PRN (10:50)
[2017-12-16] MEDS ORDERED: FUROSEMIDE 40 MG/4 ML VIAL IVP SCH (11:00)
[2017-12-16] MEDS ORDERED: methylPREDNISolone SUCCINATE 125 MG/2 ML VIAL IVP SCH (11:00)
[2017-12-16] MEDS ORDERED: LEVALBUTEROL 1.25 MG/3 ML NEB INH PRN (13:57)
[2017-12-16] MEDS ORDERED: LEVALBUTEROL 1.25 MG INH PRN (13:59)
[2017-12-16] MEDS ORDERED: VENTOLIN INH PRN (14:17)
--- NOTE | 2017-12-16 14:20 | PROVIDER PROGRESS NOTE ---
Subjective - Prog Note Date Prog Note Date: 12/16/17 Prog Note Time: 14:18 - Subjective Subjective: After yesterday's conversation with her about her discomfort, struggle to breathe, and just miserable status, I doubled her Ativan and I doubled her morphine. Between yesterday and today she feels better. Better enough that she is thinking that maybe is not her time to and that I need to restart her nebulizers and treatment for her emphysema. Current Medications - Current Medications Current Medications: Active Medications Acetaminophen (Tylenol) 650 mg [place] Q4H PRN PRN Reason: Fever >101 Albuterol/Ipratropium (Duoneb) 3 ml INH RTQ4H PRN PRN Reason: Wheezing Last Admin: 12/13/17 11:15 Dose: 3 ml Aspirin ([place] Aspirin) 81 mg PO DAILY PETROS Last Admin: 12/16/17 09:12 Dose: 81 mg Atropine Sulfate (Isopto Atropine 1% Ophth Drops) 2 drops SL Q2H PRN PRN Reason: Excessive Secretions Last Admin: 12/16/17 09:11 Dose: 2 drops Carboxymethylcellulose (Refresh 1% Ophth Drops) 1 drops EACHEYE QID PRN PRN Reason: Dry Eye Last Admin: 12/15/17 16:03 Dose: 1 drops Haloperidol (Haldol) 1 mg PO Q6H PRN PRN Reason: Nausea / Vomiting Haloperidol (Haldol Inj) 0.5 mg IVP Q6H PRN PRN Reason: Nausea / Vomiting Levalbuterol HCl (Xopenex) 1.25 mg INH Q4H PRN PRN Reason: Shortness of Air/Wheezing Lorazepam (Ativan) 1 mg PO Q6H PRN PRN Reason: Anxiety/Agitation Last Admin: 12/15/17 18:38 Dose: 1 mg Lorazepam (Ativan Inj (Vial)) 1 mg IVP Q6H PRN PRN Reason: Anxiety/Agitation Last Admin: 12/15/17 08:12 Dose: 1 mg Lorazepam (Ativan Inj (Vial)) 2 mg IVP Q1H PRN PRN Reason: Anxiety Last Admin: 12/16/17 13:20 Dose: 2 mg Morphine Sulfate (Roxanol) 10 mg SL Q2HR PRN PRN Reason: PAIN Last Admin: 12/15/17 17:44 Dose: 10 mg Morphine Sulfate (Morphine) 4 mg IVP Q2H PRN PRN Reason: Pain 8 to 10 Last Admin: 12/16/17 13:20 Dose: 4 mg Ondansetron HCl (Zofran Inj) 4 mg IVP Q6HR PRN PRN Reason: Nausea / Vomiting Last Admin: 12/10/17 09:20 Dose: 4 mg Theophylline 400mg (Cap) 1 each PO QPM [facility] Last Admin: 12/15/17 20:56 Dose: Not Given Prochlorperazine Edisylate (Compazine Inj) 10 mg IVP Q6HR PRN PRN Reason: Nausea / Vomiting Scopolamine HBr (Transderm-Scop) 1 patch TOP Q3D [facility] Last Admin: 12/16/17 09:52 Dose: 1 patch Sodium Chloride (Normal Saline Flush 0.9%) 10 ml IVP 0100,0900,1700 [facility] Last Admin: 12/16/17 13:20 Dose: 10 ml Sodium Chloride (Normal Saline Flush 0.9%) 10 ml IVP PRN PRN PRN Reason: NEEDED PER PROVIDER ORDERS Last Admin: 12/16/17 05:55 Dose: 10 ml Albuterol [Ventolin Hfa] 2 puffs INH Q4H PRN 03/10/13 Multivitamin [Multivitamins] 1 tab PO DAILY 03/10/13 [place]-3 Fatty Acids/Fish Oil [[place] 3 Fish Oil Softgel] 1 each PO DAILY Aspirin Chewable [[place] Aspirin] 81 mg PO DAILY 04/29/13 Albuterol Sulfate 2.5 mg IH .BID-QID PRN 08/22/15 Budesonide [Pulmicort Flexhaler] 2 puffs IH BID 08/22/15 Olodaterol HCl [Striverdi Respimat] 2 puffs IH DAILY 08/22/15 Tiotropium [place] [Spiriva Respimat] 2 puffs IH DAILY 08/22/15 Levalbuterol [Xopenex] 1.25 mg INH QID PRN 11/08/17 Theophylline Anhydrous [Rm-24] 400 mg PO QPM 12/10/17 Zolpidem [Ambien] 10 mg PO HS PRN 12/10/17 Objective - Vital Signs/Intake & Output Reviewed Vital Signs: Yes Vital Signs: Vital Signs x48h Pulse Resp BP Pulse Ox 12/16/17 08:22 98 22 134/75 H 92 Intake & Output: Intake & Output 12/13/17 12/14/17 12/15/17 12/16/17 23:59 23:59 23:59 23:59 Intake Total 876.25 200 800 160 Output Total 752 2195 2400 Balance 124.25 -2275 -1600 160 - Objective General Appearance: positive: Alert, Moderate distress (Still struggling to breathe and using her rib cage and accessory muscles) Eyes Bilateral: positive: PERRL, EOMI, Other (Left sclera diffusely swollen and protuberant with edema) ENT: positive: Dry mucous membranes, Other (Dry lips) Neck: positive: No JVD. negative: Carotid bruit Respiratory: positive: Chest non-tender, Wheezes, Rales, Rhonchi, Other ( Gurgling phlegm at the base of her throat is constant) Cardiovascular: positive: Regular rate & rhythm, Tachycardia, Friction rub. negative: Gallop/S4 Abdomen: positive: Non-tender, No organomegaly, Nml bowel sounds, No distention Skin: positive: Warm, Dry, Pallor Extremities: positive: Pedal edema Neurologic/Psychiatric: positive: Oriented x3, CN's nml (2-12), Motor nml, Other (She is very diffusely weak, but amazingly enough still appropriate, and asking questions and understanding answers quite well) - Lab Results Fish Bones: 12/14/17 05:00 12/14/17 05:00 ABX Reporting Has patient been on IV antibiotics over the past 48 hours?: No Assessment/Plan - Problem List (1) Acute on chronic respiratory failure with hypoxia and hypercapnia Impression: Patient was recently hospitalized at [facility] in [place] for 1 week requiring intubation for acute respiratory failure secondary to pneumonia and COPD exacerbation. The patient initially was recovering well but had a significant decline over the last week and a half. The patient became increasingly hypoxic, increasingly short of air, with worsening cough and increasing dyspnea with exertion. the patient was in severe respiratory distress 12/09 and required intubation on arrival of EMS. 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 She has very minimal reserve and even any mild respiratory illness will put her into respiratory failure. Patient's respiratory failure is likely combination of COPD exacerbation and likely pneumonia. Although the patient's chest x-ray is not showing any obvious infiltrate she does have a leukocytosis, tachycardia on presentation and likely does have pneumonia. was on ventilator on admit 12/09 and into next day, Day #2, and she improved. But she then extubated herself early 12/10 and has been slowly deteriorating again. While we have ordered palliative care consult, the [employer] is on vacation. We treated for COPD exacerbation with IV steroids, duo nebs and high flow O2 after she extubated herself, but she refuses BiPAP because of claustrophobia even with sedatives. Her prognosis is poor. We anticipated . She continued to deteriorate after self extubation in spite of diuretics, steroids, abx, nebs and High flow nasal O2. She asked to be transitioned to comfort measures and daughter was supportive of that. She is on atropine drops, scopalamine, morphine and ativan. She continues to be awake enough to be frustrated and angry and fearful of all of this. She acknowledges that this is what she wants but it's a struggle for her.I have been steadily increasing her meds for anxiety and respiratory distress. And only one hand it it does make her feel more comfortable physically and less anxious, it is also stabilizer to the point that she actually feels better. Better enough to ask for resumption of medications. She is still interested in pursuing end-of-life care. She just does not know how she wants to do it. See conversation separate under advanced care planning note (2) HCAP (healthcare-associated pneumonia) Conclusion/Plan: The patient presented with acute on chronic respiratory failure and required intubation. Although the patient's chest x-ray does not show obvious infiltrate. The patient does present with leukocytosis, tachycardia, hypoxia, hypercapnia and severe respiratory failure. The patient was also recently hospitalized with pneumonia. The patient will be treated for healthcare associated pneumonia. Repeat chest xray last night shows worsening left lower lung opacity with the same chronic fibrotic opacifications bilaterally. Sputum culture was ordered on admission and so far there has been none submitted to allow narrowing of antibiotic coverage. Plan: Patient was being treated with IV vancomycin and Zosyn, and 12/13 was Day #5 for healthcare associated pneumonia given her recent hospitalization. She has not had sputum collected for culture. Blood cultures not ordered in ER or admission. Lactic acid responded to IVF resuscitation and no blood cultures ordered then. WBC did come down but still had left shift. Since her respiratory status was and is not improving, transitioned to comfort measures only.Stopped abx 12/13 Will not resume them at this time (3) COPD exacerbation Conclusion/Plan: The patient has end-stage COPD and was on 4 L of oxygen at home. The patient appears to have severe emphysema and pulmonary fibrosis on her chest x-ray. She was recently hospitalized and intubated for a COPD exacerbation in the setting of pneumonia. This was her fourth time for extubation in face of respiratory failure. No improvement with abx, steroids, intubation then BiPAP, diuresis. Plan: Stopped meds for COPD and transitioned to comfort only on evening of 12/13. We will resume leave albuterol specifically at her request, steroids, as well as Perforomist and Pulmicort. She has not changed her mind with regards to wanting to control symptoms and avoid intubation. (4) Pulmonary hypertension Conclusion/Plan: Patient has pulmonary hypertension and right-sided heart failure according to her previous echocardiogram from 2013. The patient's PA pressure at that time was 48 mmHg I suspect that it is much worse at this time. The patient's pulmonary hypertension and right-sided heart failure is likely secondary to her severe COPD and emphysema. By 12/11 her right sided failure was worse with the fluids we gave her for hypotension on admisson and the next day. She was 11,385 cc positive by morning of 12/11. With the lasix she was 1020 negative from 12/11 to 12/12. We will have to balance need for BP support vs. diuresis. IVF were stopped and she received lasix in the dyeing machine feeder hours of 12/12 and then again around 13:30 BNP was 585 this yesterday. I won't check today. Echocardiogram final report has been reviewed. Not able to assess RVSP. LVEF preserved. No significant valvular heart disease. lasix stopped. I will resume Lasix today
--- NOTE | 2017-12-16 14:31 | ADVANCE CARE PLANNING NOTE ---
Advance Care Planning - Date/Time Date: 12/16/17 Time: 14:26 - Purpose of encounter Text: Rediscussed how to negotiate palliative and comfort care in the context of not imminently dying - Parties in attendance Parties in attendance: Hospitalist, patient, daughter - Decisional capacity Decisional capacity of: Patient is intact in spite of morphine and Ativan. This woman is surprisingly feisty and very opinionated about this entire process - Subjective/Patient's story Subjective/Patient's story: She was admitted with acute on chronic respiratory failure, had to be intubated. She extubated herself. She is tired. This is now her fourth intubation for end-stage lung disease and she has realized that she does not want to do this anymore. She refused BiPAP, and after a few days of high flow oxygen asked for comfort measures only and we transitioned her care to comfort measures only. It has been 3 days and "why am I not yet". She says it was going to take this long, she would rather go home. We stopped all medications except for morphine, Ativan, atropine 3 days ago. She has not been on her nebulizers, steroids, or antibiotics. But she and her daughter need to discuss the logistics of what is going to happen. They all live in the same house together but it is her daughter and grandchildren. Grandchildren go to school during the day, and daughter goes to work at night. Sleeps during the day. They do not have adequate support to take care of the patient 24/ if she goes home. - Objective/Medical story Objective/Medical Story: Patient is a 67-year-old female with a past medical history significant for end- stage COPD on 4 L of home oxygen, pulmonary fibrosis, pulmonary hypertension, cor pulmonale, claustrophobia and anxiety who presented to the emergency department with chief complaint of shortness of breath. The patient was recently admitted to [facility] in [facility] on 11/08/2017 for acute respiratory failure with hypoxia and hypercapnia. At that time the patient was found to have pneumonia and a COPD exacerbation. The patient required intubation for 2-3 days and had a prolonged hospitalization over 1 week. According to the patient's daughter the patient returned home with steroids and was continued on her breathing treatments. The patient's daughter states the patient was initially improving and appeared to be getting better. She states the patient was still limited with her exertion. But she states that she was able to walk 5-10 feet without terrible difficulties. The patient however has declined significantly over the last week to 10 days. The patient' s daughter states that the patient had increasing shortness of air over the last 4-5 days. She states that over the last 4 days her mother has been basically bedbound. She states that just sitting up in bed makes her very short of breath and drops her oxygen saturation. She states that her oxygen saturation drops to the low 80s with just sitting up in bed. The patient has also been having a cough. The patient's daughter states that the patient's cough has been getting worse over the last couple of days and she has had increasing hemoptysis. The patient's daughter states that the hemoptysis is been there since her hospitalization at [place]. She states that while the patient was at [place] she self extubated and caused some trauma in her airways and has been having hemoptysis since. The patient has not had any fevers or chills, she denied any chest pain according to the patient's daughter. The patient's daughter states that the patient has not had any changes in her appetite, recent unintentional weight loss, abdominal pain, nausea, vomiting, diarrhea, constipation, or any focal neurologic deficits. The patient's oxygen saturations were as low as 71% at home when she sat up in bed and that was on 4-1/2 L of oxygen. She had significant difficulties recovering and was having severe shortness of breath and that is the point at which the patient's daughter decided to call 911. According to the patient's daughter the patient has not been having any headaches, blurred vision, runny nose, sore throat, nasal congestion, orthopnea, PND, increased lower extremity swelling, joint aches, muscle aches, joint swelling, back pain, neck stiffness, night sweats or weight loss. When paramedics arrived at the patient's home the patient was found to be in respiratory distress. She was hypoxic and using accessory muscles of breathing. The paramedics attempted to take her down a flight of stairs and the patient was so severely short of breath that she asked to be intubated. The paramedics found that the patient was declining rapidly and decided to intubate her on scene. The patient was brought to the emergency department on a ventilator. On presentation to the emergency department the patient was afebrile she was tachycardic with a heart rate in the 140s and slightly tachypneic. She was otherwise saturating well on the ventilator at 100% FiO2. The patient underwent routine lab work which showed a leukocytosis of 13.4 and a potassium of 5.3 but was otherwise unremarkable. The patient's troponin was less than 0.04 and BNP was just 147. Patient's urine showed no signs of infection. The patient did undergo a blood gas after she had been on the ventilator for some time. The patient's blood gas did show slight acidosis with hypercapnia and hypoxia. The patient also underwent a chest x-ray which revealed severe chronic lung disease similar to her prior chest x-rays with no obvious new consolidation. However given the severity of the patient's presentation and her recent hospitalization with pneumonia and elevated white blood cell count it was decided that the patient would be treated for pneumonia. The patient was admitted to the intensive care unit for acute respiratory failure with hypoxia and hypercapnia. Intubated. She has since extubated herself. She has been very angry nursing staff, respiratory therapy. Although she refused sedation, and her daughter refused sedation for her while she was intubated, the entire experience was quite traumatizing for her. She was refusing BiPAP. She only wants high flow oxygen at that time. As the day progressed she had increasingly wet lung sounds. Fast shallow respiration with increasing rhonchi. Subtle increase in PCO2 and subtle decrease in pH. Increased use of accessory muscle to struggle to breath. We had continued antibiotics, steroids, nebulizers, and added Lasix to diurese her. In spite of all of that she did not respond. She asked to be transition to comfort measures only on December 13. From that point on we have only given her comfort medications and stop her nebulizers and steroids and antibiotics. We kept the nasal cannula oxygen for comfort measures. We have been increasing her morphine and her benzodiazepine at her request because she did not feel like she was comfortable enough. Starting yesterday she started questioning whether this was her time or not. Specifically she given asking us over and over again "why am I not yet". This morning she is with gurgling phlegm at the back of her throat that is nonstop. She is using her rib cage and muscles to breathe. Sternocleidomastoid muscles again are occasionally prominent. She has bilateral crackles, rhonchi, and wheezing. In spite of that blood pressure is amazingly stable and pulses stable. She is slightly diaphoretic. The abdomen is soft, nontender. Body is edematous. - Goals of Care Goals of care determinations: She is still of the mind that she would like to be comfort measures only. She would like to go home. She does not want to go to a fpc facility. While she was interested in hospice she has been told that she will lose her house and have to sell it in order to pay for hospice. She is still firm and stating she does not want to be reintubated or resuscitated - Plan Plan: Daughter has been at the bedside for this conversation. She supports her mom's decisions. However both of them have a difficult conversation ahead for themselves. I spent 40 minutes in the room getting to this point and now the 2 of them need to decide with the logistics of going to be. The daughter works at night, there is no one at home to take care of her mother. Mom may have to go to a fpc facility in spite of both of them stating they never wanted this. I have asked for a hospice consult. I am hoping that they may be able help in guiding this family to the right place. I have resumed leave albuterol, IV steroids, and long-acting bronchodilators and steroids. I will not be resuming antibiotics and the patient is okay with that - Code Status Code Status: Do Not Attempt Resuscitation - Time Spent on Advance Care Planning Time spent on advance care plannin
[2017-12-16] MEDS: OLODATEROL INH SCH (18:47)
[2017-12-16] MEDS: THEOPHYLLINE 400 MG PO SCH (20:43)
[2017-12-16] MEDS: BUDESONIDE 180 MCG INH SCH (20:48)
[2017-12-16] MEDS: LORazepam 0.5 MG TABLET PO PRN (23:23)
[2017-12-17] MEDS: IPRATROPIUM/ALBUTEROL 3 ML NEB INH PRN ×3 (00:26→18:15)
[2017-12-17] MEDS: SODIUM CHLORIDE FLUSH 0.9% 10 ML SYRINGE IVP PRN (02:13)
[2017-12-17] MEDS: MORPHINE 2 MG/ML SYRINGE IVP PRN ×2 (02:13→10:18)
[2017-12-17] MEDS: TIOTROPIUM INH SCH (08:10)
[2017-12-17] MEDS: BUDESONIDE 180 MCG INH SCH ×2 (10:23→12:23)
[2017-12-17] MEDS: SODIUM CHLORIDE FLUSH 0.9% 10 ML SYRINGE IVP SCH ×3 (10:23→23:40)
[2017-12-17] MEDS: ASPIRIN CHEW 81 MG TABLET PO SCH (10:27)
[2017-12-17] MEDS: OLODATEROL INH SCH (12:24)
[2017-12-17] MEDS: MORPHINE SOL 10 MG/0.5 ML SYRINGE SL PRN ×5 (12:27→21:54)
--- NOTE | 2017-12-17 16:00 | PROVIDER PROGRESS NOTE ---
Assessment/Plan - Problem List (1) Acute on chronic respiratory failure with hypoxia and hypercapnia Assessment/Plan: Pt more awake and states she does want to be treated, not have comfort care. Will continue nebs, steroids. (2) COPD exacerbation Assessment/Plan: Pt states she has O2 tanks and equipment such as wheelchair at home and wants to be DC. I told her we will assess her physical needs with PT tomorrow [facility] (3) HCAP (healthcare-associated pneumonia) Assessment/Plan: Pt has been changing her mind regarding wanting full care (like the intubation she had) and just comfort care, per the stfaff. To me she states she wants treatment. Will continue management of her SOB and cough and COPD/Pulmonary fibrosis, with finishing a course of antibiotics and respiratory symptomatic treatment. (4) Pulmonary hypertension Assessment/Plan: Noted on Echo done this admission. - Current Meds Current Meds: Current Medications Generic Name Dose Route Start Last Admin Trade Name Freq PRN Reason Stop Dose Admin Albuterol/Ipratropium 3 ml 12/09/17 22:20 12/17/17 12:00 Duoneb INH 3 ml RTQ4H PRN Administration Wheezing Aspirin 81 mg 12/10/17 09:00 12/17/17 10:27 [place] Aspirin PO 81 mg DAILY PETROS Administration Atropine Sulfate 2 drops 12/12/17 08:40 12/16/17 09:11 Isopto Atropine 1% Ophth Drops SL 2 drops Q2H PRN Administration Excessive Secretions Carboxymethylcellulose 1 drops 12/13/17 11:56 12/15/17 16:03 Refresh 1% Ophth Drops EACHEYE 1 drops QID PRN Administration Dry Eye Lorazepam 1 mg 12/13/17 11:56 12/16/17 23:23 Ativan PO 1 mg Q6H PRN Administration Anxiety/Agitation Lorazepam 1 mg 12/13/17 11:56 12/15/17 08:12 Ativan Inj (Vial) IVP 1 mg Q6H PRN Administration Anxiety/Agitation Lorazepam 2 mg 12/15/17 17:43 12/16/17 13:20 Ativan Inj (Vial) IVP 2 mg Q1H PRN Administration Anxiety Morphine Sulfate 10 mg 12/13/17 11:56 12/17/17 14:26 Roxanol SL 10 mg Q2HR PRN Administration PAIN Morphine Sulfate 4 mg 12/15/17 17:43 12/17/17 10:18 Morphine IVP 4 mg Q2H PRN Administration Pain 8 to 10 Ondansetron HCl 4 mg 12/09/17 22:20 12/10/17 09:20 Zofran Inj IVP 4 mg Q6HR PRN Administration Nausea / Vomiting Theophylline 400mg 1 each 12/11/17 21:00 12/16/17 20:43 Cap PO 1 each QPM PETROS Administration Patient Own Med ( 2 each 12/16/17 21:00 12/17/17 12:23 Budesonide 180mcg) INH 2 each BID PETROS Administration Patient Own Med ( 1 each 12/17/17 09:00 12/17/17 08:10 Tiotropium 2.5mcg/ INH 1 each [place]) DAILY PETROS Administration Patient Own Med ( 2 each 12/17/17 09:00 12/17/17 12:24 Olodaterol 2.5mcg/ INH 2 each [place]) DAILY PETROS Administration Scopolamine HBr 1 patch 12/16/17 10:00 12/16/17 09:52 Transderm-Scop TOP 1 patch Q3D PETROS Administration Sodium Chloride 10 ml 12/10/17 01:00 12/17/17 10:23 Normal Saline Flush 0.9% IVP 10 ml 0100,0900,1700 PETROS Administration Sodium Chloride 10 ml 12/09/17 22:20 12/17/17 02:13 Normal Saline Flush 0.9% IVP 10 ml PRN PRN Administration NEEDED PER PROVIDER ORDERS - Lab Result Fish Bone Diagrams: 12/14/17 05:00 12/14/17 05:00 - Additional Planning My Orders: My Active Orders 12/17/17 Evaluate and Treat OT [OT] Routine Evaluate and Treat PT [PT] Routine Subjective - Subjective Patient Reports: Feeling Better, Resting Comfortably Nursing Reports: Other (Has not been OOB yet.) Objective Vital Signs: Vital Signs - 24 hr 12/17/17 12/17/17 00:26 12:00 Heart Rate 103 H 113 H Respiratory 18 19 Rate Oxygen O2 Source Nasal cannula I&O (Last 24 Hrs): Intake and Output Totals x24h 12/15/17 12/16/17 12/17/17 23:59 23:59 23:59 Intake Total 800 860 520 Output Total 1004 6533 2134 Balance -4901 -240 -0889 General: Alert, Oriented x3 HEENT: Mucous membr. moist/pink, Other (wearing oxygen per n.c.) Neck: Supple, No JVD Neuro: Non Focal Cardiovascular: Regular rate, No murmurs Respiratory: No respiratory distress, Breath sounds nml Abdomen: Soft Extremities: No edema - Results Results: Laboratory Results WBC 14.9 x10^3/uL (4.8-10.8) H 12/14/17 05:00 RBC 4.68 10^6/uL (4.20-5.40) 12/14/17 05:00 Hgb 12.6 g/dL (12.0-16.0) 12/14/17 05:00 Hct 39.5 % (37.0-47.0) 12/14/17 05:00 MCV 84.3 fL (81.0-99.0) 12/14/17 05:00 MCH 26.9 pg (27.0-31.0) L 12/14/17 05:00 MCHC 31.9 g/dL (32.0-36.0) L 12/14/17 05:00 RDW 14.5 % (12.0-15.0) 12/14/17 05:00 Plt Count 416 10^3/uL (130-450) 12/14/17 05:00 MPV 8.2 fL (7.9-10.8) 12/14/17 05:00 Neut # 11.9 10^3/uL (1.5-6.6) H 12/14/17 05:00 Lymph # 1.4 10^3/uL (1.5-3.5) L 12/14/17 05:00 [place] # 1.3 10^3/uL (0.0-1.0) H 12/14/17 05:00 Eos # 0.1 10^3/uL (0.0-0.7) 12/14/17 05:00 Baso # 0.1 10^3/uL (0.0-0.1) 12/14/17 05:00 Absolute Nucleated RBC 0.02 x10^3/uL 12/14/17 05:00 Total Counted 100 12/13/17 04:30 Band Neuts % (Manual) Not Reportable 12/14/17 05:00 Abnorm Lymph % (Manual) Not Reportable 12/14/17 05:00 Nucleated RBC % 0.1 /100WBC 12/14/17 05:00 Neutrophils # (Manual) Not Reportable 12/14/17 05:00 Lymphocytes # (Manual) Not Reportable 12/14/17 05:00 Monocytes # (Manual) Not Reportable 12/14/17 05:00 Eosinophils # (Manual) Not Reportable 12/14/17 05:00 Basophils # (Manual) Not Reportable 12/14/17 05:00 Differential Comment MANUAL=AUTO DIFF 12/14/17 05:00 Manual Slide Review Indicated 12/09/17 22:00 WBC Morphology NORMAL APPEARANCE (NORMAL) 12/09/17 22:00 Platelet Estimate NORMAL (130-450,000) (NORMAL) 12/14/17 05:00 Platelet Morphology NORMAL APPEARANCE (NORMAL) 12/14/17 05:00 RBC Morph Micro Appear NORMAL APPEARANCE (NORMAL) 12/14/17 05:00 Bld Gas Analysis Time 1128 12/11/17 11:17 Sample Site LEFT RADIAL 12/11/17 11:17 ABG pH 7.29 (7.35-7.45) L 12/11/17 11:17 ABG pCO2 58 mmHg (34-45) H 12/11/17 11:17 ABG pO2 75 mmHg (80-100) L 12/11/17 11:17 ABG HCO3 27.3 mmol/L (22.0-26.0) H 12/11/17 11:17 ABG Total CO2 29.0 MMOL/L (21.0-29.0) 12/11/17 11:17 ABG O2 Saturation 95 % (94-98) 12/11/17 11:17 ABG Oximetry Spot Check 99 % 12/10/17 05:10 ABG Base Excess -0.3 mmol/L (-2.0-3.0) 12/11/17 11:17 Dae Test NEGATIVE 12/11/17 11:17 Respiration Rate 20 b/min 12/10/17 16:58 O2 Delivery Device OXYMASK 12/11/17 11:17 O2 Liters/Min 5.00 LPM 12/11/17 11:17 Vent Mode SIMV 12/10/17 16:58 FiO2 50.00 12/10/17 16:58 Tidal Volume 400 mL 12/10/17 16:58 PEEP 5 cmH2O 12/10/17 16:58 Pressure Support Vent 12 cmH2O 12/10/17 16:58 Sodium 139 mmol/L (135-145) 12/14/17 05:00 Potassium 3.5 mmol/L (3.5-5.0) 12/14/17 05:00 Chloride 92 mmol/L (101-111) L 12/14/17 05:00 Carbon Dioxide 37 mmol/L (21-32) H 12/14/17 05:00 Anion Gap 10.0 (6-13) 12/14/17 05:00 BUN 22 mg/dL (6-20) H 12/14/17 05:00 Creatinine 0.5 mg/dL (0.4-1.0) 12/14/17 05:00 Estimated GFR (MDRD) 123 (>89) 12/14/17 05:00 Glucose 92 mg/dL (70-100) 12/14/17 05:00 Lactic Acid 1.8 mmol/L (0.5-2.2) 12/10/17 17:12 Calcium 8.4 mg/dL (8.5-10.3) L 12/14/17 05:00 Phosphorus 2.2 mg/dL (2.5-4.6) L 12/14/17 05:00 Magnesium 2.2 mg/dL (1.7-2.8) 12/14/17 05:00 Total Bilirubin 0.9 mg/dL (0.2-1.0) 12/14/17 05:00 AST 40 IU/L (10-42) 12/14/17 05:00 ALT 44 IU/L (10-60) 12/14/17 05:00 Alkaline Phosphatase 58 IU/L (42-121) 12/14/17 05:00 Troponin I 0.10 ng/mL (<0.49) 12/10/17 17:12 B-Natriuretic Peptide 585 pg/mL (5-100) H 12/12/17 04:15 Total Protein 6.0 g/dL (6.7-8.2) L 12/14/17 05:00 Albumin 3.0 g/dL (3.2-5.5) L 12/14/17 05:00 Globulin 3.0 g/dL (2.1-4.2) 12/14/17 05:00 Albumin/Globulin Ratio 1.0 (1.0-2.2) 12/14/17 05:00 Lipase 15 U/L (22-51) L 12/09/17 22:46 Urine Color YELLOW 12/09/17 22:24 Urine Clarity CLEAR (CLEAR) 12/09/17 22:24 Urine pH 5.5 PH (5.0-7.5) 12/09/17 22:24 Ur Specific [place] >=1.030 (1.002-1.030) H 12/09/17 22:24 Urine Protein 30 mg/dL (NEGATIVE) H 12/09/17 22:24 Urine Glucose (UA) NEGATIVE mg/dL (NEGATIVE) 12/09/17 22:24 Urine Ketones NEGATIVE mg/dL (NEGATIVE) 12/09/17 22:24 Urine Occult Blood NEGATIVE (NEGATIVE) 12/09/17 22:24 Urine Nitrite NEGATIVE (NEGATIVE) 12/09/17 22:24 Urine Bilirubin NEGATIVE (NEGATIVE) 12/09/17 22:24 Urine Urobilinogen 0.2 (NORMAL) E.U./dL (NORMAL) 12/09/17 22:24 Ur Leukocyte Esterase NEGATIVE (NEGATIVE) 12/09/17 22:24 Urine RBC None Seen /HPF (0-5) 12/09/17 22:24 Urine WBC 0-3 /HPF (0-5) 12/09/17 22:24 Ur Squamous Epith Cells RARE Squamous (<= Few) 12/09/17 22:24 Amorphous Sediment Moderate /LPF 12/09/17 22:24 Urine Bacteria Rare /HPF (None Seen) 12/09/17 22:24 Urine Casts 11-25 Hyaline Casts /LPF 12/09/17 22:24 Urine Mucus Moderate Strands 12/09/17 22:24 Urine Culture Comments NOT INDICATED 12/09/17 22:24 Last Dose Date UNK 12/12/17 00:25 Last Dose Time UNK 12/12/17 00:25 Vancomycin Trough 12.7 ug/mL (5.0-15.0) 12/12/17 00:25 - Procedures Procedures: Procedures ASSISTANCE WITH RESPIRATORY VENTILATION, <24 HRS, CPAP (08/21/15) CATARAC PHACOEMULS/ASPIR (04/29/13) CONTINUOUS INVASIVE MECHANICAL VENTILATION <96 CONSEC HRS (06/07/13) IMPLANTED LENS REMOVAL (04/08/13) INSERT INFUSION DEV IN R INT JUGULAR VEIN, PERC (08/21/15) INSERT LENS AT CATAR EXT (04/29/13) INSERTION OF ENDOTRACHEAL AIRWAY INTO TRACHEA, VIA OPENING (08/21/15) INSERTION OF FEEDING DEVICE INTO STOMACH, VIA OPENING (08/21/15) NON-INVASIVE MECHANICAL VENTILATION (06/07/13) RESPIRATORY VENTILATION, 24-96 CONSECUTIVE HOURS (08/21/15) SECONDARY INSERT LENS (04/08/13) ABX Reporting Has patient been on IV antibiotics over the past 48 hours?: Yes
[2017-12-17] MEDS: THEOPHYLLINE 400 MG PO SCH (20:05)
[2017-12-17] MEDS: LORazepam 0.5 MG TABLET PO PRN (23:38)
[2017-12-18] MEDS: MORPHINE SOL 10 MG/0.5 ML SYRINGE SL PRN ×4 (00:12→13:48)
[2017-12-18] MEDS: OLODATEROL INH SCH (06:41)
[2017-12-18] MEDS: BUDESONIDE 180 MCG INH SCH (06:41)
[2017-12-18] MEDS: TIOTROPIUM INH SCH (06:49)
[2017-12-18] MEDS ORDERED: SENNA 8.6 MG TABLET PO SCH (09:00)
[2017-12-18] MEDS ORDERED: SACCHAROMYCES BOULARDII 250 MG CAPSULE PO SCH (09:00)
[2017-12-18] MEDS ORDERED: AZITHROMYCIN 250 MG TABLET PO SCH (09:00)
[2017-12-18] MEDS ORDERED: AMOX/CLAV 875 MG/125 MG TABLET PO SCH (09:00)
[2017-12-18] MEDS ORDERED: guaiFENesin 600 MG TABLET PO SCH (09:00)
[2017-12-18] MEDS ORDERED: DOCUSATE SODIUM 250 MG CAPSULE PO SCH (09:00)
[2017-12-18] MEDS ORDERED: POLYETHYLENE GLYCOL 3350 17 GM PACKET PO SCH (09:00)
[2017-12-18] MEDS: ASPIRIN CHEW 81 MG TABLET PO SCH (09:11)
[2017-12-18] MEDS: SODIUM CHLORIDE FLUSH 0.9% 10 ML SYRINGE IVP SCH (09:14)
--- NOTE | 2017-12-18 12:57 | Discharge Plan ---
Discharge Plan Disposition: 01 Home, Self Care Condition: Poor Prescriptions: Amox/Clav 875/125 [Augmentin 875/125] 1 tab PO BID #8 tablet Azithromycin [Zithromax] 250 mg PO BID #8 tablet guaiFENesin [Mucinex] 600 mg PO BID #28 tablet Methylprednisolone [Medrol] 4 mg PO DAILY #1 pkt Diet: Regular Activity Restrictions: Activity as Tolerated Shower Restrictions: No Additional Instructions or Follow Up instructions: Resume all your pre-hospital medications and inhalers. Take the 2 different antibiotics for 4 more days (until the pills are done). Take the steroid (Medrol dose marli) on the titrating down schedule, until done, Take the cough expectorant Mucinex for 14 more days. See your doctor in 1-2 weeks in follow-up. No Smoking: If you smoke, Please STOP! Call for help. Follow-up with: Eric Leslie MD [Primary Care Provider] -
[2017-12-18] MEDS: ONDANSETRON 4 MG/2 ML VIAL IVP PRN (13:22)
[2017-12-18 13:53] VITALS: BP 120/60
--- NOTE | 2017-12-19 06:32 | DISCHARGE SUMMARY ---
Physician: Eleanor Roman MD DATE OF ADMISSION: 12/09/2017 DATE OF DISCHARGE: 12/18/2017 HISTORY OF PRESENT ILLNESS: This is a 67-year-old white female with a history of severe COPD/chronic bronchitis, recent hospitalization for pneumonia requiring a ventilator at another hospital, was discharged home and worsened over 4 days, becoming so weak that she was bedbound and then short of breath with oxygenations in the low 80% at rest. The patient presented to the emergency room and was found to be in severe respiratory distress and admitted for COPD exacerbation and healthcare- associated pneumonia. HOSPITAL COURSE AND DISCHARGE DIAGNOSES 1. COPD. Patient required nebulizers, steroids, supplemental oxygen and eventually intubation. Some time later, she self-extubated herself, was dyspneic, had copious, occaisionally bloody sputum production, but did eventually stabilize at rest wearing nasal cannula supplemental oxygen. The patient reported that she had oxygen tanks at home. She was advised that she needed further management of her COPD exacerbation and was felt to be a candidate for a new Trilogy mask. The patient had blood gases with oxygen saturations that were below 80%, significant CO2 retention of over 60 and requires daytime and nocturnal ventilation. Home BIPAP is insufficient due to her severe COPD with pulmonary fibrosis, which is the primary cause of her hypercapnia and chronic respiratory failure. The patient is interested in starting this with management at home, and was discharged with Trilogy ordered. 2. Healthcare-associated pneumonia. The patient was started on IV antibiotics. After her extubation, she told her provider that she no longer wanted any care, wanted to have comfort care. Therefore, her antibiotics were discontinued as well as her steroid management, and she was placed on scopolamine patch and other p.r.n. medications for comfort. She requested a Hospice evaluation and was seen by Dr Oconnor, who stated that she was not a Hospice candidate yet as she was not imminently dieing. Following this, she stated that she wanted to be a FULL CODE, and have full medical management for all medical conditions. Her antibiotics were restarted orally as well as oral steroids. Physical Therapy was ordered before discharge and she refused on 2 attempts at PT evaluation and rehab and refused discharge to a SNF for rehab. She refused to be helped out of bed into a chair by PT and nursing and claimed that her daughter and teenage grandchild could help her at home with all her needs. The daughter confirmed that. She again expressed her wishes regarding Code Status to be a DNR, but she made it clear that she did want intubation if needed in the future. The patient was discharged home to complete a course of antibiotics, she was restarted on her inhalers, a Medrol Dosepak was ordered for a taper of steroids and oxygen 24/7 was ordered. 3. Pulmonary hypertension and history of Pulmonary Fibrosis. The patient underwent an Echo during this hospitalization, which showed normal LV size and contractility, the right ventricle also had normal size and contractility; however, no accurate PA pressure could be calculated. The patient was counseled regarding having a Nuclear Equipment Test Engineer. She reported that she previously had a Nuclear Equipment Test Engineer, first in [place], then in [place], [place] but that person moved away and she has not restarted with anyone. ALLERGIES 1. BARLEY. 2. CORN. 3. OATS. 4. PROPOFOL. 5. RICE. 6. WHEAT. DISCHARGE MEDICATIONS 1. Mucinex 600 b.i.d. 2. Ambien 10 mg at bedtime p.r.n. insomnia. 3. Spiriva Respimat. 4. Theophylline 400 mg every evening. 5. Zofran 4 mg q.8 hours. 6. [place]-3 orally daily. 7. Multivitamin daily. 8. Morphine liquid 10 mg every 12 hours p.r.n. dyspnea. 9. Medrol Dosepak with a standard taper schedule. 10. Xopenex inhaler q.i.d. p.r.n. 11. Pulmicort Flexhaler 2 puffs inhaler scheduled b.i.d. 12. Zithromax 250 b.i.d. for 4 more days. 13. Augmentin 875/125 b.i.d. for 4 more days. 14. Baby aspirin daily. 15. Ventolin HFA 2 puffs q.4 hours p.r.n. 16. Albuterol sulfate b.i.d. or q.i.d. p.r.n. PHYSICAL EXAMINATION AT DISCHARGE VITAL SIGNS: Blood pressure 114/62, heart rate of 100-110, afebrile. HEENT: Revealed moist oral mucosa. She had a wet cough that was nonproductive , she was able to suction herself using the equipment at her bedside, and it was blood tinged. NECK: Without JVD or carotid bruits. CHEST: Scattered wheezes. Good air movement. Increased AP diameter. CARDIAC: Heart sounds normal. No audible murmurs. ABDOMEN: Soft with normal bowel sounds. EXTREMITIES: No clubbing, cyanosis or edema. NEUROLOGIC: Intact. LABORATORY AND IMAGING: Reviewed and summarized above. CODE STATUS: DNR, but the patient does want to be intubated. FOLLOWUP: With her PCP in 1-2 weeks. Time required to complete the entire discharge, ordering of medications, dictation: 80 minutes. TD: 12/18/2017 19:35 PAVITHRA
== END 2017-12-18 14:46 | disposition home or self-care (01) | DRG 208 ==
LOC: EDUNIT# → ED 21:55 → ICU 22:21 → MS3 12-13 14:26
PROVIDERS: ADMIT Internal Medicine; ATTEND Internal Medicine
PROC: 5A1945Z Respiratory Ventilation, 24-96 Consecutive Hours (ICD-10-PCS; principal; 2017-12-09)
DX: J96.91 Respiratory failure, unspecified with hypoxia (principal); J44.9 Chronic obstructive pulmonary disease, unspecified; I27.20 Pulmonary hypertension, unspecified; J96.21 Acute and chronic respiratory failure with hypoxia; J18.9 Pneumonia, unspecified organism; J44.1 Chronic obstructive pulmonary disease with (acute) exacerbation; E87.2 Acidosis; J44.0 Chronic obstructive pulmonary disease with (acute) lower respiratory infection; J96.22 Acute and chronic respiratory failure with hypercapnia; Y95 Nosocomial condition; I27.23 Pulmonary hypertension due to lung diseases and hypoxia; I27.81 Cor pulmonale (chronic); J84.10 Pulmonary fibrosis, unspecified; F41.9 Anxiety disorder, unspecified; F40.240 Claustrophobia; I95.9 Hypotension, unspecified; E66.3 Overweight; Z66 Do not resuscitate; Z51.5 Encounter for palliative care; Z99.81 Dependence on supplemental oxygen; Z74.01 Bed confinement status; Z87.891 Personal history of nicotine dependence; Z78.1 Physical restraint status; Z68.28 Body mass index [BMI] 28.0-28.9, adult
CPT/HCPCS: 36415; 36600; 51702; 71045; 80048; 80053; 81001; 82803; 83605; 83690; 83735; 83880; 84100; 84484; 85025; 87086; 87150; 93005; 93306; 94002; 94003; 94640; 94770; 96374; 96375; 99284; 99291

== ENCOUNTER 2017-12-18 15:43 | Inpatient (IN) | payer MEDICARE, OTHER ==
--- NOTE | 2017-12-18 15:49 | ED Physician Documentation ---
PD HPI DYSPNEA - Stated complaint Stated Complaint: SOA - History obtained from History obtained from: Patient, Family - History of Present Illness Timing - onset: How many minutes ago (10-15 minutes ago, she was being discharged from hospital with pneumonia and COPD and was wheeling to car with oxygen by [place]. She got markedly dyspneic, pale and got much less responsive. May have briefly passed out. Rapid response to the parking lot and she was found to have sats 50-70s% which improved with higher flow oxygen. Brought into ED pale and less responsive still, but improved with oxygen FM and nebulizer treatment.) , Today Timing - onset during: Light activity Timing - duration: Minutes Timing - details: Abrupt onset Inciting event(s): Immobilization/travel (she has been in the hospital for several days.). 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) Respiratory: COPD, Other (Pulmonary fibrosis, pulmonary hypertension) Endocrine/Autoimmune: HyPOthyroidism GI: None CAREER DISCOVERY TEACHER: None : None HEENT: None Psych: Claustrophobia Musculoskeletal: Osteoarthritis Derm: None - Past Surgical History Past Surgical History: Yes General: Appendectomy Ortho: Shoulder arthroplasty /CAREER DISCOVERY TEACHER: Hysterectomy HEENT: Cataracts, Tonsil/Adenoidectomy - Present Medications Home Medications: Ambulatory Orders Medication Instructions Recorded Confirmed Albuterol [Ventolin Hfa] 2 puffs INH Q4H PRN 03/10/13 12/10/17 Multivitamin [Multivitamins] 1 tab PO DAILY 03/10/13 12/10/17 [place]-3 Fatty Acids/Fish Oil 1 each PO DAILY 03/10/13 12/10/17 [[place] 3 Fish Oil Softgel] Aspirin Chewable [[place] 81 mg PO DAILY 04/29/13 08/21/15 Aspirin] Albuterol Sulfate 2.5 mg IH .BID-QID PRN 08/22/15 08/22/15 Budesonide [Pulmicort Flexhaler] 2 puffs IH BID 08/22/15 12/10/17 Olodaterol HCl [Striverdi Respimat] 2 puffs IH DAILY 08/22/15 12/10/17 Tiotropium [place] [Spiriva 2 puffs IH DAILY 08/22/15 12/10/17 Respimat] Levalbuterol [Xopenex] 1.25 mg INH QID PRN 11/08/17 12/10/17 Theophylline Anhydrous [Rm-24] 400 mg PO QPM 12/10/17 12/10/17 Zolpidem [Ambien] 10 mg PO HS PRN 12/10/17 12/10/17 Amox/Clav 875/125 [Augmentin 1 tab PO BID #8 tablet 12/18/17 875/125] Azithromycin [Zithromax] 250 mg PO BID #8 tablet 12/18/17 Methylprednisolone [Medrol] 4 mg PO DAILY #1 pkt 12/18/17 Morphine Sulfate [Morphine Sulf 10 mg PO Q12H PRN #5 ml 12/18/17 Oral (Roxanol)] Ondansetron HCl [Zofran] 4 mg PO Q8H #10 tablet 12/18/17 guaiFENesin [Mucinex] 600 mg PO BID #28 tablet 12/18/17 - Allergies Allergies/Adverse Reactions: Allergies Allergy/AdvReac Type Severity Reaction Status Date / Time barley AdvReac Respiratory Verified 08/26/15 07:17 corn AdvReac Respiratory Verified 08/26/15 07:19 oats AdvReac Respiratory Verified 08/26/15 07:19 propofol AdvReac Unknown Verified 12/10/17 00:12 rice AdvReac Respiratory Verified 08/26/15 07:19 wheat AdvReac Respiratory Verified 08/26/15 07:19 - Social History Does the pt smoke?: No Smoking Status: Never smoker Does the pt drink ETOH?: No Does the pt have substance abuse?: No - Immunizations Immunizations are current?: Yes - POLST Patient has POLST: No POLST Status: Full Code PD ED PE NORMAL - Vitals Vital signs reviewed: Yes - General General: Well developed/nourished. No: Alert and oriented X 3 (confused and dyspneic) - HEENT HEENT: Pharynx benign, Other (good gag reflex.) - Neck Neck: Supple, no meningeal sign, No adenopathy - Cardiac Cardiac: RRR (tachycardic), No murmur - Respiratory Respiratory: No: Clear bilaterally (coarse sounds left particularly. Diffuse wheezing. ) - Abdomen Abdomen: Soft, Non tender - Derm Derm: Warm and dry. No: Normal color (pallor) - Extremities Extremities: No tenderness to palpate, Normal ROM s pain, No calf tenderness / cord, Other (1+ edema in both legs. ) - Neuro Neuro: No motor deficit Results - Vitals Vitals: Vital Signs - 24 hr 12/18/17 12/18/17 12/18/17 15:50 16:00 16:15 Temperature 36.5 C Heart Rate 110 H 112 H 108 H Respiratory 16 13 14 Rate Blood Pressure 114/62 O2 Saturation 95 12/18/17 17:24 Temperature 36.4 C L Heart Rate 106 H Respiratory 13 Rate Blood Pressure 118/58 L O2 Saturation 92 Oxygen O2 Source Room air Oxygen Flow Rate 6 - EKG (time done) 15:42 Rate: Rate (enter#) (109) Rhythm: Sinus tachycardia [place]: Normal Intervals: Normal CO QRS: Normal Ischemia: Normal ST segments. No: ST elevation c/w ischemia, ST depression - Labs Labs: Laboratory Tests 12/18/17 12/18/17 12/18/17 15:45 15:45 15:45 WBC 21.6 H RBC 4.77 Hgb 13.2 Hct 40.5 MCV 84.8 MCH 27.7 MCHC 32.7 RDW 14.9 Plt Count 373 MPV 8.2 Neut # Not Reportable Lymph # Not Reportable [place] # Not Reportable Eos # Not Reportable Baso # Not Reportable Absolute Nucleated RBC Not Reportable Total Counted 100 Band Neuts % (Manual) 3 Abnorm Lymph % (Manual) 0 Nucleated RBC % Not Reportable Neutrophils # (Manual) 16.8 H Lymphocytes # (Manual) 0.9 L Monocytes # (Manual) 1.7 H Eosinophils # (Manual) 2.2 H Basophils # (Manual) 0.0 Manual Slide Review Indicated Platelet Estimate NORMAL (130-450,000) Platelet Morphology NORMAL APPEARANCE RBC Morph Micro Appear NORMAL APPEARANCE D-Dimer > 1050.0 H Sodium 137 Potassium 3.7 Chloride 89 L Carbon Dioxide 36 H Anion Gap 12.0 BUN 6 Creatinine 0.5 Estimated GFR (MDRD) 123 Glucose 173 H Calcium 9.3 Total Bilirubin 1.0 AST 40 ALT 46 Alkaline Phosphatase 70 B-Natriuretic Peptide Total Protein 6.6 L Albumin 3.2 Globulin 3.4 Albumin/Globulin Ratio 0.9 L Lipase 14 L 12/18/17 15:45 WBC RBC Hgb Hct MCV MCH MCHC RDW Plt Count MPV Neut # Lymph # [place] # Eos # Baso # Absolute Nucleated RBC Total Counted Band Neuts % (Manual) Abnorm Lymph % (Manual) Nucleated RBC % Neutrophils # (Manual) Lymphocytes # (Manual) Monocytes # (Manual) Eosinophils # (Manual) Basophils # (Manual) Manual Slide Review Platelet Estimate Platelet Morphology RBC Morph Micro Appear D-Dimer Sodium Potassium Chloride Carbon Dioxide Anion Gap BUN Creatinine Estimated GFR (MDRD) Glucose Calcium Total Bilirubin AST ALT Alkaline Phosphatase B-Natriuretic Peptide 67 Total Protein Albumin Globulin Albumin/Globulin Ratio Lipase - Rads (name of study) chest Radiology: Prelim report reviewed, EMP read contemporaneously PD MEDICAL DECISION MAKING - ED course Complexity details: reviewed results, re-evaluated patient (patient improved with oxygen FM briefly and then returned to [place], along with neb treatment. It would seem she is not quite good for discharge though. Talked with Hospitalist who came to talk with patient and will discuss re-hospitalization vs. home. ), considered differential, d/w patient Departure - Departure Disposition: 66 [facility] DC/Xfer Clinical Impression: Severe chronic obstructive pulmonary disease, COPD exacerbation, Syncope and collapse Dyspnea Qualifiers: Dyspnea type: dyspnea on exertion Qualified Code(s): R06.09 - Other forms of dyspnea Pneumonia Qualifiers: Pneumonia type: due to unspecified organism Condition: Stable Record reviewed to determine appropriate education?: Yes Discharge Date/Time: 12/18/17 19:56
[2017-12-18] MEDS ORDERED: DEXAMETHASONE 10 MG/ML VIAL IVP STA (15:52)
[2017-12-18 16:00] LABS: BASOPHILS % (AUTO) 0.2 %; EOSINOPHILS % (AUTO) 7.9 %; HGB - HEMOGLOBIN 13.2 g/dL (12.0-16.0); LYMPHOCYTES % (AUTO) 5.4 %; MEAN CORPUSCULAR HEMOGLOBIN 27.7 pg (27.0-31.0); MEAN CORPUSCULAR HGB CONC 32.7 g/dL (32.0-36.0); MEAN CORPUSCULAR VOLUME 84.8 fL (81.0-99.0); MEAN PLATELET VOLUME 8.2 fL (7.9-10.8); MONOCYTES % (AUTO) 3.6 %; NEUTROPHILS % (AUTO) 82.9 %; PLT - PLATELET COUNT 373 10^3/uL (130-450); RED BLOOD COUNT 4.77 10^6/uL (4.20-5.40); RED CELL DISTRIBUTION WIDTH 14.9 % (12.0-15.0); WHITE BLOOD COUNT 21.6 x10^3/uL (4.8-10.8)
[2017-12-18] MEDS: IPRATROPIUM/ALBUTEROL 3 ML NEB INH STA ×2 (16:03)
[2017-12-18 16:06] LABS: ABNORMAL LYMPHS % (MANUAL) 0 %
[2017-12-18] MEDS ORDERED: IPRATROPIUM/ALBUTEROL 3 ML NEB INH STA (16:14)
--- NOTE | 2017-12-18 16:37 | XRAY Preliminary Report ---
Exam: XR CHEST 1 VIEW X-RAY IMPRESSION: Improving consolidation in the left mid and lower lung remains concerning for aspiration/ pneumonia superimposed upon chronic lung disease with similar small left pleural effusion. [facility] SITE ID: [id number]
--- NOTE | 2017-12-18 16:41 | XRAY Report ---
EXAM: CHEST RADIOGRAPHY EXAM DATE: 12/18/2017 04:07 PM. CLINICAL HISTORY: Acute dyspnea. COMPARISON: Multiple prior chest radiographs, most recently 12/12/2017 and most remotely 05/30/2009. TECHNIQUE: 1 view. FINDINGS: Lungs/Pleura: Hyperexpanded lungs with coarse lung markings and extensive fibrotic changes, left much greater than right as before. There is improving consolidation in the left mid and lower lung since recent prior exam, though worsened compared to 11/08/2017 exam. No focal consolidation in the right l maria guadalupe. There is a probable small left pleural effusion as before. No significant right pleural effusion . No pneumothorax. Mediastinum: Within exam limitations, the cardiomediastinal contour is unchanged with normal heart si ze and similar left hilar fullness. Pulmonary vasculature appears within normal limits. Other: None. IMPRESSION: Improving consolidation in the left mid and lower lung remains concerning for aspiration/ pneumonia superimposed upon chronic lung disease with similar small left pleural effusion. [facility] Referring Provider Line: [phone] SITE ID: [id number]
[2017-12-18 16:49] LABS: ALBUMIN 3.2 g/dL (3.2-5.5); ALBUMIN/GLOBULIN RATIO 0.9 (1.0-2.2); CALCIUM 9.3 mg/dL (8.5-10.3); CREATININE 0.5 mg/dL (0.4-1.0); TOTAL PROTEIN 6.6 g/dL (6.7-8.2)
[2017-12-18 18:04] LABS: BAND NEUTROPHILS % (MANUAL) 3 %; EOSINOPHILS # (MANUAL) 2.2 10^3/uL (0-0.7); LYMPHOCYTES # (MANUAL) 0.9 10^3/uL (1.5-3.5); LYMPHOCYTES % (MANUAL) 4 %; MONOCYTES # (MANUAL) 1.7 10^3/uL (0.0-1.0); NEUTROPHILS # (MANUAL) 16.8 10^3/uL (1.5-6.6); NEUTROPHILS % (MANUAL) 75 %
[2017-12-18 18:05] LABS: PLATELET ESTIMATE, MANUAL NORMAL (130-450,000) (NORMAL); PLATELET MORPHOLOGY NORMAL APPEARANCE (NORMAL); RBC MORPHOLOGY (MULTIPLE) NORMAL APPEARANCE (NORMAL)
[2017-12-18] MEDS ORDERED: ACETAMINOPHEN 325 MG TABLET PO PRN (18:56)
[2017-12-18] MEDS ORDERED: PROCHLORPERAZINE 10 MG/2 ML VIAL IVP PRN (18:56)
[2017-12-18] MEDS ORDERED: ALBUTEROL NEB 2.5 MG/3 ML INH PRN (19:06)
[2017-12-18] MEDS: MORPHINE 2 MG/ML SYRINGE IVP PRN ×2 (20:19→23:48)
[2017-12-18] MEDS: SODIUM CHLORIDE FLUSH 0.9% 10 ML SYRINGE IVP PRN ×2 (20:20→22:21)
[2017-12-18] MEDS: guaiFENesin/CODEINE 5 ML UDC PO SCH (20:27)
[2017-12-18] MEDS ORDERED: LEVALBUTEROL 1.25 MG INH SCH (21:00)
[2017-12-18] MEDS ORDERED: THEOPHYLLINE ANHYDROUS 400 MG PO SCH (21:00)
[2017-12-18] MEDS ORDERED: ALBUTEROL NEB 2.5 MG/3 ML INH SCH (21:00)
[2017-12-18] MEDS ORDERED: BUDESONIDE 180MCG FLEXHALER INH SCH (21:00)
[2017-12-18] MEDS: guaiFENesin 600 MG TABLET PO SCH (21:56)
[2017-12-18] MEDS: AMOX/CLAV 875 MG/125 MG TABLET PO SCH (21:56)
[2017-12-18] MEDS: methylPREDNISolone SUCCINATE 40 MG/ML VIAL IVP SCH (22:20)
[2017-12-18] MEDS: MORPHINE SOL 10 MG/0.5 ML SYRINGE PO PRN (22:21)
[2017-12-18] MEDS: AZITHROMYCIN 250 MG TABLET PO SCH (22:22)
--- NOTE | 2017-12-18 22:25 | HISTORY & PHYSICAL EXAMINATION ---
DATE OF SERVICE: 12/18/2017 Physician: Eleanor Roman MD HISTORY OF PRESENT ILLNESS: This is a 67-year-old white female with a history of chronic bronchitis/COPD, pulmonary hypertension, on oxygen at home, admitted several weeks ago at an outside facility for pneumonia requiring a ventilator, admitted here 8 days ago with respiratory distress requiring ventilator treatment, treated for healthcare- associated pneumonia. The patient stated that she did not want to be transferred to a fdc facility for strengthening such as PT. The patient had refused working with PT while here and the most she did was dangle, sitting on the side of the bed. She claimed that she could get up to a chair and her daughter was able to do everything for her at home and the patient felt that her immediate family; her daughter, 2 grandchildren, were equipped to handle her needs. She was discharged earlier today to complete of a course of oral antibiotics, a steroids taper with Medrol dose Kahlil, liquid morphine p.r.n. dyspnea, Zofran p.r.n., and to resume all of her multiple inhalers and oral theophylline. The patient's daughter picked her up, and using her home oxygen tank via nasal cannula, she was being transferred into the car of the daughter where the patient experienced severe shortness of breath with the activity of moving from the wheelchair to the car. The family member requested that a saturation be performed because the mother appeared very short of breath. There was report by onlookers that the patient had possible syncope for approximately 30 seconds. She was stabilized and brought to the emergency room where she was found to have a saturation in the 70% range. She was awake and alert and coughing, and appeared short of breath. She received a nebulizer treatment, steroid treatment and the ER doctor asked if she wanted to continue with the plan to be discharged home from the earlier order and the patient stated that she felt like she was too short of breath to go home. The patient tells me that she does want more treatment for her respiratory condition. The patient is being admitted for further management of her respiratory distress. MEDICATIONS: Medications which have not yet been filled from the discharge that was ordered just approximately 3 hours previously are: 1. Mucinex 600 b.i.d. 2. Ambien 10 mg p.r.n. insomnia. 3. Spiriva Respimat. 4. Theophylline 400 mg every evening. 5. Zofran 4 mg q.8h. p.r.n. nausea. 6. [place] 3 fatty acid daily. 7. Striverdi Respimat 2 puffs b.i.d. 8. Multivitamin daily. 9. Morphine sulfate 10 mg orally q.12h. p.r.n. dyspnea. 10. Medrol Dosepak with a standard taper over several days. 11. Xopenex inhalation q.i.d. 12. Pulmicort Flexhaler 2 puffs b.i.d. 13. Zithromax 250 b.i.d. for 4 more days. 14. Augmentin 875/125 b.i.d. for 4 more days. 15. Baby aspirin daily. 16. Ventolin HFA inhaler q.4h. p.r.n. 17. Albuterol sulfate 2.5 inhalation b.i.d. to q.i.d. p.r.n. FAMILY HISTORY: No inherited diseases. SOCIAL HISTORY: The patient is a nonsmoker, drinks no alcohol. She lives with her daughter and 2 grandchildren. Patient's activity at her best is walking with a front- wheeled walker and she does have a wheelchair at home. PHYSICAL EXAMINATION GENERAL: Elderly white female. She is sleeping in her left lateral decubitus position on nasal cannula and appears in no respiratory distress. VITAL SIGNS: Blood pressure 118/58, pulse of 106 in sinus rhythm, afebrile. Room air saturation 92%. HEENT: Cyanotic lips and she is wearing nasal cannula oxygen. She has a wet cough that is nonproductive. NECK: No JVD, no carotid bruits. CHEST: Scattered rhonchi. No audible wheezes. HEART: Sounds are normal. No murmur. ABDOMEN: Soft, normal bowel sounds. EXTREMITIES: No edema. NEUROLOGIC: Intact. LABORATORY DATA: Sodium 137, potassium 3.7, creatinine 0.5. BNP 67. On the last admission, her admission BNP was 585. White blood count 21.6. Hemoglobin 13.2. Chest x-ray, improving consolidation in the left mid and left lower lobes and concern for aspiration pneumonia superimposed on chronic lung disease and an unchanged small left pleural effusion. EKG: Normal sinus rhythm, left posterior fascicular block and no changes from her last EKG from several days ago, which was the last admission. IMPRESSION/DIAGNOSES 1. Severe respiratory distress including sudden hypoxia which occurred during minimal activity, possible mucus plug. 2. History of chronic bronchitis/chronic obstructive pulmonary disease. 3. History of pulmonary hypertension. 4. Recent healthcare-associated pneumonia, chest x-ray shows continued infiltrate; however, there is improvement. 5. Syncope, associated with hypoxia and telemetry shows evidence of tachycardia , suggesting possible volume depletion. PLAN: Admit the patient. Start telemetry for evaluation for arrhythmia as the cause of the syncope. Restart intravenous steroids, start nebulizers, inhalers, finish her course of antibiotics as planned with the 2 oral antibiotics. Begin aggressive chest physical therapy for pulmonary toilet, an Acapella device will be ordered. Continue Mucinex, also add Robitussin on a schedule. Begin physical therapy and with this, assess if she needs higher levels of supplemental oxygen. Determine if she would agree to further physical therapy at a SNF or at her home, so that she can have some independence with her activity. Ascertain that the home environment, however, is adequate for helping her with the care that is needed; Social Work consult requested. CODE STATUS: DNR. However, she does want a ventilator or intubation if needed and also complete medical care. DEEP VENOUS THROMBOSIS PROPHYLAXIS: SCDs. TD: 12/18/2017 19:47 PAVITHRA
[2017-12-18] MEDS: SODIUM CHLORIDE FLUSH 0.9% 10 ML SYRINGE IVP SCH (23:48)
[2017-12-19] MEDS ORDERED: LEVALBUTEROL 1.25 MG/3 ML NEB INH SCH (00:14)
[2017-12-19] MEDS: guaiFENesin/CODEINE 5 ML UDC PO SCH ×4 (04:06→20:40)
[2017-12-19] MEDS: LEVALBUTEROL 1.25 MG/3 ML NEB INH PRN ×4 (04:12→19:53)
[2017-12-19] MEDS: MORPHINE 2 MG/ML SYRINGE IVP PRN ×4 (04:18→19:35)
[2017-12-19] MEDS: SODIUM CHLORIDE FLUSH 0.9% 10 ML SYRINGE IVP PRN ×4 (04:19→21:59)
[2017-12-19 06:18] LABS: CALCIUM 8.6 mg/dL (8.5-10.3); CREATININE 0.4 mg/dL (0.4-1.0)
[2017-12-19] MEDS: methylPREDNISolone SUCCINATE 40 MG/ML VIAL IVP SCH ×3 (06:54→21:59)
[2017-12-19] MEDS ORDERED: OLODATEROL INH SCH ×2 (09:00→09:26)
[2017-12-19] MEDS: POLYETHYLENE GLYCOL 3350 17 GM PACKET PO SCH (09:03)
[2017-12-19] MEDS: DOCUSATE SODIUM 250 MG CAPSULE PO SCH (09:04)
[2017-12-19] MEDS: ASPIRIN CHEW 81 MG TABLET PO SCH (09:04)
[2017-12-19] MEDS: guaiFENesin 600 MG TABLET PO SCH ×2 (09:04→21:59)
[2017-12-19] MEDS: FAMOTIDINE 20 MG TABLET PO SCH (09:04)
[2017-12-19] MEDS: MULTIVITAMIN TABLET PO SCH (09:05)
[2017-12-19] MEDS: SENNA 8.6 MG TABLET PO SCH (09:06)
[2017-12-19] MEDS: AMOX/CLAV 875 MG/125 MG TABLET PO SCH ×2 (09:06→21:59)
[2017-12-19] MEDS: AZITHROMYCIN 250 MG TABLET PO SCH ×2 (09:08→21:59)
[2017-12-19] MEDS: SODIUM CHLORIDE FLUSH 0.9% 10 ML SYRINGE IVP SCH ×2 (14:14→19:43)
[2017-12-19] MEDS: SPIRIVA RESPIMAT INH SCH (14:19)
--- NOTE | 2017-12-19 16:51 | PROVIDER PROGRESS NOTE ---
Assessment/Plan - Problem List (1) Chronic bronchitis with COPD (chronic obstructive pulmonary disease) Assessment/Plan: Continue nebs, steroids, Mucinex and Acapella device, and supplemental oxygen. (2) HCAP (healthcare-associated pneumonia) Assessment/Plan: Pt on final days of treating HCAP with oral antibiotics. (3) Personality disorder, unspecified Assessment/Plan: It is unclear if she has dementia, or a personality disorder, as she has contradicted herself on many occasions during last admission and today. Physical Therapist was witnessed to slowly explain the purpose of evaluation and rehab, and Pt was not very cooperative and had excuses and many comments. Will continue to promote PT and OT. Also, the REFRIGERATION SERVICE INSPECTOR (Clinical Nurse SpecialistYinka), was asked to help nurses deal with the patient's changing decisions and statements. - Current Meds Current Meds: Current Medications Generic Name Dose Route Start Last Admin Trade Name Freq PRN Reason Stop Dose Admin Amoxicillin/Clavulanate Potassium 1 tab 12/18/17 21:00 12/19/17 09:06 Augmentin 875/125 PO 1 tab BID PETROS Administration Aspirin 81 mg 12/19/17 09:00 12/19/17 09:04 [place] Aspirin PO 81 mg DAILY PETROS Administration Azithromycin 250 mg 12/18/17 21:00 12/19/17 09:08 Zithromax PO 250 mg BID PETROS Administration Docusate Sodium 250 - 500 mg 12/19/17 09:00 12/19/17 09:04 Colace 250mg Capsule PO 250 mg DAILY PETROS Administration Famotidine 20 mg 12/19/17 09:00 12/19/17 09:04 Pepcid PO 20 mg DAILY PETROS Administration Guaifenesin 600 mg 12/18/17 21:00 12/19/17 09:04 Mucinex PO 600 mg BID PETROS Administration Guaifenesin/Codeine Phosphate 5 ml 12/18/17 20:00 12/19/17 14:14 Robitussin Ac PO 12/20/17 19:59 5 ml Q6H PETROS Administration Levalbuterol HCl 1.25 mg 12/18/17 23:35 12/19/17 13:05 Xopenex INH 1.25 mg Q4H PRN Administration Shortness of Air/Wheezing Levalbuterol HCl 1.25 mg 12/19/17 00:14 12/19/17 14:53 Xopenex INH Not Given QID PETROS Methylprednisolone 40 mg 12/18/17 22:00 12/19/17 14:14 Solu-Medrol (40mg Vial) IVP 40 mg TID PETROS Administration Morphine Sulfate 2 mg 12/18/17 18:56 12/19/17 14:14 Morphine IVP 2 mg Q2H PRN Administration Pain 8 to 10 Morphine Sulfate 10 mg 12/18/17 19:06 12/18/17 22:21 Roxanol PO 10 mg Q12H PRN Administration Pain/Dyspnea Multivitamins 1 tab 12/19/17 09:00 12/19/17 09:05 Theragran PO 1 tab DAILY PETROS Administration Spiriva Respimat 1 each 12/19/17 09:00 12/19/17 14:19 INH 1 each DAILY PETROS Administration Polyethylene Glycol 17 gm 12/19/17 09:00 12/19/17 09:03 Miralax PO 17 gm DAILY PETROS Administration Senna 8.6 - 17.2 mg 12/19/17 09:00 12/19/17 09:06 Senokot PO 8.6 mg DAILY PETROS Administration Sodium Chloride 10 ml 12/18/17 18:46 12/19/17 06:54 Normal Saline Flush 0.9% IVP 10 ml PRN PRN Administration NEEDED PER PROVIDER ORDERS Sodium Chloride 10 ml 12/19/17 01:00 12/19/17 14:14 Normal Saline Flush 0.9% IVP 10 ml 0100,0900,1700 PETROS Administration - Lab Result Fish Bone Diagrams: 12/18/17 15:45 12/19/17 05:10 - Additional Planning My Orders: My Active Orders 12/18/17 18:56 Acetaminophen [Tylenol] 650 mg PO Q4HR PRN Morphine Inj [Morphine] 2 mg IVP Q2H PRN Prochlorperazine Inj [Compazine Inj] 10 mg IVP Q6HR PRN Temazepam [Restoril] 15 mg PO QPM PRN 12/18/17 19:02 Incentive Spirometry - RT [RC] TID SCDs [RC] QSHIFT Telemetry- [RC] Routine 12/18/17 19:05 Social Work Consult [CONS] Routine Evaluate and Treat OT [OT] Routine Evaluate and Treat PT [PT] Routine 05/23/18 19:06 Morphine Oral Soln [Roxanol] 10 mg PO Q12H PRN 12/18/17 19:10 Acapella [RC] TID 12/18/17 20:00 guaiFENesin/CODEINE [Robitussin AC] 5 ml PO Q6H 12/18/17 21:00 Amox/Clav 875/125 [Augmentin 875/125] 1 tab PO BID Azithromycin [Zithromax] 250 mg PO BID guaiFENesin [Mucinex] 600 mg PO BID 12/18/17 22:00 methylPREDNISolone SUCCINATE [SOLU-Medrol (40MG VIAL)] 40 mg IVP TID 12/18/17 Dinner Regular Diet [DIET] 12/19/17 00:14 Levalbuterol [Xopenex] 1.25 mg INH QID 12/19/17 08:00 Budesonide [Pulmicort] 0.5 mg INH RTBID 12/19/17 09:00 Aspirin Chewable [[place] Aspirin] 81 mg PO DAILY Docusate Sodium 250Mg Capsule [Colace 250Mg Capsule] 250 - 500 mg PO DAILY Famotidine [Pepcid] 20 mg PO DAILY Multivitamin [Theragran] 1 tab PO DAILY Senna [Senokot] 8.6 - 17.2 mg PO DAILY 12/19/17 09:24 CUL, RESPIRATORY [RM] Urgent 12/20/17 05:00 BMP - BASIC METABOLIC PANEL [CHEM] DAILYLAB Subjective - Subjective Patient Reports: Feeling Better Nursing Reports: Other (Sleeping supine, able to eat with HOB vertical when she positions it that way. When Physical Therapy started putting HOB up, patient stated she was to panicky to have bed put up that way.) Objective Vital Signs: Vital Signs - 24 hr 12/18/17 12/18/17 12/19/17 19:39 20:41 00:04 Temperature 37.0 C 36.9 C Heart Rate 102 H Heart Rate [ Activity] Heart Rate [ 103 H Apical] Heart Rate [ 77 Brachial] Heart Rate [ Supine] Respiratory 16 20 20 Rate Blood Pressure 135/76 H Blood Pressure 136/70 H 116/63 [Right Brachial artery] Blood Pressure [Supine] O2 Saturation 93 93 96 12/19/17 12/19/17 12/19/17 04:12 04:24 07:20 Temperature 36.8 C Heart Rate 88 88 Heart Rate [ Activity] Heart Rate [ Apical] Heart Rate [ 89 Brachial] Heart Rate [ Supine] Respiratory 12 18 16 Rate Blood Pressure Blood Pressure 115/65 [Right Brachial artery] Blood Pressure [Supine] O2 Saturation 97 12/19/17 12/19/17 12/19/17 07:54 12:47 13:08 Temperature 36.8 C 36.7 C Heart Rate 92 Heart Rate [ Activity] Heart Rate [ Apical] Heart Rate [ 87 99 Brachial] Heart Rate [ Supine] Respiratory 18 18 19 Rate Blood Pressure Blood Pressure 112/57 L 103/55 L [Right Brachial artery] Blood Pressure [Supine] O2 Saturation 92 90 L 12/19/17 12/19/17 13:35 15:48 Temperature 37.2 C Heart Rate Heart Rate [ 114 H Activity] Heart Rate [ Apical] Heart Rate [ 89 Brachial] Heart Rate [ 100 Supine] Respiratory 18 Rate Blood Pressure Blood Pressure 113/60 [Right Brachial artery] Blood Pressure 112/54 L [Supine] O2 Saturation 98 Oxygen O2 Source Nasal cannula I&O (Last 24 Hrs): Intake and Output Totals x24h 12/17/17 12/18/17 12/19/17 23:59 23:59 23:59 Intake Total 636 Output Total 450 750 Balance -450 -114 General: No acute distress HEENT: Mucous membr. moist/pink Neck: Supple Neuro: Non Focal Cardiovascular: No murmurs Respiratory: No respiratory distress Extremities: No edema - Results Results: Laboratory Results WBC 21.6 x10^3/uL (4.8-10.8) H 12/18/17 15:45 RBC 4.77 10^6/uL (4.20-5.40) 12/18/17 15:45 Hgb 13.2 g/dL (12.0-16.0) 12/18/17 15:45 Hct 40.5 % (37.0-47.0) 12/18/17 15:45 MCV 84.8 fL (81.0-99.0) 12/18/17 15:45 MCH 27.7 pg (27.0-31.0) 12/18/17 15:45 MCHC 32.7 g/dL (32.0-36.0) 12/18/17 15:45 RDW 14.9 % (12.0-15.0) 12/18/17 15:45 Plt Count 373 10^3/uL (130-450) 12/18/17 15:45 MPV 8.2 fL (7.9-10.8) 12/18/17 15:45 Neut # Not Reportable 12/18/17 15:45 Lymph # Not Reportable 12/18/17 15:45 [place] # Not Reportable 12/18/17 15:45 Eos # Not Reportable 12/18/17 15:45 Baso # Not Reportable 12/18/17 15:45 Absolute Nucleated RBC Not Reportable 12/18/17 15:45 Total Counted 100 12/18/17 15:45 Band Neuts % (Manual) 3 % (0-10) 12/18/17 15:45 Abnorm Lymph % (Manual) 0 % 12/18/17 15:45 Nucleated RBC % Not Reportable 12/18/17 15:45 Neutrophils # (Manual) 16.8 10^3/uL (1.5-6.6) H 12/18/17 15:45 Lymphocytes # (Manual) 0.9 10^3/uL (1.5-3.5) L 12/18/17 15:45 Monocytes # (Manual) 1.7 10^3/uL (0.0-1.0) H 12/18/17 15:45 Eosinophils # (Manual) 2.2 10^3/uL (0-0.7) H 12/18/17 15:45 Basophils # (Manual) 0.0 10^3/uL (0-0.1) 12/18/17 15:45 Manual Slide Review Indicated 12/18/17 15:45 Platelet Estimate NORMAL (130-450,000) (NORMAL) 12/18/17 15:45 Platelet Morphology NORMAL APPEARANCE (NORMAL) 12/18/17 15:45 RBC Morph Micro Appear NORMAL APPEARANCE (NORMAL) 12/18/17 15:45 D-Dimer > 1050.0 ng/mL (200.0-255.0) H 12/18/17 15:45 Sodium 135 mmol/L (135-145) 12/19/17 05:10 Potassium 4.0 mmol/L (3.5-5.0) 12/19/17 05:10 Chloride 90 mmol/L (101-111) L 12/19/17 05:10 Carbon Dioxide 38 mmol/L (21-32) H 12/19/17 05:10 Anion Gap 7.0 (6-13) 12/19/17 05:10 BUN 10 mg/dL (6-20) 12/19/17 05:10 Creatinine 0.4 mg/dL (0.4-1.0) 12/19/17 05:10 Estimated GFR (MDRD) 160 (>89) 12/19/17 05:10 Glucose 133 mg/dL (70-100) H 12/19/17 05:10 Calcium 8.6 mg/dL (8.5-10.3) 12/19/17 05:10 Total Bilirubin 1.0 mg/dL (0.2-1.0) 12/18/17 15:45 AST 40 IU/L (10-42) 12/18/17 15:45 ALT 46 IU/L (10-60) 12/18/17 15:45 Alkaline Phosphatase 70 IU/L (42-121) 12/18/17 15:45 Troponin I < 0.04 ng/mL (<0.49) 12/18/17 20:54 B-Natriuretic Peptide 67 pg/mL (5-100) 12/18/17 15:45 Total Protein 6.6 g/dL (6.7-8.2) L 12/18/17 15:45 Albumin 3.2 g/dL (3.2-5.5) 12/18/17 15:45 Globulin 3.4 g/dL (2.1-4.2) 12/18/17 15:45 Albumin/Globulin Ratio 0.9 (1.0-2.2) L 12/18/17 15:45 Lipase 14 U/L (22-51) L 12/18/17 15:45 - Procedures Procedures: Procedures ASSISTANCE WITH RESPIRATORY VENTILATION, <24 HRS, CPAP (08/21/15) CATARAC PHACOEMULS/ASPIR (04/29/13) CONTINUOUS INVASIVE MECHANICAL VENTILATION <96 CONSEC HRS (06/07/13) IMPLANTED LENS REMOVAL (04/08/13) INSERT INFUSION DEV IN R INT JUGULAR VEIN, PERC (08/21/15) INSERT LENS AT CATAR EXT (04/29/13) INSERTION OF ENDOTRACHEAL AIRWAY INTO TRACHEA, VIA OPENING (08/21/15) INSERTION OF FEEDING DEVICE INTO STOMACH, VIA OPENING (08/21/15) NON-INVASIVE MECHANICAL VENTILATION (06/07/13) RESPIRATORY VENTILATION, 24-96 CONSECUTIVE HOURS (08/21/15) SECONDARY INSERT LENS (04/08/13) ABX Reporting Has patient been on IV antibiotics over the past 48 hours?: No
[2017-12-19] MEDS: BUDESONIDE 0.5 MG/2 ML NEB INH SCH ×2 (18:35→19:52)
[2017-12-19] MEDS: THEOPHYLLINE 400 MG PO SCH (22:00)
[2017-12-19] MEDS: TEMAZEPAM 15 MG CAPSULE PO PRN (22:32)
[2017-12-20] MEDS: SODIUM CHLORIDE FLUSH 0.9% 10 ML SYRINGE IVP SCH ×3 (01:00→19:06)
[2017-12-20] MEDS: guaiFENesin/CODEINE 5 ML UDC PO SCH ×3 (05:01→14:54)
[2017-12-20] MEDS: methylPREDNISolone SUCCINATE 40 MG/ML VIAL IVP SCH ×3 (05:55→21:00)
[2017-12-20] MEDS: SODIUM CHLORIDE FLUSH 0.9% 10 ML SYRINGE IVP PRN ×2 (05:55→21:00)
[2017-12-20 06:22] LABS: CALCIUM 8.9 mg/dL (8.5-10.3); CREATININE 0.4 mg/dL (0.4-1.0)
[2017-12-20] MEDS: LEVALBUTEROL 1.25 MG/3 ML NEB INH SCH ×4 (08:08→19:40)
[2017-12-20] MEDS: BUDESONIDE 0.5 MG/2 ML NEB INH SCH ×2 (08:08→19:40)
[2017-12-20] MEDS: SPIRIVA RESPIMAT INH SCH (08:10)
[2017-12-20] MEDS: AZITHROMYCIN 250 MG TABLET PO SCH ×2 (08:47→20:02)
[2017-12-20] MEDS: LORazepam 0.5 MG TABLET PO PRN ×2 (08:47→19:06)
[2017-12-20] MEDS: ASPIRIN CHEW 81 MG TABLET PO SCH (08:47)
[2017-12-20] MEDS: POLYETHYLENE GLYCOL 3350 17 GM PACKET PO SCH (08:47)
[2017-12-20] MEDS: guaiFENesin 600 MG TABLET PO SCH ×2 (08:48→20:02)
[2017-12-20] MEDS: AMOX/CLAV 875 MG/125 MG TABLET PO SCH ×2 (08:48→20:02)
[2017-12-20] MEDS: DOCUSATE SODIUM 250 MG CAPSULE PO SCH (08:48)
[2017-12-20] MEDS: MULTIVITAMIN TABLET PO SCH (08:48)
[2017-12-20] MEDS: SENNA 8.6 MG TABLET PO SCH (08:48)
[2017-12-20] MEDS: FAMOTIDINE 20 MG TABLET PO SCH (08:48)
[2017-12-20] MEDS: MORPHINE 2 MG/ML SYRINGE IVP PRN ×4 (08:49→19:06)
--- NOTE | 2017-12-20 15:00 | PROVIDER PROGRESS NOTE ---
Assessment/Plan - Problem List (1) Chronic bronchitis with COPD (chronic obstructive pulmonary disease) Assessment/Plan: Will change to nebs, more aggressive pulmonary toilet ordered (but Pt refused it today). Continue iv steroids. Continue Mucinex expectorant. Elevated WBC is likely due to iv steroids. Continue to monitor CBC. (2) HCAP (healthcare-associated pneumonia) Assessment/Plan: Pt on final days doses of recent pneumonia. (3) Personality disorder, unspecified Assessment/Plan: Pt more amenable to offers for help. She requests Home Health RN, which I will order. She has agreed to sit up in a bedside commode, since the seat is higher. PT still pending. - Current Meds Current Meds: Current Medications Generic Name Dose Route Start Last Admin Trade Name Freq PRN Reason Stop Dose Admin Amoxicillin/Clavulanate Potassium 1 tab 12/18/17 21:00 12/20/17 08:48 Augmentin 875/125 PO 1 tab BID PETROS Administration Aspirin 81 mg 12/19/17 09:00 12/20/17 08:47 [place] Aspirin PO 81 mg DAILY PETROS Administration Azithromycin 250 mg 12/18/17 21:00 12/20/17 08:47 Zithromax PO 250 mg BID PETROS Administration Budesonide 0.5 mg 12/19/17 08:00 12/20/17 08:08 Pulmicort INH 0.5 mg RTBID PETROS Administration Docusate Sodium 250 - 500 mg 12/19/17 09:00 12/20/17 08:48 Colace 250mg Capsule PO 500 mg DAILY PETROS Administration Famotidine 20 mg 12/19/17 09:00 12/20/17 08:48 Pepcid PO 20 mg DAILY PETROS Administration Guaifenesin 600 mg 12/18/17 21:00 12/20/17 08:48 Mucinex PO 600 mg BID PETROS Administration Guaifenesin/Codeine Phosphate 5 ml 12/18/17 20:00 12/20/17 14:54 Robitussin Ac PO 12/20/17 19:59 5 ml Q6H PETROS Administration Levalbuterol HCl 1.25 mg 12/18/17 23:35 12/19/17 19:53 Xopenex INH 1.25 mg Q4H PRN Administration Shortness of Air/Wheezing Levalbuterol HCl 1.25 mg 12/20/17 07:00 12/20/17 12:49 Xopenex INH 1.25 mg RTQID PETROS Administration Lorazepam 0.5 mg 12/19/17 21:45 12/20/17 08:47 Ativan PO 0.5 mg Q6H PRN Administration Anxiety Methylprednisolone 40 mg 12/18/17 22:00 12/20/17 14:54 Solu-Medrol (40mg Vial) IVP 40 mg TID PETROS Administration Morphine Sulfate 2 mg 12/18/17 18:56 12/20/17 14:50 Morphine IVP 2 mg Q2H PRN Administration Pain 8 to 10 Morphine Sulfate 10 mg 12/18/17 19:06 12/18/17 22:21 Roxanol PO 10 mg Q12H PRN Administration Pain/Dyspnea Multivitamins 1 tab 12/19/17 09:00 12/20/17 08:48 Theragran PO 1 tab DAILY PETROS Administration Spiriva Respimat 1 each 12/19/17 09:00 12/20/17 08:10 INH 1 each DAILY PETROS Administration Theophylline 400 Mg 1 each 12/19/17 07:26 12/19/17 22:00 Er Tab PO 1 each QPM PETROS Administration Olodaterol 2.5 Mcg 2 each 12/19/17 09:26 12/20/17 08:10 INH 2 each DAILY PETROS Administration Polyethylene Glycol 17 gm 12/19/17 09:00 12/20/17 08:47 Miralax PO 17 gm DAILY PETROS Administration Senna 8.6 - 17.2 mg 12/19/17 09:00 12/20/17 08:48 Senokot PO 17.2 mg DAILY PETROS Administration Sodium Chloride 10 ml 12/18/17 18:46 12/20/17 05:55 Normal Saline Flush 0.9% IVP 10 ml PRN PRN Administration NEEDED PER PROVIDER ORDERS Sodium Chloride 10 ml 12/19/17 01:00 12/20/17 08:49 Normal Saline Flush 0.9% IVP 10 ml 0100,0900,1700 PETROS Administration Temazepam 15 mg 12/18/17 18:56 12/19/17 22:32 Restoril PO 15 mg QPM PRN Administration Insomnia - Lab Result Fish Bone Diagrams: 12/18/17 15:45 12/20/17 05:30 - Additional Planning My Orders: My Active Orders 12/20/17 Home Health Referral [CONS] Routine 12/20/17 07:00 Levalbuterol [Xopenex] 1.25 mg INH RTQID Subjective - Subjective Patient Reports: Shortness of Breath, Other (Worse SOB on inhalers, compared to nebs. Same cough, less sputum.) Nursing Reports: Other (Pt refused oral rinse after nebs and refused VS checks this am.) Objective Vital Signs: Vital Signs - 24 hr 12/19/17 12/19/17 12/19/17 15:48 19:53 20:36 Temperature 37.2 C 37.1 C Heart Rate 81 Heart Rate [ 89 94 Brachial] Respiratory 18 12 18 Rate Blood Pressure 113/60 124/61 [Right Brachial artery] O2 Saturation 98 96 12/19/17 12/20/17 12/20/17 23:40 08:08 08:28 Temperature 37.0 C 36.8 C Heart Rate 99 Heart Rate [ 87 84 Brachial] Respiratory 18 18 18 Rate Blood Pressure 111/53 L 120/66 [Right Brachial artery] O2 Saturation 98 96 12/20/17 12:49 Temperature Heart Rate 89 Heart Rate [ Brachial] Respiratory 14 Rate Blood Pressure [Right Brachial artery] O2 Saturation Oxygen O2 Source Nasal cannula I&O (Last 24 Hrs): Intake and Output Totals x24h 12/18/17 12/19/17 12/20/17 23:59 23:59 23:59 Intake Total 1106 1220 Output Total 450 1150 400 Balance -450 -44 820 General: Alert, Oriented x3, Other (SOB when speaking, but able to lie flat.) HEENT: Mucous membr. moist/pink, Other (On O2 n.c.) Neck: Supple, No JVD Neuro: Non Focal Cardiovascular: Regular rate, No murmurs Respiratory: Other (Diminished, scattered wheezing.) Abdomen: Normal bowel sounds, Soft Extremities: No edema - Results Results: Laboratory Results WBC 21.6 x10^3/uL (4.8-10.8) H 12/18/17 15:45 RBC 4.77 10^6/uL (4.20-5.40) 12/18/17 15:45 Hgb 13.2 g/dL (12.0-16.0) 12/18/17 15:45 Hct 40.5 % (37.0-47.0) 12/18/17 15:45 MCV 84.8 fL (81.0-99.0) 12/18/17 15:45 MCH 27.7 pg (27.0-31.0) 12/18/17 15:45 MCHC 32.7 g/dL (32.0-36.0) 12/18/17 15:45 RDW 14.9 % (12.0-15.0) 12/18/17 15:45 Plt Count 373 10^3/uL (130-450) 12/18/17 15:45 MPV 8.2 fL (7.9-10.8) 12/18/17 15:45 Neut # Not Reportable 12/18/17 15:45 Lymph # Not Reportable 12/18/17 15:45 [place] # Not Reportable 12/18/17 15:45 Eos # Not Reportable 12/18/17 15:45 Baso # Not Reportable 12/18/17 15:45 Absolute Nucleated RBC Not Reportable 12/18/17 15:45 Total Counted 100 12/18/17 15:45 Band Neuts % (Manual) 3 % (0-10) 12/18/17 15:45 Abnorm Lymph % (Manual) 0 % 12/18/17 15:45 Nucleated RBC % Not Reportable 12/18/17 15:45 Neutrophils # (Manual) 16.8 10^3/uL (1.5-6.6) H 12/18/17 15:45 Lymphocytes # (Manual) 0.9 10^3/uL (1.5-3.5) L 12/18/17 15:45 Monocytes # (Manual) 1.7 10^3/uL (0.0-1.0) H 12/18/17 15:45 Eosinophils # (Manual) 2.2 10^3/uL (0-0.7) H 12/18/17 15:45 Basophils # (Manual) 0.0 10^3/uL (0-0.1) 12/18/17 15:45 Manual Slide Review Indicated 12/18/17 15:45 Platelet Estimate NORMAL (130-450,000) (NORMAL) 12/18/17 15:45 Platelet Morphology NORMAL APPEARANCE (NORMAL) 12/18/17 15:45 RBC Morph Micro Appear NORMAL APPEARANCE (NORMAL) 12/18/17 15:45 D-Dimer > 1050.0 ng/mL (200.0-255.0) H 12/18/17 15:45 Sodium 139 mmol/L (135-145) 12/20/17 05:30 Potassium 4.3 mmol/L (3.5-5.0) 12/20/17 05:30 Chloride 94 mmol/L (101-111) L 12/20/17 05:30 Carbon Dioxide 38 mmol/L (21-32) H 12/20/17 05:30 Anion Gap 7.0 (6-13) 12/20/17 05:30 BUN 14 mg/dL (6-20) 12/20/17 05:30 Creatinine 0.4 mg/dL (0.4-1.0) 12/20/17 05:30 Estimated GFR (MDRD) 160 (>89) 12/20/17 05:30 Glucose 140 mg/dL (70-100) H 12/20/17 05:30 Calcium 8.9 mg/dL (8.5-10.3) 12/20/17 05:30 Total Bilirubin 1.0 mg/dL (0.2-1.0) 12/18/17 15:45 AST 40 IU/L (10-42) 12/18/17 15:45 ALT 46 IU/L (10-60) 12/18/17 15:45 Alkaline Phosphatase 70 IU/L (42-121) 12/18/17 15:45 Troponin I < 0.04 ng/mL (<0.49) 12/18/17 20:54 B-Natriuretic Peptide 67 pg/mL (5-100) 12/18/17 15:45 Total Protein 6.6 g/dL (6.7-8.2) L 12/18/17 15:45 Albumin 3.2 g/dL (3.2-5.5) 12/18/17 15:45 Globulin 3.4 g/dL (2.1-4.2) 12/18/17 15:45 Albumin/Globulin Ratio 0.9 (1.0-2.2) L 12/18/17 15:45 Lipase 14 U/L (22-51) L 12/18/17 15:45 - Procedures Procedures: Procedures ASSISTANCE WITH RESPIRATORY VENTILATION, <24 HRS, CPAP (08/21/15) CATARAC PHACOEMULS/ASPIR (04/29/13) CONTINUOUS INVASIVE MECHANICAL VENTILATION <96 CONSEC HRS (06/07/13) IMPLANTED LENS REMOVAL (04/08/13) INSERT INFUSION DEV IN R INT JUGULAR VEIN, PERC (08/21/15) INSERT LENS AT CATAR EXT (04/29/13) INSERTION OF ENDOTRACHEAL AIRWAY INTO TRACHEA, VIA OPENING (08/21/15) INSERTION OF FEEDING DEVICE INTO STOMACH, VIA OPENING (08/21/15) NON-INVASIVE MECHANICAL VENTILATION (06/07/13) RESPIRATORY VENTILATION, 24-96 CONSECUTIVE HOURS (08/21/15) SECONDARY INSERT LENS (04/08/13)
[2017-12-20] MEDS ORDERED: IPRATROPIUM/ALBUTEROL 3 ML NEB INH PRN (15:08)
--- NOTE | 2017-12-20 17:36 | ADVANCE CARE PLANNING NOTE ---
Advance Care Planning - Date/Time Date: 12/20/17 Time: 11:30 - Purpose of encounter Text: To confirm patient's wishes regarding intubation and code status - Parties in attendance Parties in attendance: The patient and I spoke in her room - Decisional capacity Decisional capacity of: The patient is capable of making her own decisions. She has some brusk answers when she is being questioned about her decision making, but feels that she remembers well and makes demands regarding specific ADLs toward her nursing staff. - Subjective/Patient's story Subjective/Patient's story: The patient was and is a smoker. She has been Dx with chronic bronchitis/COPD. After the last admission at a different facility for pneumonia and needed intubation, she has required Home O2 continuously. She knows that her lungs are very sick and wants to get better , enough to go home, nd live to see her 14 y/ o grandchild graduate high school (3 more years). She is very afraid of suffocating and dying, therefore she wants intubation if it is needed in the future again. She is upset that someone stated to her family that al care was being withdrawn last week, after the patient requested "Comfort Measures" , because she cannot remember requesting Comfort Measures. She does however want to go naturally, if she should have a cardiac arrest, meaning she wants to be a DNR. - Objective/Medical story Objective/Medical Story: The patient was hospitalized and intubated several weeks ago, went home and worsened and came here and required intubation, self extubated herself and asked to have Comfort measures. The following day, she wanted full medical care and not Comfort Measures. She does change her mind, is demanding of staff and refuses standard care (such as having BP measured, rinsing after a steroid nebulizer treatment and considers "suctioning adequate to prevent thrush", she does not agree to call Xopenex by its trade name, only its generic name). She is making slow improvement in her respiratory status and wishes to be sent home, not to any SNF for rehab, after DCh. - Goals of Care Goals of care determinations: Return home, care by her daughter and grandchildren who all live together. She is interested in starting a Trilogy mask. She is requesting Home Health RN, which will be ordered. - Plan Plan: Complete her antibiotics for HCAP, improve her pulmonary status to an acceptable baseline. - Code Status Code Status: Do Not Attempt Resuscitation - Time Spent on Advance Care Planning Time spent on advance care plannin min
[2017-12-20] MEDS ORDERED: MAGNESIUM HYDROXIDE 2,400 MG/30 ML UDC PO ONE (17:59)
[2017-12-20] MEDS ORDERED: IPRATROPIUM/ALBUTEROL 3 ML NEB INH SCH (19:00)
[2017-12-20] MEDS: THEOPHYLLINE 400 MG PO SCH (20:02)
[2017-12-20] MEDS: MORPHINE SOL 10 MG/0.5 ML SYRINGE PO PRN (21:00)
[2017-12-20] MEDS: TEMAZEPAM 15 MG CAPSULE PO PRN (21:00)
[2017-12-21] MEDS: SODIUM CHLORIDE FLUSH 0.9% 10 ML SYRINGE IVP SCH ×3 (01:10→17:17)
[2017-12-21] MEDS: MORPHINE 2 MG/ML SYRINGE IVP PRN ×3 (01:10→08:56)
[2017-12-21] MEDS: LORazepam 0.5 MG TABLET PO PRN ×4 (01:10→17:16)
[2017-12-21] MEDS: SODIUM CHLORIDE FLUSH 0.9% 10 ML SYRINGE IVP PRN ×2 (05:20→20:42)
[2017-12-21] MEDS: methylPREDNISolone SUCCINATE 40 MG/ML VIAL IVP SCH ×3 (05:21→20:42)
[2017-12-21] MEDS ORDERED: MAGNESIUM CITRATE 296 ML BOTTLE PO ONE (08:40)
[2017-12-21] MEDS ORDERED: MAGNESIUM HYDROXIDE 2,400 MG/30 ML UDC PO ONE (08:40)
[2017-12-21] MEDS: ASPIRIN CHEW 81 MG TABLET PO SCH (08:56)
[2017-12-21] MEDS: AMOX/CLAV 875 MG/125 MG TABLET PO SCH ×2 (08:56→20:41)
[2017-12-21] MEDS: MULTIVITAMIN TABLET PO SCH (08:56)
[2017-12-21] MEDS: POLYETHYLENE GLYCOL 3350 17 GM PACKET PO SCH (08:56)
[2017-12-21] MEDS: DOCUSATE SODIUM 250 MG CAPSULE PO SCH (08:57)
[2017-12-21] MEDS: AZITHROMYCIN 250 MG TABLET PO SCH ×2 (08:57→20:41)
[2017-12-21] MEDS: SENNA 8.6 MG TABLET PO SCH (08:57)
[2017-12-21] MEDS: guaiFENesin 600 MG TABLET PO SCH ×2 (08:57→20:41)
[2017-12-21] MEDS: FAMOTIDINE 20 MG TABLET PO SCH (09:03)
--- NOTE | 2017-12-21 12:59 | PROVIDER PROGRESS NOTE ---
Assessment/Plan - Problem List (1) Chronic bronchitis with COPD (chronic obstructive pulmonary disease) Assessment/Plan: Continue nebs, steroids, IS and Acapella. Home Health requested with a Skilled RN, Aide and possibly Home PT. (2) HCAP (healthcare-associated pneumonia) Assessment/Plan: Pt to finish a course of antibiotics for the HCAP of last admission. (3) Anxiety Assessment/Plan: Will order daytime Ativan 0.5 mg tid prn and hs Ambien 10 mg, a she requests. - Current Meds Current Meds: Current Medications Generic Name Dose Route Start Last Admin Trade Name Freq PRN Reason Stop Dose Admin Albuterol/Ipratropium 3 ml 12/20/17 15:08 12/21/17 05:27 Duoneb INH 3 ml Q4HR PRN Administration Wheezing Amoxicillin/Clavulanate Potassium 1 tab 12/18/17 21:00 12/21/17 08:56 Augmentin 875/125 PO 1 tab BID PETROS Administration Aspirin 81 mg 12/19/17 09:00 12/21/17 08:56 [facility] [place] Aspirin PO 81 mg DAILY PETROS Administration Azithromycin 250 mg 12/18/17 21:00 12/21/17 08:57 Zithromax PO 250 mg BID PETROS Administration Budesonide 0.5 mg 12/19/17 08:00 12/20/17 19:40 Pulmicort INH 0.5 mg RTBID PETROS Administration Docusate Sodium 250 - 500 mg 12/19/17 09:00 12/21/17 08:57 Colace 250mg Capsule PO 250 mg DAILY PETROS Administration Famotidine 20 mg 12/19/17 09:00 12/21/17 09:03 Pepcid PO 20 mg DAILY PETROS Administration Guaifenesin 600 mg 12/18/17 21:00 12/21/17 08:57 Mucinex PO 600 mg BID PETROS Administration Levalbuterol HCl 1.25 mg 12/20/17 07:00 12/20/17 19:40 Xopenex INH 1.25 mg RTQID PETROS Administration Lorazepam 0.5 mg 12/19/17 21:45 12/21/17 08:56 Ativan PO 0.5 mg Q6H PRN Administration Anxiety Methylprednisolone 40 mg 12/18/17 22:00 12/21/17 05:21 Solu-Medrol (40mg Vial) IVP 40 mg TID PETROS Administration Morphine Sulfate 2 mg 12/18/17 18:56 12/21/17 08:56 Morphine IVP 2 mg Q2H PRN Administration Pain 8 to 10 Morphine Sulfate 10 mg 12/18/17 19:06 12/20/17 21:00 Roxanol PO 10 mg Q12H PRN Administration Pain/Dyspnea Multivitamins 1 tab 12/19/17 09:00 12/21/17 08:56 Theragran PO 1 tab DAILY PETROS Administration Theophylline 400 Mg 1 each 12/19/17 07:26 12/20/17 20:02 Er Tab PO 1 each QPM PETROS Administration Polyethylene Glycol 17 gm 12/19/17 09:00 12/21/17 08:56 Miralax PO 17 gm DAILY PETROS Administration Senna 8.6 - 17.2 mg 12/19/17 09:00 12/21/17 08:57 Senokot PO 8.6 mg DAILY PETROS Administration Sodium Chloride 10 ml 12/18/17 18:46 12/21/17 05:20 Normal Saline Flush 0.9% IVP 10 ml PRN PRN Administration NEEDED PER PROVIDER ORDERS Sodium Chloride 10 ml 12/19/17 01:00 12/21/17 08:58 Normal Saline Flush 0.9% IVP 10 ml 0100,0900,1700 PETROS Administration Temazepam 15 mg 12/18/17 18:56 12/20/17 21:00 Restoril PO 15 mg QPM PRN Administration Insomnia - Lab Result Fish Bone Diagrams: 12/18/17 15:45 12/20/17 05:30 - Additional Planning My Orders: My Active Orders 12/20/17 15:08 Ipratropium/Albuterol [Duoneb] 3 ml INH Q4HR PRN Subjective - Subjective Patient Reports: Feeling Better, Resting Comfortably, Other (Requesting meds for anxiety and for sleep.) Nursing Reports: Other (Pt did sit up in a chair (bedside commode with a pillow ) yesterday.) Objective Vital Signs: Vital Signs - 24 hr 12/20/17 12/20/17 12/20/17 15:37 15:56 16:08 Temperature 36.7 C Heart Rate 88 Heart Rate [ 114 H Activity] Heart Rate [ 90 Brachial] Respiratory 16 16 Rate Blood Pressure 135/63 H [Right Brachial artery] O2 Saturation 97 12/20/17 12/21/17 12/21/17 19:35 01:13 05:27 Temperature 37.0 C Heart Rate 91 79 Heart Rate [ Activity] Heart Rate [ 74 Brachial] Respiratory 18 18 18 Rate Blood Pressure 111/51 L [Right Brachial artery] O2 Saturation 97 12/21/17 08:10 Temperature 36.7 C Heart Rate Heart Rate [ Activity] Heart Rate [ 85 Brachial] Respiratory 16 Rate Blood Pressure 105/52 L [Right Brachial artery] O2 Saturation 95 Oxygen O2 Source Nasal cannula I&O (Last 24 Hrs): Intake and Output Totals x24h 12/19/17 12/20/17 12/21/17 23:59 23:59 23:59 Intake Total 1106 1656 600 Output Total 1150 750 400 Balance -44 906 200 General: Alert, Oriented x3, Mild distress HEENT: Mucous membr. moist/pink Neck: Supple, No JVD Neuro: Non Focal Cardiovascular: No murmurs Respiratory: Other (Scatttered anterior wheeze, prolonged expiratory phase) Abdomen: Soft Extremities: No edema - Results Results: Laboratory Results WBC 21.6 x10^3/uL (4.8-10.8) H 12/18/17 15:45 RBC 4.77 10^6/uL (4.20-5.40) 12/18/17 15:45 Hgb 13.2 g/dL (12.0-16.0) 12/18/17 15:45 Hct 40.5 % (37.0-47.0) 12/18/17 15:45 MCV 84.8 fL (81.0-99.0) 12/18/17 15:45 MCH 27.7 pg (27.0-31.0) 12/18/17 15:45 MCHC 32.7 g/dL (32.0-36.0) 12/18/17 15:45 RDW 14.9 % (12.0-15.0) 12/18/17 15:45 Plt Count 373 10^3/uL (130-450) 12/18/17 15:45 MPV 8.2 fL (7.9-10.8) 12/18/17 15:45 Neut # Not Reportable 12/18/17 15:45 Lymph # Not Reportable 12/18/17 15:45 [place] # Not Reportable 12/18/17 15:45 Eos # Not Reportable 12/18/17 15:45 Baso # Not Reportable 12/18/17 15:45 Absolute Nucleated RBC Not Reportable 12/18/17 15:45 Total Counted 100 12/18/17 15:45 Band Neuts % (Manual) 3 % (0-10) 12/18/17 15:45 Abnorm Lymph % (Manual) 0 % 12/18/17 15:45 Nucleated RBC % Not Reportable 12/18/17 15:45 Neutrophils # (Manual) 16.8 10^3/uL (1.5-6.6) H 12/18/17 15:45 Lymphocytes # (Manual) 0.9 10^3/uL (1.5-3.5) L 12/18/17 15:45 Monocytes # (Manual) 1.7 10^3/uL (0.0-1.0) H 12/18/17 15:45 Eosinophils # (Manual) 2.2 10^3/uL (0-0.7) H 12/18/17 15:45 Basophils # (Manual) 0.0 10^3/uL (0-0.1) 12/18/17 15:45 Manual Slide Review Indicated 12/18/17 15:45 Platelet Estimate NORMAL (130-450,000) (NORMAL) 12/18/17 15:45 Platelet Morphology NORMAL APPEARANCE (NORMAL) 12/18/17 15:45 RBC Morph Micro Appear NORMAL APPEARANCE (NORMAL) 12/18/17 15:45 D-Dimer > 1050.0 ng/mL (200.0-255.0) H 12/18/17 15:45 Sodium 139 mmol/L (135-145) 12/20/17 05:30 Potassium 4.3 mmol/L (3.5-5.0) 12/20/17 05:30 Chloride 94 mmol/L (101-111) L 12/20/17 05:30 Carbon Dioxide 38 mmol/L (21-32) H 12/20/17 05:30 Anion Gap 7.0 (6-13) 12/20/17 05:30 BUN 14 mg/dL (6-20) 12/20/17 05:30 Creatinine 0.4 mg/dL (0.4-1.0) 12/20/17 05:30 Estimated GFR (MDRD) 160 (>89) 12/20/17 05:30 Glucose 140 mg/dL (70-100) H 12/20/17 05:30 Calcium 8.9 mg/dL (8.5-10.3) 12/20/17 05:30 Total Bilirubin 1.0 mg/dL (0.2-1.0) 12/18/17 15:45 AST 40 IU/L (10-42) 12/18/17 15:45 ALT 46 IU/L (10-60) 12/18/17 15:45 Alkaline Phosphatase 70 IU/L (42-121) 12/18/17 15:45 Troponin I < 0.04 ng/mL (<0.49) 12/18/17 20:54 B-Natriuretic Peptide 67 pg/mL (5-100) 12/18/17 15:45 Total Protein 6.6 g/dL (6.7-8.2) L 12/18/17 15:45 Albumin 3.2 g/dL (3.2-5.5) 12/18/17 15:45 Globulin 3.4 g/dL (2.1-4.2) 12/18/17 15:45 Albumin/Globulin Ratio 0.9 (1.0-2.2) L 12/18/17 15:45 Lipase 14 U/L (22-51) L 12/18/17 15:45 - Procedures Procedures: Procedures ASSISTANCE WITH RESPIRATORY VENTILATION, <24 HRS, CPAP (08/21/15) CATARAC PHACOEMULS/ASPIR (04/29/13) CONTINUOUS INVASIVE MECHANICAL VENTILATION <96 CONSEC HRS (06/07/13) IMPLANTED LENS REMOVAL (04/08/13) INSERT INFUSION DEV IN R INT JUGULAR VEIN, PERC (08/21/15) INSERT LENS AT CATAR EXT (04/29/13) INSERTION OF ENDOTRACHEAL AIRWAY INTO TRACHEA, VIA OPENING (08/21/15) INSERTION OF FEEDING DEVICE INTO STOMACH, VIA OPENING (08/21/15) NON-INVASIVE MECHANICAL VENTILATION (06/07/13) RESPIRATORY VENTILATION, 24-96 CONSECUTIVE HOURS (08/21/15) SECONDARY INSERT LENS (04/08/13)
[2017-12-21] MEDS: BUDESONIDE 0.5 MG/2 ML NEB INH SCH ×2 (14:10→19:16)
[2017-12-21] MEDS: LEVALBUTEROL 1.25 MG/3 ML NEB INH SCH ×4 (14:10→22:48)
[2017-12-21] MEDS: MORPHINE SOL 10 MG/0.5 ML SYRINGE PO PRN (17:16)
[2017-12-21] MEDS: ZOLPIDEM 5 MG TABLET PO PRN (20:41)
[2017-12-21] MEDS: THEOPHYLLINE 400 MG PO SCH (20:42)
[2017-12-22] MEDS: MORPHINE 2 MG/ML SYRINGE IVP PRN ×4 (02:47→14:50)
[2017-12-22] MEDS: SODIUM CHLORIDE FLUSH 0.9% 10 ML SYRINGE IVP SCH ×3 (02:47→14:39)
[2017-12-22] MEDS: SODIUM CHLORIDE FLUSH 0.9% 10 ML SYRINGE IVP PRN ×3 (05:13→16:56)
[2017-12-22] MEDS: methylPREDNISolone SUCCINATE 40 MG/ML VIAL IVP SCH ×2 (05:13→14:39)
[2017-12-22] MEDS ORDERED: LORazepam 0.5 MG TABLET PO PRN (07:00)
[2017-12-22] MEDS: BUDESONIDE 0.5 MG/2 ML NEB INH SCH ×2 (07:30→19:21)
[2017-12-22] MEDS: LEVALBUTEROL 1.25 MG/3 ML NEB INH SCH ×4 (07:30→19:21)
[2017-12-22] MEDS: POLYETHYLENE GLYCOL 3350 17 GM PACKET PO SCH (10:00)
[2017-12-22] MEDS: AZITHROMYCIN 250 MG TABLET PO SCH (10:01)
[2017-12-22] MEDS: SENNA 8.6 MG TABLET PO SCH (10:01)
[2017-12-22] MEDS: guaiFENesin 600 MG TABLET PO SCH ×2 (10:01→16:56)
[2017-12-22] MEDS: AMOX/CLAV 875 MG/125 MG TABLET PO SCH (10:01)
[2017-12-22] MEDS: DOCUSATE SODIUM 250 MG CAPSULE PO SCH (10:01)
[2017-12-22] MEDS: FAMOTIDINE 20 MG TABLET PO SCH (10:01)
[2017-12-22] MEDS: MULTIVITAMIN TABLET PO SCH (10:02)
[2017-12-22] MEDS: ASPIRIN CHEW 81 MG TABLET PO SCH (10:02)
[2017-12-22] MEDS: LORazepam 0.5 MG TABLET PO PRN (14:50)
--- NOTE | 2017-12-22 16:19 | PROVIDER PROGRESS NOTE ---
Assessment/Plan - Problem List (1) Chronic bronchitis with COPD (chronic obstructive pulmonary disease) Assessment/Plan: Will try decreasing iv steroids from tid to bid, continue nebs. Part of her "air hunger" is anxiety, she reports. Therefore will increase Ativan dosing. Will also decrease interruptions during sleep, between 10 pm and 6 am. Monitor H/H and BUN/creat tomorrow. (2) HCAP (healthcare-associated pneumonia) Assessment/Plan: Pt has finished her course of treatment. Sputum production and cough are significantly better. Will stop po antibiotics. (3) Anxiety Assessment/Plan: Part of her "air hunger" is anxiety and panicky feelings, by her own admission. Will adjsust Ativan doses and use Ambien and avoid awakening her when asleep ( between 10 pm and 6 am, if possible) - Current Meds Current Meds: Current Medications Generic Name Dose Route Start Last Admin Trade Name Freq PRN Reason Stop Dose Admin Albuterol/Ipratropium 3 ml 12/20/17 15:08 12/21/17 05:27 Duoneb INH 3 ml Q4HR PRN Administration Wheezing Aspirin 81 mg 12/19/17 09:00 12/22/17 10:02 [facility] [place] Aspirin PO 81 mg DAILY PETROS Administration Budesonide 0.5 mg 12/19/17 08:00 12/22/17 07:30 Pulmicort INH 0.5 mg RTBID PETROS Administration Docusate Sodium 250 - 500 mg 12/19/17 09:00 12/22/17 10:01 Colace 250mg Capsule PO 250 mg DAILY PETROS Administration Famotidine 20 mg 12/19/17 09:00 12/22/17 10:01 Pepcid PO 20 mg DAILY PETROS Administration Levalbuterol HCl 1.25 mg 12/20/17 07:00 12/22/17 14:00 Xopenex INH 1.25 mg RTQID PETROS Administration Lorazepam 1 mg 12/22/17 11:26 12/22/17 14:50 Ativan PO 1 mg QID PRN Administration Anxiety Morphine Sulfate 2 mg 12/18/17 18:56 12/22/17 14:50 Morphine IVP 2 mg Q2H PRN Administration Pain 8 to 10 Morphine Sulfate 10 mg 12/18/17 19:06 12/21/17 17:16 Roxanol PO 10 mg Q12H PRN Administration Pain/Dyspnea Multivitamins 1 tab 12/19/17 09:00 12/22/17 10:02 Theragran PO 1 tab DAILY PETROS Administration Theophylline 400 Mg 1 each 12/19/17 07:26 12/21/17 20:42 Er Tab PO 1 each QPM PETROS Administration Polyethylene Glycol 17 gm 12/19/17 09:00 12/22/17 10:00 Miralax PO 17 gm DAILY PETROS Administration Senna 8.6 - 17.2 mg 12/19/17 09:00 12/22/17 10:01 Senokot PO 8.6 mg DAILY PETROS Administration Sodium Chloride 10 ml 12/18/17 18:46 12/22/17 05:14 Normal Saline Flush 0.9% IVP 10 ml PRN PRN Administration NEEDED PER PROVIDER ORDERS Sodium Chloride 10 ml 12/19/17 01:00 12/22/17 14:39 Normal Saline Flush 0.9% IVP 10 ml 0100,0900,1700 PETROS Administration Temazepam 15 mg 12/18/17 18:56 12/20/17 21:00 Restoril PO 15 mg QPM PRN Administration Insomnia Zolpidem Tartrate 5 mg 12/21/17 20:00 12/21/17 20:41 Ambien PO 5 mg QPM PRN Administration Insomnia - Lab Result Fish Bone Diagrams: 12/18/17 15:45 12/20/17 05:30 - Additional Planning My Orders: My Active Orders 12/21/17 20:00 Zolpidem [Ambien] 5 mg PO QPM PRN 12/22/17 11:26 LORazepam [Ativan] 1 mg PO QID PRN 12/22/17 17:00 guaiFENesin [Mucinex] 600 mg PO BIDWM methylPREDNISolone SUCCINATE [SOLU-Medrol (40MG VIAL)] 40 mg IVP BIDWM 12/23/17 07:00 CBC - COMP BLD CT W/AUTO DIFF [HEME] Timed CMP [COMPREHENSIVE METABOLIC PANEL] [CHEM] Timed Subjective - Subjective Patient Reports: Shortness of Breath, Other (Able to lie flat. Is less nervous with Ativan dosing and hs Ambien.) Objective Vital Signs: Vital Signs - 24 hr 12/21/17 12/21/17 12/22/17 18:15 19:15 00:05 Temperature Heart Rate 84 96 Heart Rate [ 73 Brachial] Respiratory 20 18 18 Rate Blood Pressure [Right Brachial artery] O2 Saturation 98 12/22/17 12/22/17 12/22/17 02:14 02:41 07:30 Temperature 36.5 C Heart Rate 84 Heart Rate [ 71 90 Brachial] Respiratory 18 20 22 Rate Blood Pressure 138/67 H [Right Brachial artery] O2 Saturation 98 98 12/22/17 14:00 Temperature 36.6 C Heart Rate 94 Heart Rate [ 90 Brachial] Respiratory 16 Rate Blood Pressure 131/70 H [Right Brachial artery] O2 Saturation 98 Oxygen O2 Source Nasal cannula I&O (Last 24 Hrs): Intake and Output Totals x24h 12/20/17 12/21/17 12/22/17 23:59 23:59 23:59 Intake Total 1656 1640 890 Output Total 750 900 450 Balance 906 740 440 General: Alert, Oriented x3 HEENT: Mucous membr. moist/pink Neck: Supple, No JVD Neuro: Non Focal Cardiovascular: Regular rate, No murmurs Respiratory: Other (Scattered wheezing, prolonged expiratory phase.) Abdomen: Soft Extremities: No edema - Results Results: Laboratory Results WBC 21.6 x10^3/uL (4.8-10.8) H 12/18/17 15:45 RBC 4.77 10^6/uL (4.20-5.40) 12/18/17 15:45 Hgb 13.2 g/dL (12.0-16.0) 12/18/17 15:45 Hct 40.5 % (37.0-47.0) 12/18/17 15:45 MCV 84.8 fL (81.0-99.0) 12/18/17 15:45 MCH 27.7 pg (27.0-31.0) 12/18/17 15:45 MCHC 32.7 g/dL (32.0-36.0) 12/18/17 15:45 RDW 14.9 % (12.0-15.0) 12/18/17 15:45 Plt Count 373 10^3/uL (130-450) 12/18/17 15:45 MPV 8.2 fL (7.9-10.8) 12/18/17 15:45 Neut # Not Reportable 12/18/17 15:45 Lymph # Not Reportable 12/18/17 15:45 [place] # Not Reportable 12/18/17 15:45 Eos # Not Reportable 12/18/17 15:45 Baso # Not Reportable 12/18/17 15:45 Absolute Nucleated RBC Not Reportable 12/18/17 15:45 Total Counted 100 12/18/17 15:45 Band Neuts % (Manual) 3 % (0-10) 12/18/17 15:45 Abnorm Lymph % (Manual) 0 % 12/18/17 15:45 Nucleated RBC % Not Reportable 12/18/17 15:45 Neutrophils # (Manual) 16.8 10^3/uL (1.5-6.6) H 12/18/17 15:45 Lymphocytes # (Manual) 0.9 10^3/uL (1.5-3.5) L 12/18/17 15:45 Monocytes # (Manual) 1.7 10^3/uL (0.0-1.0) H 12/18/17 15:45 Eosinophils # (Manual) 2.2 10^3/uL (0-0.7) H 12/18/17 15:45 Basophils # (Manual) 0.0 10^3/uL (0-0.1) 12/18/17 15:45 Manual Slide Review Indicated 12/18/17 15:45 Platelet Estimate NORMAL (130-450,000) (NORMAL) 12/18/17 15:45 Platelet Morphology NORMAL APPEARANCE (NORMAL) 12/18/17 15:45 RBC Morph Micro Appear NORMAL APPEARANCE (NORMAL) 12/18/17 15:45 D-Dimer > 1050.0 ng/mL (200.0-255.0) H 12/18/17 15:45 Sodium 139 mmol/L (135-145) 12/20/17 05:30 Potassium 4.3 mmol/L (3.5-5.0) 12/20/17 05:30 Chloride 94 mmol/L (101-111) L 12/20/17 05:30 Carbon Dioxide 38 mmol/L (21-32) H 12/20/17 05:30 Anion Gap 7.0 (6-13) 12/20/17 05:30 BUN 14 mg/dL (6-20) 12/20/17 05:30 Creatinine 0.4 mg/dL (0.4-1.0) 12/20/17 05:30 Estimated GFR (MDRD) 160 (>89) 12/20/17 05:30 Glucose 140 mg/dL (70-100) H 12/20/17 05:30 Calcium 8.9 mg/dL (8.5-10.3) 12/20/17 05:30 Total Bilirubin 1.0 mg/dL (0.2-1.0) 12/18/17 15:45 AST 40 IU/L (10-42) 12/18/17 15:45 ALT 46 IU/L (10-60) 12/18/17 15:45 Alkaline Phosphatase 70 IU/L (42-121) 12/18/17 15:45 Troponin I < 0.04 ng/mL (<0.49) 12/18/17 20:54 B-Natriuretic Peptide 67 pg/mL (5-100) 12/18/17 15:45 Total Protein 6.6 g/dL (6.7-8.2) L 12/18/17 15:45 Albumin 3.2 g/dL (3.2-5.5) 12/18/17 15:45 Globulin 3.4 g/dL (2.1-4.2) 12/18/17 15:45 Albumin/Globulin Ratio 0.9 (1.0-2.2) L 12/18/17 15:45 Lipase 14 U/L (22-51) L 12/18/17 15:45 - Procedures Procedures: Procedures ASSISTANCE WITH RESPIRATORY VENTILATION, <24 HRS, CPAP (08/21/15) CATARAC PHACOEMULS/ASPIR (04/29/13) CONTINUOUS INVASIVE MECHANICAL VENTILATION <96 CONSEC HRS (06/07/13) IMPLANTED LENS REMOVAL (04/08/13) INSERT INFUSION DEV IN R INT JUGULAR VEIN, PERC (08/21/15) INSERT LENS AT CATAR EXT (04/29/13) INSERTION OF ENDOTRACHEAL AIRWAY INTO TRACHEA, VIA OPENING (08/21/15) INSERTION OF FEEDING DEVICE INTO STOMACH, VIA OPENING (08/21/15) NON-INVASIVE MECHANICAL VENTILATION (06/07/13) RESPIRATORY VENTILATION, 24-96 CONSECUTIVE HOURS (08/21/15) SECONDARY INSERT LENS (04/08/13)
[2017-12-22] MEDS: THEOPHYLLINE 400 MG PO SCH (21:13)
[2017-12-22] MEDS: ZOLPIDEM 5 MG TABLET PO PRN (21:13)
[2017-12-23] MEDS: SODIUM CHLORIDE FLUSH 0.9% 10 ML SYRINGE IVP SCH ×3 (01:07→16:40)
[2017-12-23] MEDS: MORPHINE 2 MG/ML SYRINGE IVP PRN ×4 (01:07→22:30)
[2017-12-23 06:37] LABS: BASOPHILS % (AUTO) 0.5 %; EOSINOPHILS % (AUTO) 0.8 %; HGB - HEMOGLOBIN 10.3 g/dL (12.0-16.0); LYMPHOCYTES % (AUTO) 7.6 %; MEAN CORPUSCULAR HEMOGLOBIN 27.1 pg (27.0-31.0); MEAN CORPUSCULAR VOLUME 84.6 fL (81.0-99.0); MONOCYTES % (AUTO) 6.2 %; NEUTROPHILS % (AUTO) 84.9 %; PLT - PLATELET COUNT 262 10^3/uL (130-450); RED BLOOD COUNT 3.82 10^6/uL (4.20-5.40); WHITE BLOOD COUNT 20.7 x10^3/uL (4.8-10.8)
[2017-12-23 06:44] LABS: ALBUMIN 2.8 g/dL (3.2-5.5); ALBUMIN/GLOBULIN RATIO 1.2 (1.0-2.2); BILIRUBIN,TOTAL 0.6 mg/dL (0.2-1.0); CALCIUM 8.6 mg/dL (8.5-10.3); CREATININE 0.4 mg/dL (0.4-1.0); TOTAL PROTEIN 5.1 g/dL (6.7-8.2)
[2017-12-23 06:50] LABS: ABNORMAL LYMPHS % (MANUAL) 0 %
[2017-12-23 07:55] LABS: BAND NEUTROPHILS % (MANUAL) 1 %; EOSINOPHILS # (MANUAL) 0.2 10^3/uL (0-0.7); LYMPHOCYTES # (MANUAL) 2.1 10^3/uL (1.5-3.5); LYMPHOCYTES % (MANUAL) 10 %; METAMYELOCYTES % (MANUAL) 1 %; MONOCYTES # (MANUAL) 1.2 10^3/uL (0.0-1.0); NEUTROPHILS % (MANUAL) 81 %; RBC MORPHOLOGY (MULTIPLE) NORMAL APPEARANCE (NORMAL)
[2017-12-23 07:57] LABS: PLATELET ESTIMATE, MANUAL NORMAL (130-450,000) (NORMAL)
[2017-12-23] MEDS: LEVALBUTEROL 1.25 MG/3 ML NEB INH SCH ×4 (08:02→20:13)
[2017-12-23] MEDS: BUDESONIDE 0.5 MG/2 ML NEB INH SCH ×2 (08:03→20:13)
[2017-12-23] MEDS: methylPREDNISolone SUCCINATE 40 MG/ML VIAL IVP SCH ×2 (08:42→16:40)
[2017-12-23] MEDS: ASPIRIN CHEW 81 MG TABLET PO SCH (08:48)
[2017-12-23] MEDS: FAMOTIDINE 20 MG TABLET PO SCH (08:48)
[2017-12-23] MEDS: DOCUSATE SODIUM 250 MG CAPSULE PO SCH (08:49)
[2017-12-23] MEDS: guaiFENesin 600 MG TABLET PO SCH ×2 (08:49→16:40)
[2017-12-23] MEDS: MULTIVITAMIN TABLET PO SCH (08:49)
[2017-12-23] MEDS: LORazepam 0.5 MG TABLET PO PRN ×2 (09:03→20:51)
[2017-12-23] MEDS: MORPHINE SOL 10 MG/0.5 ML SYRINGE PO PRN ×2 (09:04→20:51)
[2017-12-23] MEDS: SENNA 8.6 MG TABLET PO SCH (09:07)
[2017-12-23] MEDS: POLYETHYLENE GLYCOL 3350 17 GM PACKET PO SCH (09:07)
--- NOTE | 2017-12-23 13:48 | PROVIDER PROGRESS NOTE ---
Assessment/Plan - Problem List (1) Chronic bronchitis with COPD (chronic obstructive pulmonary disease) Assessment/Plan: Pt on nebs, iv steroids (which may be causing tremulousness and elevated WBC), Mucinex and supplemental O2 and has had minimal improvement in air hunger for the past 3 days. She does have less sputum production, cough and need for suctioning. Will recheck a CXR today. (2) HCAP (healthcare-associated pneumonia) Assessment/Plan: Antibiotics were completed yesterday. Pt is still SOB today. Will recheck a CXR today. (3) Anxiety Assessment/Plan: Pt put on Ambien and Ativan scheduled doses. She is somewhat more amenable to cooperate with her care, including nebs and PT. Home Health referral submitted several days ago. Today the patient made her choice and Case Management is proceeding with arranging this. - Current Meds Current Meds: Current Medications Generic Name Dose Route Start Last Admin Trade Name Freq PRN Reason Stop Dose Admin Albuterol/Ipratropium 3 ml 12/20/17 15:08 12/21/17 05:27 Duoneb INH 3 ml Q4HR PRN Administration Wheezing Aspirin 81 mg 12/19/17 09:00 12/23/17 08:48 [facility] [place] Aspirin PO 81 mg DAILY PETROS Administration Budesonide 0.5 mg 12/19/17 08:00 12/23/17 08:03 Pulmicort INH 0.5 mg RTBID PETROS Administration Docusate Sodium 250 - 500 mg 12/19/17 09:00 12/23/17 08:49 Colace 250mg Capsule PO 250 mg DAILY PETROS Administration Famotidine 20 mg 12/19/17 09:00 12/23/17 08:48 Pepcid PO 20 mg DAILY PETROS Administration Guaifenesin 600 mg 12/22/17 17:00 12/23/17 08:49 Mucinex PO 600 mg BIDWM PETROS Administration Levalbuterol HCl 1.25 mg 12/20/17 07:00 12/23/17 11:35 Xopenex INH 1.25 mg RTQID PETROS Administration Lorazepam 1 mg 12/22/17 11:26 12/23/17 09:03 Ativan PO 1 mg QID PRN Administration Anxiety Methylprednisolone 40 mg 12/23/17 08:00 12/23/17 08:42 Solu-Medrol (40mg Vial) IVP 40 mg BIDWM PETROS Administration Morphine Sulfate 2 mg 12/18/17 18:56 12/23/17 01:07 Morphine IVP 2 mg Q2H PRN Administration Pain 8 to 10 Morphine Sulfate 10 mg 12/18/17 19:06 12/23/17 09:04 Roxanol PO 10 mg Q12H PRN Administration Pain/Dyspnea Multivitamins 1 tab 12/19/17 09:00 12/23/17 08:49 Theragran PO 1 tab DAILY PETROS Administration Theophylline 400 Mg 1 each 12/19/17 07:26 12/22/17 21:13 Er Tab PO 1 each QPM PETROS Administration Polyethylene Glycol 17 gm 12/19/17 09:00 12/23/17 09:07 Miralax PO Not Given DAILY PETROS Senna 8.6 - 17.2 mg 12/19/17 09:00 12/23/17 09:07 Senokot PO Not Given DAILY PETROS Sodium Chloride 10 ml 12/18/17 18:46 12/22/17 16:56 Normal Saline Flush 0.9% IVP 10 ml PRN PRN Administration NEEDED PER PROVIDER ORDERS Sodium Chloride 10 ml 12/19/17 01:00 12/23/17 08:42 Normal Saline Flush 0.9% IVP 10 ml 0100,0900,1700 PETROS Administration Temazepam 15 mg 12/18/17 18:56 12/20/17 21:00 Restoril PO 15 mg QPM PRN Administration Insomnia Zolpidem Tartrate 5 mg 12/21/17 20:00 12/22/17 21:13 Ambien PO 5 mg QPM PRN Administration Insomnia - Lab Result Fish Bone Diagrams: 12/23/17 06:20 12/23/17 06:20 - Additional Planning My Orders: My Active Orders 12/22/17 17:00 guaiFENesin [Mucinex] 600 mg PO BIDWM 12/23/17 08:00 methylPREDNISolone SUCCINATE [SOLU-Medrol (40MG VIAL)] 40 mg IVP BIDWM Subjective - Subjective Patient Reports: Feeling Better, Resting Comfortably Objective Vital Signs: Vital Signs - 24 hr 12/22/17 12/22/17 12/22/17 14:00 16:34 19:21 Temperature 36.6 C 36.8 C Heart Rate 94 88 Heart Rate [ 90 81 Brachial] Respiratory 16 18 16 Rate Blood Pressure 131/70 H 118/68 [Right Brachial artery] O2 Saturation 98 98 12/23/17 12/23/17 12/23/17 02:00 08:11 08:20 Temperature 36.6 C 36.9 C Heart Rate 88 Heart Rate [ 71 77 Brachial] Respiratory 16 18 16 Rate Blood Pressure 152/71 H 136/76 H [Right Brachial artery] O2 Saturation 95 96 12/23/17 11:37 Temperature Heart Rate 90 Heart Rate [ Brachial] Respiratory 16 Rate Blood Pressure [Right Brachial artery] O2 Saturation Oxygen O2 Source Nasal cannula I&O (Last 24 Hrs): Intake and Output Totals x24h 12/21/17 12/22/17 12/23/17 23:59 23:59 23:59 Intake Total 1640 1190 366 Output Total 900 800 550 Balance 740 390 -184 General: Alert, Oriented x3 HEENT: Mucous membr. moist/pink Neck: Supple, No JVD Neuro: Non Focal, Other (Intentional tremor when using hands) Cardiovascular: No murmurs Respiratory: Breath sounds nml, Other (Prolonged expiratory phase) Abdomen: Soft Extremities: No edema - Results Results: Laboratory Results WBC 20.7 x10^3/uL (4.8-10.8) H 12/23/17 06:20 RBC 3.82 10^6/uL (4.20-5.40) L 12/23/17 06:20 Hgb 10.3 g/dL (12.0-16.0) L 12/23/17 06:20 Hct 32.3 % (37.0-47.0) L 12/23/17 06:20 MCV 84.6 fL (81.0-99.0) 12/23/17 06:20 MCH 27.1 pg (27.0-31.0) 12/23/17 06:20 MCHC 32.0 g/dL (32.0-36.0) 12/23/17 06:20 RDW 15.0 % (12.0-15.0) 12/23/17 06:20 Plt Count 262 10^3/uL (130-450) 12/23/17 06:20 MPV 8.0 fL (7.9-10.8) 12/23/17 06:20 Neut # Not Reportable 12/23/17 06:20 Lymph # Not Reportable 12/23/17 06:20 [place] # Not Reportable 12/23/17 06:20 Eos # Not Reportable 12/23/17 06:20 Baso # Not Reportable 12/23/17 06:20 Absolute Nucleated RBC Not Reportable 12/23/17 06:20 Total Counted 100 12/23/17 06:20 Band Neuts % (Manual) 1 % (0-10) 12/23/17 06:20 Abnorm Lymph % (Manual) 0 % 12/23/17 06:20 Metamyelocytes % 1 % (-0) H 12/23/17 06:20 Nucleated RBC % Not Reportable 12/23/17 06:20 Neutrophils # (Manual) 17.0 10^3/uL (1.5-6.6) H 12/23/17 06:20 Lymphocytes # (Manual) 2.1 10^3/uL (1.5-3.5) 12/23/17 06:20 Monocytes # (Manual) 1.2 10^3/uL (0.0-1.0) H 12/23/17 06:20 Eosinophils # (Manual) 0.2 10^3/uL (0-0.7) 12/23/17 06:20 Basophils # (Manual) 0.0 10^3/uL (0-0.1) 12/23/17 06:20 Manual Slide Review Indicated 12/18/17 15:45 Platelet Estimate NORMAL (130-450,000) (NORMAL) 12/23/17 06:20 Platelet Morphology NORMAL APPEARANCE (NORMAL) 12/18/17 15:45 RBC Morph Micro Appear NORMAL APPEARANCE (NORMAL) 12/23/17 06:20 D-Dimer > 1050.0 ng/mL (200.0-255.0) H 12/18/17 15:45 Sodium 139 mmol/L (135-145) 12/23/17 06:20 Potassium 3.9 mmol/L (3.5-5.0) 12/23/17 06:20 Chloride 93 mmol/L (101-111) L 12/23/17 06:20 Carbon Dioxide 38 mmol/L (21-32) H 12/23/17 06:20 Anion Gap 8.0 (6-13) 12/23/17 06:20 BUN 15 mg/dL (6-20) 12/23/17 06:20 Creatinine 0.4 mg/dL (0.4-1.0) 12/23/17 06:20 Estimated GFR (MDRD) 160 (>89) 12/23/17 06:20 Glucose 83 mg/dL (70-100) 12/23/17 06:20 Calcium 8.6 mg/dL (8.5-10.3) 12/23/17 06:20 Total Bilirubin 0.6 mg/dL (0.2-1.0) 12/23/17 06:20 AST 17 IU/L (10-42) 12/23/17 06:20 ALT 21 IU/L (10-60) 12/23/17 06:20 Alkaline Phosphatase 49 IU/L (42-121) 12/23/17 06:20 Troponin I < 0.04 ng/mL (<0.49) 12/18/17 20:54 B-Natriuretic Peptide 67 pg/mL (5-100) 12/18/17 15:45 Total Protein 5.1 g/dL (6.7-8.2) L 12/23/17 06:20 Albumin 2.8 g/dL (3.2-5.5) L 12/23/17 06:20 Globulin 2.3 g/dL (2.1-4.2) 12/23/17 06:20 Albumin/Globulin Ratio 1.2 (1.0-2.2) 12/23/17 06:20 Lipase 14 U/L (22-51) L 12/18/17 15:45 - Procedures Procedures: Procedures ASSISTANCE WITH RESPIRATORY VENTILATION, <24 HRS, CPAP (08/21/15) CATARAC PHACOEMULS/ASPIR (04/29/13) CONTINUOUS INVASIVE MECHANICAL VENTILATION <96 CONSEC HRS (06/07/13) IMPLANTED LENS REMOVAL (04/08/13) INSERT INFUSION DEV IN R INT JUGULAR VEIN, PERC (08/21/15) INSERT LENS AT CATAR EXT (04/29/13) INSERTION OF ENDOTRACHEAL AIRWAY INTO TRACHEA, VIA OPENING (08/21/15) INSERTION OF FEEDING DEVICE INTO STOMACH, VIA OPENING (08/21/15) NON-INVASIVE MECHANICAL VENTILATION (06/07/13) RESPIRATORY VENTILATION, 24-96 CONSECUTIVE HOURS (08/21/15) SECONDARY INSERT LENS (04/08/13)
[2017-12-23] MEDS: SODIUM CHLORIDE FLUSH 0.9% 10 ML SYRINGE IVP PRN ×3 (14:35→22:30)
[2017-12-23] MEDS: ZOLPIDEM 5 MG TABLET PO PRN (20:51)
[2017-12-23] MEDS: THEOPHYLLINE 400 MG PO SCH (20:51)
[2017-12-24] MEDS: SODIUM CHLORIDE FLUSH 0.9% 10 ML SYRINGE IVP SCH ×2 (01:18→08:50)
[2017-12-24] MEDS: LORazepam 0.5 MG TABLET PO PRN ×2 (03:13→08:46)
[2017-12-24] MEDS: MORPHINE 2 MG/ML SYRINGE IVP PRN ×2 (03:16→08:49)
[2017-12-24] MEDS: SODIUM CHLORIDE FLUSH 0.9% 10 ML SYRINGE IVP PRN (03:16)
[2017-12-24] MEDS: methylPREDNISolone SUCCINATE 40 MG/ML VIAL IVP SCH (08:46)
[2017-12-24] MEDS: guaiFENesin 600 MG TABLET PO SCH (08:49)
[2017-12-24] MEDS: FAMOTIDINE 20 MG TABLET PO SCH (08:49)
[2017-12-24] MEDS: DOCUSATE SODIUM 250 MG CAPSULE PO SCH (08:49)
[2017-12-24] MEDS: MULTIVITAMIN TABLET PO SCH (08:49)
[2017-12-24] MEDS: ASPIRIN CHEW 81 MG TABLET PO SCH (08:49)
[2017-12-24] MEDS: BUDESONIDE 0.5 MG/2 ML NEB INH SCH (10:47)
[2017-12-24] MEDS: LEVALBUTEROL 1.25 MG/3 ML NEB INH SCH (10:47)
[2017-12-24] MEDS: SENNA 8.6 MG TABLET PO SCH (11:33)
[2017-12-24] MEDS: POLYETHYLENE GLYCOL 3350 17 GM PACKET PO SCH (11:33)
--- NOTE | 2017-12-24 12:00 | Discharge Plan ---
Discharge Plan Disposition: Home Health Service Condition: Fair Prescriptions: HYDROcod/ACETAM 5/325 [[place] 5/325] 2 each PO Q6H PRN #30 tablet PRN Reason: Pain LORazepam [Ativan] 0.5 mg PO QID PRN #25 tablet PRN Reason: Anxiety Zolpidem [Ambien] 5 mg PO QPM PRN #10 tablet PRN Reason: Insomnia Diet: Regular Activity Restrictions: Activity as Tolerated Shower Restrictions: No Driving Restrictions: Yes (no driving) Assistance Devices: Wheelchair (has at home), Walker (has at home), Other ( bedside commode has at home) Additional Instructions or Follow Up instructions: You were admitted to the hospital because you were unable to get home safely from the previous admission. With a previous admission, you had exacerbation of severe end-stage emphysema from pneumonia. You are very close to dying. However, you recovered enough that you wanted more treatment. You also felt like you did not want to go to a retirement facility for rehab. But once you were actually discharged, you are unable to get herself into your car and returned to the hospital. You're back at the same condition you were at the last discharge. You have end-stage lung disease from emphysema and lung scarring. You are very easily short of breath. You need a lot of help with activities of daily living such as getting up to go to the bathroom, dressing yourself, bathing yourself, feeding yourself. Unfortunately, we do feel that your condition is end stage and we would not be surprised to have you continue to deteriorate further from your lungs. You continue to decline going to a correction for rehab. As such you will be returning to home with your daughter's help. We will be sending you home with a home health nurse, physical therapist, occupational therapist, and a new trilogy machine to help your breathing and make you more comfortable. You have asked for [place], Ambien, and Ativan. We can give you a few days supply but you must see your primary care provider in follow-up to get all of those refilled. Follow-Up Care: Home Health - RN, Home Health - PT, Home Health - OT No Smoking: If you smoke, Please STOP! Call for help. Follow-up with: Eric Leslie MD [Primary Care Provider] -
[2017-12-24 12:48] VITALS: BP 139/67
--- NOTE | 2017-12-24 13:45 | XRAY Report ---
FRONTAL CHEST: 12/24/2017 CLINICAL INDICATION: Followup pneumonia. COMPARISON: 12/18/2017. FINDINGS: Frontal view of the chest demonstrates continued improvement in left-sided infiltrates. The right lung remains hyperinflated and clear. No pneumothorax. IMPRESSION: CONTINUED IMPROVEMENT IN LEFT-SIDED INFILTRATES. TD: 12/24/2017 13:02
--- NOTE | 2018-01-07 23:24 | DISCHARGE SUMMARY ---
Physician: Pippa Dodd MD DATE OF ADMISSION: 12/18/2017 DATE OF DISCHARGE: 12/24/2017 DISCHARGE DIAGNOSES 1. Acute respiratory failure with hypoxia. 2. Syncope. 3. Chronic obstructive pulmonary disease with chronic bronchitis. 4. Healthcare-associated pneumonia. 5. Personality disorder. 6. Anxiety. DISCHARGE MEDICATIONS 1. DuoNeb via nebulizer every 4 hours as needed. 2. Beauty 5/325 two tablets every 6 hours as needed for pain. 3. Ativan 0.5 mg p.o. q.i.d. as needed for anxiety of respiratory effort. 4. Ambien 5 mg p.o. q.p.m. 5. Aspirin 81 mg daily. 6. Pulmicort Flexhaler 2 puffs b.i.d. 7. Mucinex 600 mg p.o. b.i.d. 8. Xopenex 1.25 via inhaler in case she gets tachycardia from DuoNeb. 9. Multivitamin 1 tablet daily. 10. Striverdi Respimat 2 puffs daily. 11. [place] 3 fish oil 1 tablet daily. 12. Rm-24 400 mg every evening. 13. Spiriva was asked to be discontinued because she is using DuoNeb. I explained to her she can use Spiriva or the DuoNeb, but she cannot use both. If she is getting Spiriva, use Xopenex instead. PRINCIPAL PROCEDURES 1. Chest x-ray with improving consolidation in the left mid and lower lung that was concerning for aspiration or pneumonia superimposed on chronic lung disease when compared to multiple chest x-rays 05/30/2009 and 12/12/2017. 2. Repeat chest x-ray showing continued improvement in left-sided infiltrates. 3. Pathology result. Requested slide for leukocytosis showed changes consistent with acute inflammation or sepsis. No dysplastic morphologic features or circulating blasts identified. 4. Respiratory culture showing normal deborah. HOSPITAL COURSE: The patient is a 67-year-old female who has end-stage COPD with chronic hypoxia. She also has pulmonary hypertension. She is on oxygen at home. She was admitted to an outside facility for pneumonia requiring ventilator support. She was discharged. She was only home for a week or so when then she presented here with acute respiratory failure with hypoxia as well. She was again intubated, treated for healthcare-associated pneumonia. She did not want to be transferred to a prison facility for rehabilitation after discharge. During her stay, she identified herself as not wanting to be further intubated. Advanced care planning discussions were held and she stated that she wanted to be Do Not Resuscitate, transition to palliative care only, and as such anticipated . During that stay, she was made comfortable. Ativan, morphine, medicines given basically for just palliative care. After a few days, the patient was now more awake and basically stating that if she was not going to , if this was going to take too long, that she wanted treatment to resume. As such, resumed her nebs, steroids. She completed her antibiotic therapy for pneumonia. Again, she was very insistent, in spite of being very weak and disabled, that she wanted to go home. She did not want rehab or assisted living facility or prison facility. Her daughter works at the local prison facility and both she and daughter stated that she would not want her mother treated there. At the patient's insistence, she was discharged to home in spite of our reservations. She was really too weak and disabled to do that. She got as far as her car in the parking lot. She became increasingly hypoxic, tachypneic, and then passed out. She was brought back into the hospital via the emergency room. She was treated as acute respiratory failure with hypoxia, syncope from the hypoxia. For the rest of her stay, she received nebulizers, steroids, and completed her antibiotic therapy with p.o. Augmentin and azithromycin. The patient was self-stated angry. She self-stated that she did not want to be here. She did not like the care here, but she did not want to be transferred. It required quite a bit of coaxing for her to cooperate with even physical therapy and she refused it several times. We would encourage her by saying that in order for her to get home and be able to at least help her daughter take care of her, she needed to have the strength to transfer. She was adamant that she did not want to work with physical therapy. She would then express her displeasure and anger with the therapist that was working with her. She requested treatment for anxiety and requested opiates for helping with respiratory effort. We still thought that this patient has end-stage lung disease and would need palliative care consult, and would eventually from her illness in the next few months. This is also in view of the fact that the patient herself was becoming more and more disabled. We did send her home with respiratory therapy via med consult and the use of Trilogy. She will also be sent home with home health nurse for monitoring of her medications, use of her medications correctly and for followup lung exams. We are hoping that she would cooperate with the physical therapist in her own home, as well as occupational therapist. She was discharged in stable condition with a poor prognosis. Temperature is 36.7, pulse 112 with exertion, blood pressure 139/67. At rest, respirations are 14. With exertion such as sitting up in bed, respirations go to 20. When she is at rest, she is able to do 1 or 2 sentences before having to increase respiratory effort. With exertion of sitting up, she does pursed lip breathing. She requires 4 liters of nasal cannula to maintain O2 saturation of 96%. She is an alert, oriented, elderly female. Neck is supple. Lungs are very, very quiet with poor air movement. On a good day, she will wheeze and bring up some phlegm. Right now at discharge, she is having increased respiratory effort just with the movement of transferring her to a wheelchair to get out to the car but at baseline, no tachypnea. Again, I cannot emphasize how quiet her lungs are and how prolonged her exhalation phases. The abdomen is slightly protuberant from slight kyphosis of the spine. Hypoactive bowel sounds. Nursing reports that she brings up moderate thick bloody secretions. No edema is present in her legs. The effort of getting up and sitting up causes tremors and agitation. She is being sent home with a wheelchair, but she already has one at home. Walker is at home. Bedside commode at home. She requested Beauty, Ambien and Ativan, and those were given to her for a few days' supply, but requested that she see her primary care provider in followup to get the rest of these medications. Her primary care provider is Josué Leslie. The home health will also need to be done for not just her lung exam and followup of her medications, but bath aide. TD: 01/07/2018 22:07
== END 2017-12-24 14:10 | disposition home health service (06) | DRG 189 ==
LOC: ED 15:43 → MS2 18:46
PROVIDERS: ADMIT Internal Medicine; ATTEND Specialist
DX: J96.01 Acute respiratory failure with hypoxia (principal); J18.9 Pneumonia, unspecified organism; J18.1 Lobar pneumonia, unspecified organism; J44.0 Chronic obstructive pulmonary disease with (acute) lower respiratory infection; I50.810 Right heart failure, unspecified; I27.29 Other secondary pulmonary hypertension; J84.10 Pulmonary fibrosis, unspecified; J44.1 Chronic obstructive pulmonary disease with (acute) exacerbation; R55 Syncope and collapse; Y95 Nosocomial condition; F60.9 Personality disorder, unspecified; F41.0 Panic disorder [episodic paroxysmal anxiety]; I27.20 Pulmonary hypertension, unspecified; F17.200 Nicotine dependence, unspecified, uncomplicated; Z66 Do not resuscitate; Z79.891 Long term (current) use of opiate analgesic; Z99.81 Dependence on supplemental oxygen; Z79.899 Other long term (current) drug therapy; Z87.01 Personal history of pneumonia (recurrent); Z79.82 Long term (current) use of aspirin; Z79.51 Long term (current) use of inhaled steroids
CPT/HCPCS: 36415; 71045; 80048; 80053; 83690; 83880; 84484; 85025; 85379; 87070; 87205; 94640; 96374; 99283; 99284; 99285

== ENCOUNTER 2017-12-24 14:26 | Outpatient (CLI) | payer MEDICARE, OTHER | END 2017-12-24 14:27 | disposition home or self-care (01) | LOC: EMS 14:26 | PROVIDERS: ATTEND Surgery | DX: J44.9 Chronic obstructive pulmonary disease, unspecified (principal); Z74.01 Bed confinement status; Z99.81 Dependence on supplemental oxygen | CPT/HCPCS: A0425; A0428 ==